=== PATIENT | female | born 1970 | race Caucasian/White ===

== ENCOUNTER 2016-05-03 15:13 | Emergency (ER) | payer MEDICAID, MEDICARE ==
[~2016-05-03] VITALS: Ht 180.3 cm; Wt 108.9 kg
[~2016-05-03 15:13] MED LIST: ACHD5005 PO; ACHYD1T PO; ALBU17AE23 IH; AZIT500T2 PO; CLIN150V3 IJ; CYCL10TA9; DOXY100C2 PO; FIBERCHOICE; FISH OIL 1,2001 EAC1; FRS325T; GABA300T; HYDR1TAB PO; NAPR-243 PO; NITR100C3 PO; OXYC-12 PO; PEDI100T PO; PNT40TEC; SCR1T; TYLENOL #3 PO; VENL150C PO; VNL75T
--- OUTSIDE RECORDS SUMMARY | 2016-05-03 15:21 | XMS REPORT ---
Author ARIANNE Sarabia [facility] [employer] Address Unknown Phone Unavailable Care Team Providers [facility] Worker Name Role Phone ARIANNE CARTAGENA CP Unavailable Allergies, Adverse Reactions, Alerts Substance Reaction Event Type Latex Gloves Info Not Available Drug Allergy Tylenol Info Not Available Drug Allergy Sulfazine hives Drug Allergy Risperidone wt gain Drug Allergy Bactrim hives Drug Allergy Problems Problem Type Condition Code Onset Dates Condition Status Assessment Dental examination Z01.20 Active Problem Dizziness R42 Active Problem Routine adult health maintenance Z00.00 Active Problem Weight loss R63.4 Active Problem Irritable bowel syndrome with diarrhea K58.0 Active Problem Depression with anxiety F41.8 Active Problem Excessive and frequent menstruation with regular cycle N92.0 Active Problem Arthritis M19.90 Active Medications Medication Code System Code Instructions Start Date End Date Status Dosage [place] [facility] [place] [address]-13 5-325 MG Orally every 6 hrs Jan 17, 2016 Jan 21, 2016 1 tablet as needed Mobic [facility] [address]-66 7.5 MG Orally 2 times a day May 13, [address] [facility] [place] [address]-43 500 MG Orally Four times a day Jan 17, 2016 Jan 24, [address] [facility] 43318937148 8-90 MG Orally Twice a day [address] [facility] [id number] 20 MG TAKE ONE TABLET BY MOUTH TWICE DAILY NEEDED (MUST KEEP 10/26/2014 APPOINTMENT FOR REFILL) Procedures Procedure Coding System Code Date INTRAORL-PERIAPICAL 1 FILM 06750 CPT-4 D0220 Jan 17, 2016 INTRAORL-PERIAPICAL EA ADD FILM CPT-4 D0230 Jan 17, 2016 LTD ORAL EVALUATION - PROBLEM FOCUS CPT-4 D0140 Jan 17, 2016 BITEWING - SINGLE FILM CPT-4 D0270 Jan 17, 2016 Vital Signs Date/Time: Jan 17, 2016 Blood Pressure Diastolic 78 mmHg Blood Pressure Systolic 125 mmHg Height 72 in Results No Known Results Summary Purpose eClinicalWorks Submission
[2016-05-03] MEDS ORDERED: NALT1TAB PO (16:06)
[2016-05-03] MEDS ORDERED: FERR159T2 PO (16:06)
[2016-05-03] MEDS ORDERED: CLINDAMYCIN 600 MG/4ML (CLEOCIN) VIAL IM ONE (17:00)
[2016-05-03] MEDS ORDERED: methylPREDNISolone 125 MG (Solu-MEDROL) VIAL IM ONE (17:00)
--- NOTE | 2016-05-03 17:01 | ED Integumentary General ---
General Chief Complaint: Head/Cervical Problems Stated Complaint: KNOT ON HEAD Nursing Triage Note: Pt reports swelling to L yarsani x3 days and states swelling continues to get worse. Pt advises area is tender to touch and she is now experiencing pain in L ear and L jaw. Pt also c/o ISIDRO x3 days. Source: patient History of Present Illness Time seen by provider: 16:40 Initial Comments PT C/O PAIN, REDNESS AND SWELLING TO LEFT LUTHERAN AREA FOR THE LAST 2 DAYS STARTED OUT A SMALL PIMPLE AND NOW HAS GRADUALLY BECOME BIGGER, AND MORE PAINFUL NO DRAINAGE NO FEVER NO VISION CHANGES STATES NOW IT IS MAKING HER LEFT JAW AND EAR HURT AND IT'S GIVING HER A HEADACHE PCP: RUBA-ELIANA Allergies and Home Medications Allergies Coded Allergies: Sulfa (Sulfonamide Antibiotics) (Unverified Allergy, Mild, 12/19/08) Home Medications Clindamycin HCl 300 Mg Capsule #40 300 MG PO QID Prescribed by: ANNA MARIE TEMPLE on 05/03/16 1703 Ferrous Sulfate, Dried 159 Mg Tablet.er Unknown Dose PO DAILY (Reported) Hydrocodone Bit/Acetaminophen 1 Each Tablet #14 1-2 EACH PO Q6H PRN PRN Prescribed by: HIRA ALCALA on 08/02/11 1854 Methylprednisolone 4 Mg Tab.ds.pk #1 4 MG PO UD Prescribed by: ANNA MARIE TEMPLE on 05/03/16 1703 Naltrexone HCl/Bupropion HCl 1 Each Tablet.er 2 EACH PO BID (Reported) Constitutional: no symptoms reported EENTM: see HPI Respiratory: no symptoms reported Cardiovascular: no symptoms reported Gastrointestinal: no symptoms reported Genitourinary: no symptoms reported Musculoskeletal: see HPI Skin: see HPI Psychiatric/Neurological: See HPI HeadacheDenies Numbness, Denies Paresthesia , Denies Weakness Endocrine: No Symptoms Reported Hematologic/Lymphatic: No Symptoms Reported Past Szbuivk-Tkmble-Wcjthz Hx Patient Social History Alcohol Use: Denies Use Recreational Drug Use: No Smoking Status: Never a Smoker Recent Foreign Travel: No Contact w/Someone Who Travel: No Recent Infectious Disease Expo: No Recent Hopitalizations: No Immunizations Up To Date PED Vaccines UTD: Yes Date of Influenza Vaccine: Dec 17, 2010 Seasonal Allergies Seasonal Allergies: No Surgeries HX Surgeries: Yes (C-SECTIONS, VEIN SURG IN LEGS, RIGHT SHOULDER, DXLS) Surgeries: Section, Orthopedic, Vascular Surgery Respiratory Hx Respiratory Disorders: No Cardiovascular Hx Cardiac Disorders: No Neurological Hx Neurological Disorders: No Reproductive System Hx Reproductive Disorders: No Sexually Transmitted Disease: No Genitourinary Hx Genitourinary Disorders: No Gastrointestinal Hx Gastrointestinal Disorders: Yes Gastrointestinal Disorders: Ulcer Musculoskeletal Hx Musculoskeletal Disorders: Yes Musculoskeletal Disorders: Arthritis Endocrine Hx Endocrine Disorders: Yes (hypoglycemic) HEENT HX ENT Disorders: No Cancer Hx Cancer: No Psychosocial Hx Psychiatric Problems: Yes Behavioral Health Disorders: Anxiety, Depression Blood Transfusions Hx Blood Disorders: Yes (ANEMIA) Physical Exam Vital Signs Vital Sign - Last 12Hours 05/03/16 16:00 Temp 97.2 Pulse 91 Resp 18 B/P 119/74 Pulse Ox 100 O2 Delivery Room Air Capillary Refill : Less Than 3 Seconds General Appearance: WD/WN no apparent distress HEENT: PERRL/EOMI normal ENT inspection TMs normal pharynx normal other (LEFT LUTHERAN AREA WITH 5 CM AREA OF ERYTHEMA, WARMTH, INDURATION, MILD SWELLING, WITH CENTRAL SCAB. NO AREAS OF FLUCTUANCE. NO DRAINAGE. NO STREAKS. NO TRISMUS. NO PERIORBITAL EDEMA. 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 no motor/sensory deficits alert normal mood/affect oriented x 3 Skin: normal color warm/dry other ( ABOVE) Progress/Results/Core Measures Results/Orders My Orders Orders-ANNA MARIE TEMPLE DO Clindamycin Injection (Cleocin Injection (05/03/16 17:00) Methylprednisolone Sod Succ (Solu-Medrol (05/03/16 17:00) Im/Sub-Q Injection Non-Ab Ed (05/03/16 ) Im Injection Antibiotic Ed (05/03/16 ) Vital Signs/I&O Vital Sign - Last 12Hours 05/03/16 05/03/16 16:00 17:54 Temp 97.2 98.1 Pulse 91 106 Resp 18 18 B/P 119/74 Pulse Ox 100 98 O2 Delivery Room Air Blood Pressure Mean: 89 Departure Impression Impression: Primary Impression: CELLULITIS LEFT FACE Disposition: 01 HOME, SELF-CARE Condition: Stable Departure-Patient Inst. Referrals: [facility] (PCP/Family) Primary Care Physician Patient Instructions: Cellulitis (Skin Infection), Adult (DC) Add. Discharge Instructions: TYLENOL AND MOTRIN NEEDED FOR PAIN OR FEVER ICE TO AREA AT 20 MINUTE INTERVALS FOLLOW UP WITH [facility] IN 2-3 DAYS IF NO BETTER All discharge instructions reviewed with patient and/or family. Voiced understanding. Scripts Methylprednisolone (Medrol)4 Mg Tab.ds.pk4 Mg PO UD #1 PKG Prov:ANNA MARIE TEMPLE DO 05/03/16 Clindamycin HCl 300 Mg [id number] Mg PO QID FOR INFECTION #40 CAP Prov:ANNA MARIE TEMPLE DO 05/03/16 ANNA MARIE TEMPLE DO May 03, 2016 17:01
[2016-05-03] MEDS ORDERED: CLIN300C11 PO (17:03)
[2016-05-03] MEDS ORDERED: METH4TAB PO (17:03)
[2016-05-03 17:54] VITALS: BP 122/82
== END 2016-05-03 17:54 | disposition home or self-care (01) ==
LOC: EDUNIT# 15:13 → ER 15:15
DX: L03.211 Cellulitis of face (principal)
CPT/HCPCS: 96372; 99282

== ENCOUNTER → 2017-05-24 | Outpatient (CLI) | payer MEDICAID, OTHER ==
[~2017-05-24] MED LIST changes: +CLIN300C11 PO; +FERR159T2 PO; +METH4TAB PO; +NALT1TAB PO
--- NOTE | 2017-05-24 11:18 | Diagnostic Imaging Report ---
INDICATION: Routine screening. COMPARISON: 12/19/2005. TECHNIQUE: Screening digital mammography was performed bilaterally with a Computer Aided Detection (CAD) system. FINDINGS: Moderate parenchymal density is noted bilaterally. The parenchymal pattern appears to be stable. No dominant mass or malignant-appearing microcalcifications are seen. The axillae are unremarkable. IMPRESSION: No mammographic features suspicious for malignancy are identified. ACR BI-RADS Category 1: Negative. Result letter will be mailed to the patient. Note: At least 10% of breast cancer is not imaged by mammography. Dictated by: Dictated on workstation # [id number]
== END ==
LOC: RAD 08:53
PROVIDERS: ATTEND Obstetrics & Gynecology
DX: Z12.31 Encounter for screening mammogram for malignant neoplasm of breast (principal)
CPT/HCPCS: 77067

== ENCOUNTER 2018-10-21 14:32 | Emergency (ER) | payer SELFPAY ==
[~2018-10-21] VITALS: Ht 180.3 cm; Wt 90.7 kg
--- OUTSIDE RECORDS SUMMARY | 2018-10-21 14:37 | XMS REPORT ---
Author Author DOLORES BAZAN Organization [facility] Address [address] [place] [address] Care Team Providers Care Optical Instrument Repairer Name Role Phone DOLORES BAZAN Unavailable PROBLEMS Type Condition ICD9-CM Code PQW59-QD Code Onset Dates Condition Status SNOMED Code Problem Excessive and frequent menstruation with regular cycle N92.0 Active 561081540 Problem Irritable bowel syndrome with diarrhea K58.0 Active 15235618 Problem Arthritis M19.90 Active 8749320 Problem Gastroesophageal reflux disease without esophagitis K21.9 Active 746020928 Problem Gastroesophageal reflux disease without esophagitis K21.9 Active 673257526 Problem Depression with anxiety F41.8 Active 063647603 Problem Weight loss R63.4 Active 159864916 Problem Right carpal tunnel syndrome G56.01 Active 404753552962495 Problem Iron deficiency anemia, unspecified iron deficiency anemia type D50.9 Active 23838054 ALLERGIES Substance Reaction Event Type Date Status Tylenol elevated liver enzymes Drug Allergy May, Active Sulfamethoxazole-Trimethoprim hives Drug Allergy May, Active Risperidone wt gain Drug Allergy May, Active Latex Gloves Unknown Drug Allergy May, Active ENCOUNTERS Encounter Location Date Diagnosis [facility] [id number] [place] [address] Oct, [facility] [id number] [place] [address] Sep, Bronchitis J40 and Gastroesophageal reflux disease without esophagitis K21.9 [facility] [id number] [place] [address] May, Viral URI J06.9 and Body aches R52 [facility] [id number] [place] [address] 04 Oct, 2018 Abrasion of right cornea, initial encounter S05.01XA and Encounter for immunization Z23 [place] [id number] [place] [address] Sep, Thoracic spine pain M54.6 [facility] [id number] [place] [address] July, Acute nasopharyngitis J00 [facility] [address] [address] Jun, Dysuria R30.0 [place] [address] [address] May, Iron deficiency anemia, unspecified iron deficiency anemia type D50.9 [place] [id number] [place] [address] May, Iron deficiency anemia, unspecified iron deficiency anemia type D50.9 [place] [address] [address] May, Transition of care performed with sharing of clinical summary Z91.89 ; Iron deficiency anemia, unspecified iron deficiency anemia type D50.9 ; Irritable bowel syndrome with diarrhea K58.0 ; Weight loss R63.4 ; Right carpal tunnel syndrome G56.01 and Arthritis M19.90 [place] [id number] [place] [address] Oct, Iron deficiency anemia, unspecified iron deficiency anemia type D50.9 [place] [id number] [place] [address] Sep, Irritable bowel syndrome with diarrhea K58.0 and Right carpal tunnel syndrome G56.01 [place] [id number] [place] [address] Sep, Routine adult health maintenance Z00.00 ; Iron deficiency anemia, unspecified iron deficiency anemia type D50.9 and Irritable bowel syndrome with diarrhea K58.0 [place] [id number] [place] [address] Sep, Routine adult health maintenance Z00.00 ; Irritable bowel syndrome with diarrhea K58.0 ; Right carpal tunnel syndrome G56.01 ; Iron deficiency anemia, unspecified iron deficiency anemia type D50.9 and Weight loss R63.4 [place] [id number] [place] [address] Sep, Lateral epicondylitis of elbow M77.10 and Right carpal tunnel syndrome G56.01 [place] [address] [address] Aug, [facility] [address] [address] July, Tick bite, initial encounter W57.XXXA [place] [address] [address] May, [place] [address] [address] Feb, Right carpal tunnel syndrome G56.01 and Lateral epicondylitis of elbow M77.10 [place] [address] [address] Jan, Dental caries K02.9 [place] [id number] [place] [address] Jan, Transient synovitis, right elbow M67.321 [place] [id number] [place] [address] Jan, Transient synovitis, right elbow M67.321 [place] [address] [address] 31 Dec, 2015 Dental examination Z01.20 [place] [id number] [place] [address] 11 Dec, 2015 Olecranon bursitis, right elbow M70.21 [place] [address] [address] 13 Nov, 2015 [facility] [address] [address] 14 Sep, 2015 Right elbow pain M25.521 ; Olecranon bursitis, right elbow M70.21 and Morbid obesity due to excess calories E66.[address] [address] Aug, Arthritis M19.90 ; Depression with anxiety F41.8 ; Weight loss R63.4 and Dizziness R42 [address] [address] July, Stress headaches F45.41 and Dizziness R42 [facility] [address] [id number] Jun, Dental caries K02.[address] [address] May, Sinusitis J32.9 and Foot pain, left M79.672 [facility] [id number] [place] [address] Apr, Acute sinusitis J01.90 and Sore throat J02.9 [facility] [address] [id number] Apr, Dental caries K02.9 [facility] [id number] [place] [id number] Feb, Encounter for dental examination Z01.[address] [address] Dec, Routine adult health maintenance Z00.00 and Excessive and frequent menstruation with regular cycle N92.0 [place] [address] [address] Dec, Routine adult health maintenance Z00.00 ; Excessive and frequent menstruation with regular cycle N92.0 ; Arthritis M19.90 ; Irritable bowel syndrome with diarrhea K58.0 and Depression with anxiety F41.8 [facility] [address] [address] Oct, [facility] [id number] [address] Oct, Upper respiratory infection, acute 465.9 [facility] [id number] [place] [address] July, Acute upper respiratory infection 465.9 [facility] [address] [address] Jun, [facility] [id number] [place] [address] Jun, [facility] [id number] [place] [address] May, [facility] [id number] [place] [address] May, [facility] [address] [address] Apr, [facility] [address] [address] Apr, [facility] [address] [address] Apr, [facility] [address] [address] Apr, [facility] [address] [address] Jan, [facility] [address] [address] Jan, [facility] [address] [address] Jan, [facility] [id number] [place] [address] [place] [address] Jan, [facility] [place] [facility] [address] [id number] [place] [address] Jan, [facility] [place] [facility] [address] [id number] [place] [address] Jan, [facility] [place] [facility] [address] [id number] [place] [address] Dec, [facility] [place] [facility] [address] [id number] [place] [address] Dec, [facility] [place] [facility] [address] [id number] [place] [address] Dec, [facility] [place] [facility] [address] [id number] [place] [address] Dec, [facility] [place] [facility] [address] [id number] [place] [address] Nov, [facility] [place] [facility] [address] [id number] [place] [address] Nov, [facility] [place] [facility] [address] [id number] [place] [address] Oct, [facility] [place] [facility] [address] [id number] [place] [address] Oct, [facility] [place] [facility] [address] [id number] [place] [address] Aug, [facility] [place] [facility] [address] [id number] [address] Aug, [facility] [place] [facility] [address] [id number] [place] [address] Aug, [facility] [place] [facility] [address] [id number] [place] [address] Aug, [facility] [place] [facility] [address] [id number] [place] [address] Feb, [facility] [place] [facility] [address] [id number] [place] [address] Feb, [facility] [place] [facility] [address] [id number] [place] [address] Feb, [facility] [place] [facility] [address] [id number] [place] [address] Feb, [facility] [place] [facility] [address] [id number] [place] [address] Dec, [facility] [place] [facility] [address] [id number] [place] [address] Nov, [facility] [place] [facility] [address] [id number] [place] [address] Oct, [facility] [place] [facility] [address] [id number] [place] [address] Oct, [facility] [place] [facility] [address] [id number] [place] [address] Oct, [facility] [place] [facility] [address] [id number] [place] [address] Sep, [facility] [place] [facility] [address] [id number] [place] [address] Sep, [facility] [place] [facility] [address] [id number] [place] [address] Sep, [facility] [place] [facility] [address] [id number] [place] [address] Sep, [facility] [place] [facility] [address] [id number] [place] [address] Sep, [facility] [place] [facility] [address] [id number] [place] [address] Sep, [facility] [place] [facility] [address] [id number] [place] [address] Aug, [facility] [place] [facility] [address] [id number] [place] [address] Aug, [facility] [address] [id number] [place] [address] July, [facility] [address] [id number] [place] [address] July, [facility] [address] [id number] [place] [address] July, [facility] [place] [facility] [address] [id number] [place] [address] Jun, [facility] [address] [id number] [place] [address] Jun, [facility] [address] [id number] [place] [address] Jun, [facility] [address] [id number] [place] [address] May, [facility] [place] [facility] [address] [id number] [place] [address] Apr, [facility] [address] [id number] [place] [address] Nov, [facility] [place] [facility] [address] [id number] [place] [address] Mar, [facility] [address] [id number] [address] Feb, [facility] [place] [facility] [address] [id number] [address] Jan, [facility] [place] [facility] [address] [id number] [place] [address] Jan, [facility] [place] [facility] [address] [id number] [place] [address] Sep, [facility] [place] [facility] [address] [id number] [place] [address] Aug, [facility] [place] [facility] [address] [id number] [place] [address] 11 Jul, 2010 [facility] [address] [id number] [place] [address] 12 Jun, 2010 [facility] [address] [id number] [place] [address] 15 May, 2010 [facility] [address] [id number] [place] [address] 10 Feb, 2010 [facility] [address] [id number] [place] [address] 08 Feb, 2010 [facility] [address] [id number] [place] [address] 26 Jan, 2010 [facility] [address] [id number] [place] [address] 16 Jan, 2010 [facility] [address] [id number] [place] [address] 2010 [facility] [address] [id number] [place] [address] 2010 [facility] [address] [id number] [place] [address] 10 Jan, 2010 [facility] [address] [id number] [place] [address] 04 Jan, 2010 [facility] [address] [id number] [place] [address] 16 Oct, 2009 [facility] [address] [id number] [place] [address] 11 Aug, 2009 [facility] [address] [id number] [place] [address] 13 Mar, 2009 [facility] [address] [id number] [place] [address] 20 Jan, 2009 [facility] [address] [id number] [place] [address] Jan, [facility] [address] [facility] [id number] [place] [address] Dec, [facility] [address] [facility] [id number] [address] Dec, [facility] [address] [facility] [id number] [place] [address] July, IMMUNIZATIONS No Known Immunizations SOCIAL HISTORY Never Assessed REASON FOR VISIT cough, congestion, body aches. been sick since sunday evening. [email or web address] PLAN OF CARE Activity Details Follow Up if not improving with PCP or reg follow up Reason: VITAL SIGNS Height 72 in 2018-05-28 Weight 237.0 lbs 2018-05-28 Temperature 98.0 degrees Fahrenheit 2018-05-28 Heart Rate 80 bpm 2018-05-28 Respiratory Rate 20 2018-05-28 BMI 32.14 kg/m2 2018-05-28 Blood pressure systolic 128 mmHg 2018-05-28 Blood pressure diastolic 74 mmHg 2018-05-28 MEDICATIONS Medication Instructions Dosage Frequency Start Date End Date Duration Status Bentyl 10 MG Orally Four times a day 2 capsules 6h Active Tessalon Perles 100 MG Orally Three times a day PRN 1 -2 capsules May, 7 days Active Mobic 15 MG Orally twice a day 1 tablet 12h Active Multivitamin Gummies Womens - Orally Once a day 1 tablet 24h 30 days Active Ferrous Sulfate 325 (65 Fe) MG Orally Once a day 1 tablet 24h 30 days Active Contrave 8-90 MG Orally Twice a day 2 tablets 12h Active Gentamicin Sulfate 0.3 % Ophthalmic every 4 hrs while awake 1 drop into affected eye Dec, 5 days Not-Taking RESULTS Name Result Date Reference Range INFLUENZA A & B (IN HOUSE) 2018-05-28 INFLUENZA A negative INFLUENZA B negative Control + Lot # [id number] Exp date 2020 PROCEDURES Procedure Date Ordered Result Body Site INFLUENZA ASSAY W/OPTIC May 28, 2018 INSTRUCTIONS MEDICATIONS ADMINISTERED No Known Medications MEDICAL (GENERAL) HISTORY Type Description Date Medical History osteoarthritis Medical History hx of iron deficiency anemia Medical History PTSD Medical History depression Medical History Anxiety disorder Medical History mood disorder Medical History hx of blood clot in leg Surgical History surgery - right shoulder Surgical History section x2 Surgical History cyst removal Surgical History vein removal 2010 Surgical History Tendon restructure in right forearm/elbow 10/2016 Hospitalization History childbirth Hospitalization History elevated liver enzymes x6 weeks 1994
--- OUTSIDE RECORDS SUMMARY | 2018-10-21 14:37 | XMS REPORT ---
Author Author MATEO Woods Organization [facility] Address [address] [place] [address] Care Team Providers Care Client Technologies Analyst Name Role Phone MATEO Woods Unavailable PROBLEMS Type Condition ICD9-CM Code [id number] Code Onset Dates Condition Status SNOMED Code Problem Excessive and frequent menstruation with regular cycle N92.0 Active 889080793 Problem Irritable bowel syndrome with diarrhea K58.0 Active 26799265 Problem Arthritis M19.90 Active 3009342 Problem Gastroesophageal reflux disease without esophagitis K21.9 Active 709319298 Problem Gastroesophageal reflux disease without esophagitis K21.9 Active 208813957 Problem Depression with anxiety F41.8 Active 897383710 Problem Weight loss R63.4 Active 912238070 Problem Right carpal tunnel syndrome G56.01 Active [id number] Problem Iron deficiency anemia, unspecified iron deficiency anemia type D50.9 Active 32611209 ALLERGIES No Information ENCOUNTERS Encounter Location Date Diagnosis [facility] [address] [address] Oct, [facility] [address] [address] Sep, Bronchitis J40 and Gastroesophageal reflux disease without esophagitis K21.9 [facility] [address] [address] May, Viral URI J06.9 and Body aches R52 [facility] [address] [address] Dec, Abrasion of right cornea, initial encounter S05.01XA and Encounter for immunization Z23 [facility] [address] [address] Sep, Thoracic spine pain M54.6 [facility] [address] [address] July, Acute nasopharyngitis J00 [facility] [address], [place] [address] Jun, Dysuria R30.0 [facility] [id number] [place] [address] May, Iron deficiency anemia, unspecified iron deficiency anemia type D50.9 [facility] [address], [place] [address] May, Iron deficiency anemia, unspecified iron deficiency anemia type D50.9 [facility] [address], [place] [address] May, Transition of care performed with sharing of clinical summary Z91.89 ; Iron deficiency anemia, unspecified iron deficiency anemia type D50.9 ; Irritable bowel syndrome with diarrhea K58.0 ; Weight loss R63.4 ; Right carpal tunnel syndrome G56.01 and Arthritis M19.90 [facility] [id number] [place] [address] Oct, Iron deficiency anemia, unspecified iron deficiency anemia type D50.9 [facility] [address], [place] [address] Sep, Irritable bowel syndrome with diarrhea K58.0 and Right carpal tunnel syndrome G56.01 [facility] [address], [place] [address] Sep, Routine adult health maintenance Z00.00 ; Iron deficiency anemia, unspecified iron deficiency anemia type D50.9 and Irritable bowel syndrome with diarrhea K58.0 [facility] [id number] [address] Sep, Routine adult health maintenance Z00.00 ; Irritable bowel syndrome with diarrhea K58.0 ; Right carpal tunnel syndrome G56.01 ; Iron deficiency anemia, unspecified iron deficiency anemia type D50.9 and Weight loss R63.4 [facility] [id number] [place] [address] Sep, Lateral epicondylitis of elbow M77.10 and Right carpal tunnel syndrome G56.01 [facility] [id number] [place] [address] Aug, [facility] [id number] [place] [address] July, Tick bite, initial encounter W57.XXXA [facility] [address] [address] May, [facility] [address] [address] Feb, Right carpal tunnel syndrome G56.01 and Lateral epicondylitis of elbow M77.10 [facility] [address] [address] Jan, Dental caries K02.9 [facility] [address] [address] 11 Jan, 2016 Transient synovitis, right elbow M67.321 [facility] [id number] [place] [address] 03 Jan, 2016 Transient synovitis, right elbow M67.321 [facility] [id number] [place] [address] 31 Dec, 2015 Dental examination Z01.20 [facility] [id number] [place] [address] 11 Dec, 2015 Olecranon bursitis, right elbow M70.21 [facility] [id number] [place] [address] 13 Nov, 2015 [facility] [address] [address] Sep, Right elbow pain M25.521 ; Olecranon bursitis, right elbow M70.21 and Morbid obesity due to excess calories E66.01 [facility] [address] [address] Aug, Arthritis M19.90 ; Depression with anxiety F41.8 ; Weight loss R63.4 and Dizziness R42 [address] [address] July, Stress headaches F45.41 and Dizziness R42 [facility] [address] [id number] Jun, Dental caries K02.[address] [address] May, Sinusitis J32.9 and Foot pain, left M79.672 [facility] [address] [address] Apr, Acute sinusitis J01.90 and Sore throat J02.9 [facility] [address] [id number] Apr, Dental caries K02.9 [facility] [address] [id number] Feb, Encounter for dental examination Z01.[address] [address] Dec, Routine adult health maintenance Z00.00 and Excessive and frequent menstruation with regular cycle N92.[address] [address] Dec, Routine adult health maintenance Z00.00 ; Excessive and frequent menstruation with regular cycle N92.0 ; Arthritis M19.90 ; Irritable bowel syndrome with diarrhea K58.0 and Depression with anxiety F41.[address] [address] Oct, [facility] [address] [facility] [id number] [place] [address] Oct, Upper respiratory infection, acute 465.9 [facility] [address] [id number] [place] [address] July, Acute upper respiratory infection 465.9 [facility] [address] [id number] [place] [address] Jun, [facility] [address] [id number] [place] [address] Jun, [facility] [address] [id number] [place] [address], [place] [address] May, [facility] [address] [facility] [id number] [place] [address] May, [facility] [address] [address] Apr, [facility] [address] [facility] [id number] [place] [address] Apr, [facility] [address] [address] Apr, [facility] [id number] [address] Apr, [facility] [address] [address] Jan, [facility] [place] [facility] [address] [facility] [id number] [place] [address] Jan, [facility] [place] [facility] [address] [facility] [id number] [place] [address] Jan, [facility] [place] [facility] [address] [facility] [id number] [place] [address] Jan, [facility] [id number] [address] Jan, [facility] [place] [facility] [address] [id number] [place] [address] Jan, [facility] [place] [facility] [address] [id number] [place] [address] Dec, [facility] [place] [facility] [address] [id number] [place] [address] Dec, [facility] [place] [facility] [address] [id number] [place] [address] Dec, [facility] [place] [facility] [address] [id number] [place] [address] Dec, [facility] [place] [facility] [address] [id number] [place] [address] Nov, [facility] [place] [facility] [address] [id number] [place] [address] Nov, [facility] [place] [facility] [address] [id number] [place] [address] Oct, [facility] [place] [facility] [address] [id number] [place] [address] Oct, [facility] [place] [facility] [address] [facility] [id number], [place] [address] Aug, [facility] [place] [facility] [address] [id number], [place] [address] Aug, [facility] [place] [facility] [address] [id number], [place] [address] Aug, [facility] [place] [facility] [address] [id number], [place] [address] Aug, [facility] [place] [facility] [address] [id number], [place] [address] Feb, [facility] [place] [facility] [address] [id number], [place] [address] Feb, [facility] [place] [facility] [address] [id number], [place] [address] Feb, [facility] [address] [id number] [place] [address] Feb, [facility] [place] [facility] [address] [id number] [place] [address] Dec, [facility] [address] [id number] [place] [address] Nov, [facility] [place] [facility] [address] [id number] [place] [address] Oct, [facility] [address] [id number] [place] [address] Oct, [facility] [place] [facility] [address] [id number] [place] [address] Oct, [facility] [address] [id number] [place] [address] Sep, [facility] [place] [facility] [address] [id number] [place] [address] Sep, [facility] [address] [id number] [place] [address] Sep, [facility] [place] [facility] [address] [facility] [id number] [place] [address] Sep, [facility] [place] [facility] [address] [id number] [place] [address] Sep, [facility] [place] [facility] [address] [id number], [place] [address] Sep, [facility] [place] [facility] [address] [id number] [place] [address] Aug, [facility] [place] [facility] [address] [id number] [place] [address] Aug, [facility] [place] [facility] [address] [id number] [place] [address] July, [facility] [place] [facility] [address] [id number] [place] [address] July, [facility] [place] [facility] [address] [id number] [place] [address] July, [facility] [place] [facility] [address] [id number] [place] [address] Jun, [facility] [place] [facility] [address] [id number] [place] [address] Jun, [facility] [place] [facility] [address] [id number] [place] [address] Jun, [facility] [place] [facility] [address] [id number] [place] [address] May, [facility] [place] [facility] [address] [id number] [place] [address] Apr, [facility] [place] [facility] [address] [id number] [place] [address] Nov, [facility] [address] [id number] [place] [address] Mar, [facility] [place] [facility] [address] [id number] [place] [address] Feb, [facility] [place] [facility] [address] [id number] [place] [address] Jan, [facility] [place] [facility] [address] [id number] [place] [address] Jan, [facility] [place] [facility] [address] [id number] [place] [address] Sep, [facility] [place] [facility] [address] [id number] [place] [address] 14 Aug, 2010 [facility] [place] [facility] [address] [id number] [place] [address] July, [facility] [place] [facility] [address] [id number] [place] [address] 12 Jun, 2010 [facility] [place] [facility] [address] [id number], [place] [address] 15 May, 2010 [facility] [place] [facility] [address] [id number], [place] [address] 10 Feb, 2010 [facility] [place] [facility] [address] [facility] [id number] [place] [address] 08 Feb, 2010 [facility] [place] [facility] [address] [id number], [place] [address] Jan, [facility] [place] [facility] [address] [id number] [place] [address] 16 Jan, 2010 [facility] [place] [facility] [address] [id number], [place] [address] 2010 [facility] [place] [facility] [address] [id number], [place] [address] Jan, [facility] [place] [facility] [address] [id number], [place] [address] Jan, [facility] [place] [facility] [address] [id number], [place] [address] Jan, [facility] [place] [facility] [address] [id number], [place] [address] 16 Oct, 2009 [facility] [place] [facility] [address] [id number], [place] [address] 11 Aug, 2009 [facility] [place] [facility] [address] [id number], [place] [address] Mar, [facility] [place] [facility] [address] [id number], [place] [address] Jan, [facility] [place] [facility] [address] [id number], [place] [address] Jan, [facility] [place] [facility] [address] [id number], [place] [address] Dec, [facility] [place] [facility] [address] [facility] [id number] [place] [address] Dec, [facility] [address] [facility] [id number] [place] [address] July, IMMUNIZATIONS No Known Immunizations SOCIAL HISTORY Never Assessed REASON FOR VISIT PLAN OF CARE VITAL SIGNS MEDICATIONS Unknown Medications RESULTS No Results PROCEDURES Procedure Date Ordered Result Body Site COMPLETE CBC W/AUTO DIFF WBC June 12, 2014 ASSAY THYROID STIM HORMONE June 12, 2014 LIPID PANEL June 12, 2014 COMPREHEN METABOLIC PANEL June 12, 2014 VENIPUNCT, ROUTINE* June 12, 2014 INSTRUCTIONS MEDICATIONS ADMINISTERED No Known Medications MEDICAL [...]
--- NOTE | 2018-10-21 14:38 | NUR ---
pt here by self alert gcs 15. pt relates fell 1130 today positive hit head and neg loc. pt denies h/a and relates no need to check head out. pt here for just left foot injury. pt c/o pain rating 8 to left lateral foot prox last 2 toes on pinky toe side. positive pulse and sensation left foot. lst 2 toes left side slightly red and slightly swollen. no other obvious injry to left foot noted. ice and elevation pt a here w/o relief. done jessa pt 1444.
--- OUTSIDE RECORDS SUMMARY | 2018-10-21 14:38 | XMS REPORT ---
Author Author WATSONENRRIQUE Paz [facility] Address [address] [place] [address] Care Team Providers Care Supervisor Shop Name Role Phone ENRRIQUE WATSON Unavailable PROBLEMS Type Condition ICD9-CM Code [id number] Code Onset Dates Condition Status SNOMED Code Problem Excessive and frequent menstruation with regular cycle N92.0 Active 599297855 Problem Iron deficiency anemia, unspecified iron deficiency anemia type D50.9 Active 49729519 Problem Right carpal tunnel syndrome G56.01 Active 706693757399802 Problem Arthritis M19.90 Active 3444305 Problem Irritable bowel syndrome with diarrhea K58.0 Active 00182777 Problem Weight loss R63.4 Active 086246611 Problem Depression with anxiety F41.8 Active 799601989 ALLERGIES Substance Reaction Event Type Date Status Latex Gloves Unknown Drug Allergy Sep, Active Tylenol elevated liver enzymes Drug Allergy Sep, Active Sulfamethoxazole-Trimethoprim hives Drug Allergy Sep, Active Risperidone wt gain Drug Allergy Sep, Active Bactrim hives Drug Allergy Sep, Active ENCOUNTERS Encounter Location Date Diagnosis [facility] [id number] [place] [address] Sep, Thoracic spine pain M54.6 [facility] [id number] [place] [address] July, Acute nasopharyngitis J00 [facility] [id number] [place] [address] Jun, Dysuria R30.0 [facility] [id number] [place] [address] May, Iron deficiency anemia, unspecified iron deficiency anemia type D50.9 [facility] [id number] [place] [address] May, Iron deficiency anemia, unspecified iron deficiency anemia type D50.9 [place] [id number] [place] [address] May, Transition of care performed with sharing of clinical summary Z91.89 ; Iron deficiency anemia, unspecified iron deficiency anemia type D50.9 ; Irritable bowel syndrome with diarrhea K58.0 ; Weight loss R63.4 ; Right carpal tunnel syndrome G56.01 and Arthritis M19.90 [place] [id number] [place] [address] Oct, Iron deficiency anemia, unspecified iron deficiency anemia type D50.9 [place] [id number] [place] [address] Sep, Irritable bowel syndrome with diarrhea K58.0 and Right carpal tunnel syndrome G56.[address] [address] Sep, Routine adult health maintenance Z00.00 ; Iron deficiency anemia, unspecified iron deficiency anemia type D50.9 and Irritable bowel syndrome with diarrhea K58.0 [place] [id number] [place] [address] Sep, Routine adult health maintenance Z00.00 ; Irritable bowel syndrome with diarrhea K58.0 ; Right carpal tunnel syndrome G56.01 ; Iron deficiency anemia, unspecified iron deficiency anemia type D50.9 and Weight loss R63.4 [address] [place] [address] Sep, Lateral epicondylitis of elbow M77.10 and Right carpal tunnel syndrome G56.01 [place] [id number] [place] [address] Aug, [facility] [address] [place] [id number] [place] [address] July, Tick bite, initial encounter W57.XXXA [address] [place] [id number] [place] [address] May, [place] [address] [address] Feb, Right carpal tunnel syndrome G56.01 and Lateral epicondylitis of elbow M77.10 [place] [address] [address] Jan, Dental caries K02.9 [place] [address] [address] 11 Jan, 2016 Transient synovitis, right elbow M67.321 [place] [address] [address] 03 Jan, 2016 Transient synovitis, right elbow M67.321 [place] [address] [address] 31 Dec, 2015 Dental examination Z01.20 [place] [address] [address] 11 Dec, 2015 Olecranon bursitis, right elbow M70.21 [place] [address] [address] 13 Nov, 2015 [place] [id number] [place] [address] 14 Sep, 2015 Right elbow pain M25.521 ; Olecranon bursitis, right elbow M70.21 and Morbid obesity due to excess calories E66.01 [place] [id number] [place] [address] 07 Aug, 2015 Arthritis M19.90 ; Depression with anxiety F41.8 ; Weight loss R63.4 and Dizziness R42 [place] [id number] [place] [address] 18 Jul, 2015 Stress headaches F45.41 and Dizziness R42 [facility] [address] [id number] Jun, Dental caries K02.9 [facility] [id number] [place] [address] May, Sinusitis J32.9 and Foot pain, left M79.672 [facility] [id number] [place] [address] Apr, Acute sinusitis J01.90 and Sore throat J02.9 [facility] [id number] [place] [id number] Apr, Dental caries K02.9 [facility] [address] [id number] Feb, Encounter for dental examination Z01.20 [place] [id number] [place] [address] Dec, Routine adult health maintenance Z00.00 and Excessive and frequent menstruation with regular cycle N92.0 [facility] [id number] [place] [address] Dec, Routine adult health maintenance Z00.00 ; Excessive and frequent menstruation with regular cycle N92.0 ; Arthritis M19.90 ; Irritable bowel syndrome with diarrhea K58.0 and Depression with anxiety F41.8 [place] [id number] [place] [address] Oct, [facility] [id number] [place] [address] Oct, Upper respiratory infection, acute 465.9 [facility] [id number] [place] [address] July, Acute upper respiratory infection 465.9 [facility] [id number] [place] [address] Jun, [facility] [id number] [place] [address] Jun, [facility] [address] [facility] [id number] [place] [address] May, [facility] [place] [facility] [address] [id number] [place] [address] May, [facility] [place] [facility] [address] [id number] [place] [address] Apr, 2014 [facility] [place] [facility] [address] [id number] [place] [address] Apr, 2014 [facility] [place] [facility] [address] [id number] [place] [address] Apr, [facility] [place] [facility] [address] [id number] [place] [address] Apr, [facility] [place] [facility] [address] [id number] [place] [address] Jan, [facility] [place] [facility] [address] [id number] [place] [address] Jan, [facility] [place] [facility] [address] [id number] [place] [address] Jan, [facility] [place] [facility] [address] [id number] [place] [address] Jan, [facility] [place] [facility] [address] [id number] [place] [address] Jan, [facility] [place] [facility] [address] [id number] [place] [address] Jan, [facility] [place] [facility] [address] [id number] [place] [address] Dec, [facility] [place] [facility] [address] [id number] [place] [address] Dec, [facility] [place] [facility] [address] [id number] [place] [address] Dec, [facility] [place] [facility] [address] [id number] [place] [address] Dec, [facility] [place] [facility] [address] [id number] [place] [address] Nov, [facility] [place] [facility] [address] [id number] [place] [address] Nov, [facility] [place] [facility] [address] [id number] [place] [address] Oct, [facility] [place] [facility] [address] [id number] [place] [address] Oct, [facility] [place] [facility] [address] [id number] [place] [address] Aug, [facility] [place] [facility] [address] [id number] [place] [address] Aug, [facility] [place] [facility] [address] [id number] [place] [address] Aug, [facility] [place] [facility] [address] [id number] [place] [address] Aug, [facility] [place] [facility] [address] [id number] [place] [address] Feb, [facility] [place] [facility] [address] [id number] [place] [address] Feb, [facility] [place] [facility] [address] [id number] [address] Feb, [facility] [place] [facility] [address] [id number] [address] Feb, [facility] [place] [facility] [address] [id number] [place] [address] Dec, [facility] [place] [facility] [address] [id number] [place] [address] 16 Nov, 2012 [facility] [place] [facility] [address] [id number] [place] [address] Oct, [facility] [place] [facility] [address] [id number] [place] [address] Oct, [facility] [address] [id number] [place] [address] Oct, [facility] [address] [id number] [place] [address] Sep, [facility] [address] [id number] [place] [address] Sep, [facility] [address] [id number] [place] [address] Sep, [facility] [address] [id number] [place] [address] Sep, [facility] [address] [id number] [place] [address] Sep, [facility] [address] [id number] [place] [address] Sep, [facility] [address] [id number] [place] [address] Aug, [facility] [address] [id number] [place] [address] Aug, [facility] [address] [id number] [place] [address] July, [facility] [address] [id number] [place] [address] July, [facility] [address] [id number] [place] [address] July, [facility] [address] [id number] [place] [address] Jun, [facility] [address] [id number] [place] [address] Jun, [facility] [address] [id number] [place] [address] Jun, [facility] [address] [id number] [place] [address] 08 May, 2012 [facility] [place] [facility] [address] [id number] [place] [address] 05 Apr, 2012 [facility] [place] [facility] [address] [id number] [place] [address] Nov, [facility] [place] [facility] [address] [id number] [place] [address] Mar, [facility] [address] [id number] [place] [address] Feb, [facility] [place] [facility] [address] [id number] [place] [address] Jan, [facility] [place] [facility] [address] [id number] [place] [address] Jan, [facility] [address] [id number] [place] [address] Sep, [facility] [place] [facility] [address] [id number] [place] [address] 14 Aug, 2010 [facility] [place] [facility] [address] [facility] [id number] [place] [address] July, [facility] [place] [facility] [address] [id number] [place] [address] Jun, [facility] [place] [facility] [address] [id number], [place] [address] 15 May, 2010 [facility] [place] [facility] [address] [id number] [place] [address] Feb, [facility] [place] [facility] [address] [id number] [place] [address] Feb, [facility] [place] [facility] [address] [facility] [id number][place] [address] Jan, [facility] [place] [facility] [address] [id number], [place] [address] 16 Jan, 2010 [facility] [id number] [address] 2010 [facility] [id number] [address] 2010 [facility] [id number] [address] 10 Jan, 2010 [facility] [id number] [place] [address] 04 Jan, 2010 [facility] [id number] [place] [address] Oct, [facility] [id number] [address] Aug, [facility] [id number] [address] Mar, [facility] [id number] [address] Jan, [facility] [id number] [address] Jan, [facility] [id number] [address] Dec, [facility] [id number] [address] Dec, [facility] [id number] [address] July, IMMUNIZATIONS No Known Immunizations SOCIAL HISTORY Never Assessed REASON FOR VISIT acute back pain., patient states she strained her back while getting out of bed two days ago and has tried everything and nothing will help the pain go away-awo ods PLAN OF CARE Activity Details Follow Up prn, 3 Months Reason:CHM/W/PCP VITAL SIGNS Height 72 in 2017-10-01 Weight 226.2 lbs 2017-10-01 Temperature 98.7 degrees Fahrenheit 2017-10-01 Heart Rate 82 bpm 2017-10-01 Respiratory Rate 20 2017-10-01 BMI 30.67 kg/m2 2017-10-01 Blood pressure systolic 138 mmHg 2017-10-01 Blood pressure diastolic 84 mmHg 2017-10-01 MEDICATIONS Medication Instructions Dosage Frequency Start Date End Date Duration Status Mobic 15 MG Orally twice a day 1 tablet 12h Active Bentyl 10 MG Orally Four times a day 2 capsules 6h Active Ferrous Sulfate 325 (65 Fe) MG Orally Once a day 1 tablet 24h 30 days Active Multivitamin Gummies Womens - Orally Once a day 1 tablet 24h 30 days Active PredniSONE 10 mg Orally Once a day 4 tabs x 4 days, 3 tabs x 4 days, 2 tabs x 4 days, then 1 tab x 4 days 24h Sep, Oct, 16 days Active Contrave 8-90 MG Orally Twice a day 2 tablets 12h Active RESULTS Name Result Date Reference Range Xray : Spine, Thoracic 2 views (IN HOUSE) 2017-10-01 PROCEDURES Procedure Date Ordered Result Body Site X-RAY EXAM OF THORACIC SPINE October 01, 2017 INSTRUCTIONS MEDICATIONS ADMINISTERED No Known Medications MEDICAL [...]
--- OUTSIDE RECORDS SUMMARY | 2018-10-21 14:38 | XMS REPORT ---
Author Author Migration, Doctor Organization [facility] Address Unknown Phone Unavailable Care Team Providers Care Meter Maintenance Person Name Role Phone Migration, Doctor Unavailable Unavailable PROBLEMS Type Condition ICD9-CM Code HYI97-XT Code Onset Dates Condition Status SNOMED Code Problem Excessive and frequent menstruation with regular cycle N92.0 Active 333362675 Problem Right carpal tunnel syndrome G56.01 Active [id number] Problem Iron deficiency anemia, unspecified iron deficiency anemia type D50.9 Active 33650148 Problem Irritable bowel syndrome with diarrhea K58.0 Active 06290639 Problem Arthritis M19.90 Active 2327993 Problem Depression with anxiety F41.8 Active 012743714 Problem Weight loss R63.4 Active [id number] ALLERGIES No Information ENCOUNTERS Encounter Location Date Diagnosis [facility] [address] [address] May, Viral URI J06.9 and Body aches R52 [facility] [address] [address] Dec, Abrasion of right cornea, initial encounter S05.01XA and Encounter for immunization Z23 [place] [id number] [place] [address] Sep, Thoracic spine pain M54.6 [facility] [address] [address] July, Acute nasopharyngitis J00 [facility] [address] [address] Jun, Dysuria R30.0 [place] [address] [address] [id number] [place] [address] May, Iron deficiency anemia, unspecified iron deficiency anemia type D50.9 [place] [address] [id number] [place] [address] May, Iron deficiency anemia, unspecified iron deficiency anemia type D50.9 [place] [id number] [place] [address] May, Transition of care performed with sharing of clinical summary Z91.89 ; Iron deficiency anemia, unspecified iron deficiency anemia type D50.9 ; Irritable bowel syndrome with diarrhea K58.0 ; Weight loss R63.4 ; Right carpal tunnel syndrome G56.01 and Arthritis M19.90 [place] [id number] [place] [address] Oct, Iron deficiency anemia, unspecified iron deficiency anemia type D50.9 [place] [id number] [place] [address] Sep, Irritable bowel syndrome with diarrhea K58.0 and Right carpal tunnel syndrome G56.01 [place] [id number] [place] [address] Sep, Routine adult health maintenance Z00.00 ; Iron deficiency anemia, unspecified iron deficiency anemia type D50.9 and Irritable bowel syndrome with diarrhea K58.0 [place] [id number] [place] [address] Sep, Routine adult health maintenance Z00.00 ; Irritable bowel syndrome with diarrhea K58.0 ; Right carpal tunnel syndrome G56.01 ; Iron deficiency anemia, unspecified iron deficiency anemia type D50.9 and Weight loss R63.4 [place] [id number] [place] [address] Sep, Lateral epicondylitis of elbow M77.10 and Right carpal tunnel syndrome G56.01 [place] [id number] [place] [address] Aug, [facility] [id number] [place] [address] July, Tick bite, initial encounter W57.XXXA [place] [address] [id number] [place] [address] May, [place] [address] [address] 29 Feb, 2016 Right carpal tunnel syndrome G56.01 and Lateral epicondylitis of elbow M77.10 [place] [address] [address] Jan, Dental caries K02.9 [place] [address] [address] 11 Jan, 2016 Transient synovitis, right elbow M67.321 [place] [address] [address] 03 Jan, 2016 Transient synovitis, right elbow M67.321 [place] [address] [address] 31 Dec, 2015 Dental examination Z01.20 [place] [address] [address] 11 Dec, 2015 Olecranon bursitis, right elbow M70.21 [place] [address] [address] 13 Nov, 2015 [place] [address] [address] 14 Sep, 2015 Right elbow pain M25.521 ; Olecranon bursitis, right elbow M70.21 and Morbid obesity due to excess calories E66.01 [place] [address] [id number] [place] [address] 07 Aug, 2015 Arthritis M19.90 ; Depression with anxiety F41.8 ; Weight loss R63.4 and Dizziness R42 [place] [address] [address] 18 Jul, 2015 Stress headaches F45.41 and Dizziness R42 [facility] [id number] [place] [id number] Jun, Dental caries K02.9 [facility] [address] [address] May, Sinusitis J32.9 and Foot pain, left M79.672 [facility] [id number] [place] [address] Apr, Acute sinusitis J01.90 and Sore throat J02.9 [facility] [id number] [place] [id number] Apr, Dental caries K02.9 [facility] [address] [id number] Feb, Encounter for dental examination Z01.20 [place] [address] [address] Dec, Routine adult health maintenance Z00.00 and Excessive and frequent menstruation with regular cycle N92.0 [place] [address] [id number] [place] [address] Dec, Routine adult health maintenance Z00.00 ; Excessive and frequent menstruation with regular cycle N92.0 ; Arthritis M19.90 ; Irritable bowel syndrome with diarrhea K58.0 and Depression with anxiety F41.8 [place] [address] [id number] [place] [address] Oct, [facility] [id number] [place] [address] Oct, Upper respiratory infection, acute 465.9 [place] [address] [address] July, Acute upper respiratory infection 465.9 [place] [address] [id number] [place] [address] Jun, [place] [address] [address] Jun, [facility] [place] [facility] [address] [id number] [place] [address] May, [facility] [place] [facility] [address] [id number] [place] [address] May, [facility] [place] [facility] [address] [id number] [place] [address] Apr, [facility] [place] [facility] [address] [id number] [place] [address] Apr, [facility] [place] [facility] [address] [id number] [place] [address] Apr, [facility] [place] [facility] [address] [id number] [place] [address] Apr, [facility] [place] [facility] [address] [id number] [place] [address] Jan, [facility] [place] [facility] [address] [id number], [place] [address] Jan, [facility] [place] [facility] [address] [id number] [place] [address] Jan, [facility] [place] [facility] [address] [facility] [id number], [place] [address] Jan, [facility] [place] [facility] [address] [id number], [place] [address] Jan, [facility] [place] [facility] [address] [id number], [place] [address] Jan, [facility] [place] [facility] [address] [id number] [place] [address] Dec, [facility] [place] [facility] [address] [id number], [place] [address] Dec, [facility] [place] [facility] [address] [id number] [place] [address] Dec, [facility] [place] [facility] [address] [id number] [place] [address] 24 Dec, 2013 [facility] [place] [facility] [address] [id number] [place] [address] Nov, [facility] [place] [facility] [address] [id number] [place] [address] Nov, [facility] [place] [facility] [address] [id number] [place] [address] Oct, [facility] [place] [facility] [address] [id number] [place] [address] Oct, [facility] [place] [facility] [address] [id number] [place] [address] Aug, [facility] [place] [facility] [address] [id number] [place] [address] Aug, [facility] [place] [facility] [address] [id number] [place] [address] Aug, [facility] [place] [facility] [address] [id number] [place] [address] Aug, [facility] [place] [facility] [address] [id number] [place] [address] Feb, [facility] [place] [facility] [address] [id number] [place] [address] 30 Feb, 2013 [facility] [place] [facility] [address] [id number] [place] [address] Feb, [facility] [place] [facility] [address] [id number] [place] [address] Feb, [facility] [place] [facility] [address] [id number] [place] [address] Dec, [facility] [place] [facility] [address] [id number] [place] [address] 16 Nov, 2012 [facility] [place] [facility] [address] [id number] [place] [address] Oct, [facility] [place] [facility] [address] [id number] [place] [address] Oct, [facility] [address] [id number] [place] [address] Oct, [facility] [place] [facility] [address] [id number] [place] [address] Sep, [facility] [address] [id number] [place] [address] Sep, [facility] [address] [id number] [place] [address] Sep, [facility] [place] [facility] [address] [id number] [place] [address] Sep, [facility] [address] [id number] [place] [address] Sep, [facility] [address] [id number] [place] [address] Sep, [facility] [address] [id number] [place] [address] Aug, [facility] [place] [facility] [address] [id number] [place] [address] Aug, [facility] [place] [facility] [address] [id number] [place] [address] July, [facility] [place] [facility] [address] [id number] [place] [address] July, [facility] [place] [facility] [address] [id number] [place] [address] July, [facility] [place] [facility] [address] [id number] [place] [address] Jun, [facility] [place] [facility] [address] [id number] [place] [address] Jun, [facility] [place] [facility] [address] [id number] [place] [address] Jun, [facility] [address] [id number] [place] [address] 08 May, 2012 [facility] [place] [facility] [address] [id number] [place] [address] 05 Apr, 2012 [facility] [address] [id number] [place] [address] Nov, [facility] [place] [facility] [address] [id number] [place] [address] Mar, [facility] [address] [id number] [place] [address] Feb, [facility] [place] [facility] [address] [id number] [place] [address] Jan, [facility] [address] [id number] [place] [address] Jan, [facility] [place] [facility] [address] [id number] [place] [address] Sep, [facility] [address] [id number] [place] [address] 14 Aug, 2010 [facility] [place] [facility] [address] [id number] [place] [address] July, [facility] [address] [id number] [place] [address] Jun, [facility] [place] [facility] [address] [id number] [place] [address] 15 May, 2010 [facility] [place] [facility] [address] [id number] [place] [address] Feb, [facility] [place] [facility] [address] [id number] [place] [address] Feb, [facility] [place] [facility] [address] [id number] [place] [address] Jan, [facility] [place] [facility] [address] [address] 16 Jan, 2010 [facility] [address], [place] [address] 2010 [facility] [address], [place] [address] 2010 [facility] [address], [place] [address] 10 Jan, 2010 [facility] [address], [place] [address] 04 Jan, 2010 [facility] [id number] [place] [address] 16 Oct, 2009 [facility] [address], [place] [address] Aug, [facility] [id number] [place] [address] Mar, [facility] [address], [place] [address] Jan, [facility] [id number] [place] [address] Jan, [facility] [address], [place] [address] Dec, [facility] [id number], [place] [address] Dec, [facility] [address], [place] [address] July, IMMUNIZATIONS No Known Immunizations SOCIAL HISTORY Never Assessed REASON FOR VISIT [place] [place] VITAL SIGNS MEDICATIONS No Known Medications RESULTS No Results PROCEDURES No Known procedures INSTRUCTIONS MEDICATIONS ADMINISTERED No Known Medications MEDICAL [...]
--- OUTSIDE RECORDS SUMMARY | 2018-10-21 14:38 | XMS REPORT ---
Author Author Migration, Doctor Organization [facility] Address Unknown Phone Unavailable Care Team Providers Care Revenue Manager Name Role Phone Migration, Doctor Unavailable Unavailable PROBLEMS Type Condition ICD9-CM Code JSB55-MT Code Onset Dates Condition Status SNOMED Code Problem Excessive and frequent menstruation with regular cycle N92.0 Active 218011438 Problem Right carpal tunnel syndrome G56.01 Active 166044725397807 Problem Iron deficiency anemia, unspecified iron deficiency anemia type D50.9 Active 64092694 Problem Irritable bowel syndrome with diarrhea K58.0 Active 62362679 Problem Arthritis M19.90 Active 2073957 Problem Depression with anxiety F41.8 Active 763576166 Problem Weight loss R63.4 Active 776352627 ALLERGIES Substance Reaction Event Type Date Status Bactrim Unknown Drug Allergy Jun, Active Risperidone 0.5 Mg Tablet Unknown Non Drug Allergy Jun, Active ENCOUNTERS Encounter Location Date Diagnosis [facility] [address] [address] May, Viral URI J06.9 and Body aches R52 [facility] [id number] [place] [address] Dec, Abrasion of right cornea, initial encounter S05.01XA and Encounter for immunization Z23 [facility] [place] [id number] [place] [address] Sep, Thoracic spine pain M54.6 [facility] [address] [place] [address] July, Acute nasopharyngitis J00 [facility] [address] [address] Jun, Dysuria R30.0 [facility] [place] [address] [address] May, Iron deficiency anemia, unspecified iron deficiency anemia type D50.9 [facility] [place] [address] [place] [address] May, Iron deficiency anemia, unspecified iron deficiency anemia type D50.9 [facility] [place] [address] [place] [address] May, Transition of care performed with sharing of clinical summary Z91.89 ; Iron deficiency anemia, unspecified iron deficiency anemia type D50.9 ; Irritable bowel syndrome with diarrhea K58.0 ; Weight loss R63.4 ; Right carpal tunnel syndrome G56.01 and Arthritis M19.90 [place] [address] [place] [address] Oct, Iron deficiency anemia, unspecified iron deficiency anemia type D50.9 [place] [address] [place] [address] Sep, Irritable bowel syndrome with diarrhea K58.0 and Right carpal tunnel syndrome G56.01 [place] [address] [place] [address] Sep, Routine adult health maintenance Z00.00 ; Iron deficiency anemia, unspecified iron deficiency anemia type D50.9 and Irritable bowel syndrome with diarrhea K58.0 [place] [address] [place] [address] Sep, Routine adult health maintenance Z00.00 ; Irritable bowel syndrome with diarrhea K58.0 ; Right carpal tunnel syndrome G56.01 ; Iron deficiency anemia, unspecified iron deficiency anemia type D50.9 and Weight loss R63.4 [place] [address] [place] [address] Sep, Lateral epicondylitis of elbow M77.10 and Right carpal tunnel syndrome G56.01 [facility] [place] [address] [place] [address] Aug, [facility] [id number] [place] [address] July, Tick bite, initial encounter W57.XXXA [place] [address] [address] May, [place] [address] [address] Feb, Right carpal tunnel syndrome G56.01 and Lateral epicondylitis of elbow M77.10 [place] [address] [address] Jan, Dental caries K02.9 [place] [address] [address] 11 Jan, 2016 Transient synovitis, right elbow M67.[address] [address] 03 Jan, 2016 Transient synovitis, right elbow M67.321 [place] [address] [address] 31 Dec, 2015 Dental examination Z01.20 [place] [address] [address] 11 Dec, 2015 Olecranon bursitis, right elbow M70.21 [place] [address] [address] 13 Nov, 2015 [place] [address] [address] 14 Sep, 2015 Right elbow pain M25.521 ; Olecranon bursitis, right elbow M70.21 and Morbid obesity due to excess calories E66.01 [place] [address] [address] 07 Aug, 2015 Arthritis M19.90 ; Depression with anxiety F41.8 ; Weight loss R63.4 and Dizziness R42 [place] [address] [address] July, Stress headaches F45.41 and Dizziness R42 [facility] [id number] [place] [id number] Jun, Dental caries K02.9 [facility] [place] [address] [address] May, Sinusitis J32.9 and Foot pain, left M79.672 [facility] [address] [address] Apr, Acute sinusitis J01.90 and Sore throat J02.9 [facility] [address] [id number] Apr, Dental caries K02.9 [facility] [address] [id number] Feb, Encounter for dental examination Z01.20 [place] [address] [address] Dec, Routine adult health maintenance Z00.00 and Excessive and frequent menstruation with regular cycle N92.[address] [address] Dec, Routine adult health maintenance Z00.00 ; Excessive and frequent menstruation with regular cycle N92.0 ; Arthritis M19.90 ; Irritable bowel syndrome with diarrhea K58.0 and Depression with anxiety F41.8 [place] [id number] [place] [address] Oct, [place] [address] [address] Oct, Upper respiratory infection, acute 465.9 [place] [address] [address] July, Acute upper respiratory infection 465.9 [place] [address] [address] 14 Jun, 2014 [facility] [place] [facility] [address] [id number] [place] [address] Jun, [facility] [place] [facility] [address] [id number] [place] [address] May, [facility] [place] [facility] [address] [id number] [place] [address] May, [facility] [place] [facility] [address] [id number] [place] [address] Apr, [facility] [place] [facility] [address] [id number] [place] [address] Apr, [facility] [place] [facility] [address] [id number] [place] [address] Apr, [facility] [place] [facility] [address] [id number] [place] [address] Apr, [facility] [place] [facility] [address] [id number] [place] [address] Jan, [facility] [place] [facility] [address] [id number] [place] [address] Jan, [facility] [place] [facility] [address] [id number] [place] [address] Jan, [facility] [place] [facility] [address] [id number] [place] [address] Jan, [facility] [place] [facility] [address] [id number] [place] [address] Jan, [facility] [place] [facility] [address] [id number] [place] [address] Jan, [facility] [place] [facility] [address] [id number] [place] [address] Dec, [facility] [place] [facility] [address] [id number] [place] [address] Dec, [facility] [place] [facility] [address] [id number] [place] [address] Dec, [facility] [place] [facility] [address] [id number] [place] [address] Dec, [facility] [place] [facility] [address] [id number] [place] [address] Nov, [facility] [place] [facility] [address] [id number] [place] [address] Nov, [facility] [place] [facility] [address] [id number] [place] [address] Oct, [facility] [place] [facility] [address] [id number] [place] [address] Oct, [facility] [place] [facility] [address] [id number] [place] [address] Aug, [facility] [place] [facility] [address] [id number] [place] [address] Aug, [facility] [place] [facility] [address] [id number] [place] [address] Aug, [facility] [place] [facility] [address] [id number] [place] [address] Aug, [facility] [place] [facility] [address] [id number] [place] [address] Feb, [facility] [place] [facility] [address] [id number] [place] [address] 30 Feb, 2013 [facility] [place] [facility] [address] [id number] [place] [address] Feb, [facility] [place] [facility] [address] [id number] [place] [address] Feb, [facility] [place] [facility] [address] [id number] [place] [address] Dec, [facility] [place] [facility] [address] [id number] [place] [address] 16 Nov, 2012 [facility] [place] [facility] [address] [id number] [place] [address] Oct, [facility] [address] [id number] [place] [address] Oct, [facility] [place] [facility] [address] [id number] [place] [address] Oct, [facility] [place] [facility] [address] [id number] [place] [address] Sep, [facility] [place] [facility] [address] [id number] [place] [address] Sep, [facility] [place] [facility] [address] [id number] [place] [address] Sep, [facility] [address] [id number] [place] [address] Sep, [facility] [place] [facility] [address] [id number] [place] [address] Sep, [facility] [address] [id number] [place] [address] Sep, [facility] [place] [facility] [address] [id number] [place] [address] Aug, [facility] [place] [facility] [address] [id number] [place] [address] Aug, [facility] [place] [facility] [address] [id number] [place] [address] July, [facility] [place] [facility] [address] [id number] [place] [address] July, [facility] [place] [facility] [address] [id number] [place] [address] July, [facility] [place] [facility] [address] [id number] [place] [address] Jun, [facility] [place] [facility] [address] [id number] [place] [address] Jun, [facility] [address] [id number] [place] [address] Jun, [facility] [place] [facility] [address] [id number] [place] [address] May, [facility] [place] [facility] [address] [id number] [place] [address] Apr, [facility] [place] [facility] [address] [id number] [place] [address] Nov, [facility] [place] [facility] [address] [id number] [place] [address] Mar, [facility] [place] [facility] [address] [id number] [place] [address] Feb, [facility] [place] [facility] [address] [id number] [place] [address] Jan, [facility] [place] [facility] [address] [id number] [place] [address] Jan, [facility] [place] [facility] [address] [id number] [place] [address] Sep, [facility] [place] [facility] [address] [id number] [place] [address] Aug, [facility] [place] [facility] [address] [id number] [place] [address] July, [facility] [place] [facility] [address] [id number] [place] [address] Jun, [facility] [place] [facility] [address] [id number] [place] [address] 15 May, 2010 [facility] [place] [facility] [address] [id number] [place] [address] Feb, [facility] [place] [facility] [address] [id number] [place] [address] Feb, [facility] [place] [facility] [address] [place] [address] 26 Jan, 2010 [facility] [place] [address] [place] [address] 16 Jan, 2010 [facility] [place] [address] [place] [address] Jan, [facility] [place] [address] [place] [address] 2010 [facility] [place] [address] [place] [address] Jan, [facility] [place] [id number] [place] [address] 04 Jan, 2010 [facility] [place] [address] [place] [address] Oct, [facility] [place] [id number] [place] [address] Aug, [facility] [place] [address] [place] [address] Mar, [facility] [id number] [place] [address] Jan, [facility] [place] [address] [place] [address] Jan, [facility] [address] [place] [address] Dec, [facility] [address] [place] [address] Dec, [facility] [address] [place] [address] July, IMMUNIZATIONS No Known Immunizations SOCIAL HISTORY Never Assessed REASON FOR VISIT [facility]MR[facility] PLAN OF CARE VITAL SIGNS MEDICATIONS Medication Instructions Dosage Frequency Start Date End Date Duration Status Mobic 15 mg 1 Tablet by Po route 1 time per day Apr, Active Ketoconazole 2 % 1 roe by Topical route 1 time per day Apr, Active Flexeril 10 mg 1 tablet by Oral route 1 time per day PRN muscle spasm. May cause drowsiness Feb, Active Keflex 250 mg take 1 capsule (250 mg) by oral route every 6 hours for 6 days July, Active PredniSONE 10 mg 1 Tablet by Oral route 2 times per day for 5 days Take at 8 am and noon. Feb, Active Bentyl 20 mg 1 tablet by Oral route 2 times per day PRN Apr, Active RESULTS No Results PROCEDURES No Known procedures [...]
--- OUTSIDE RECORDS SUMMARY | 2018-10-21 14:39 | XMS REPORT ---
Author Author LETICIA CROCKETT [facility] Address [address] [place] [address] Care Team Providers Care First Officer Name Role Phone LETICIA CROCKETT Unavailable PROBLEMS Type Condition ICD9-CM Code NKZ04-FA Code Onset Dates Condition Status SNOMED Code Problem Excessive and frequent menstruation with regular cycle N92.0 Active 080360335 Problem Iron deficiency anemia, unspecified iron deficiency anemia type D50.9 Active 08872843 Problem Right carpal tunnel syndrome G56.01 Active 529913938238506 Problem Arthritis M19.90 Active 5429855 Problem Irritable bowel syndrome with diarrhea K58.0 Active 48782363 Problem Weight loss R63.4 Active 906467587 Problem Depression with anxiety F41.8 Active 338905599 ALLERGIES Substance Reaction Event Type Date Status Latex Gloves Unknown Drug Allergy Jun, Active Tylenol elevated liver enzymes Drug Allergy Jun, Active Sulfamethoxazole-Trimethoprim hives Drug Allergy Jun, Active Risperidone wt gain Drug Allergy Jun, Active Bactrim hives Drug Allergy Jun, Active ENCOUNTERS Encounter Location Date Diagnosis [facility] [id number] [place] [address] Sep, Thoracic spine pain M54.6 [facility] [id number] [place] [address] July, Acute nasopharyngitis J00 [facility] [id number] [place] [address] Jun, Dysuria R30.0 [facility] [id number] [place] [address] May, Iron deficiency anemia, unspecified iron deficiency anemia type D50.9 [facility] [id number] [place] [address] May, Iron deficiency anemia, unspecified iron deficiency anemia type D50.9 [place] [place] [id number] [place] [address] May, Transition of care performed with sharing of clinical summary Z91.89 ; Iron deficiency anemia, unspecified iron deficiency anemia type D50.9 ; Irritable bowel syndrome with diarrhea K58.0 ; Weight loss R63.4 ; Right carpal tunnel syndrome G56.01 and Arthritis M19.90 [facility] [id number] [place] [address] Oct, Iron deficiency anemia, unspecified iron deficiency anemia type D50.9 [facility] [id number] [place] [address] Sep, Irritable bowel syndrome with diarrhea K58.0 and Right carpal tunnel syndrome G56.01 [address] [id number] [place] [address] Sep, Routine adult health maintenance Z00.00 ; Iron deficiency anemia, unspecified iron deficiency anemia type D50.9 and Irritable bowel syndrome with diarrhea K58.0 [facility] [place] [id number] [place] [address] Sep, Routine adult health maintenance Z00.00 ; Irritable bowel syndrome with diarrhea K58.0 ; Right carpal tunnel syndrome G56.01 ; Iron deficiency anemia, unspecified iron deficiency anemia type D50.9 and Weight loss R63.4 [place] [place] [id number] [place] [address] Sep, Lateral epicondylitis of elbow M77.10 and Right carpal tunnel syndrome G56.01 [facility] [place] [id number] [place] [address] Aug, [facility] [id number] [place] [address] July, Tick bite, initial encounter W57.XXXA [place] [id number] [place] [address] May, [place] [address] [address] Feb, Right carpal tunnel syndrome G56.01 and Lateral epicondylitis of elbow M77.10 [facility] [place] [id number] [place] [address] Jan, Dental caries K02.9 [place] [address] [address] 11 Jan, 2016 Transient synovitis, right elbow M67.321 [place] [address] [address] 03 Jan, 2016 Transient synovitis, right elbow M67.321 [place] [address] [address] 31 Dec, 2015 Dental examination Z01.20 [place] [address] [address] 11 Dec, 2015 Olecranon bursitis, right elbow M70.21 [place] [address] [address] 13 Nov, 2015 [place] [address] [address] 14 Sep, 2015 Right elbow pain M25.521 ; Olecranon bursitis, right elbow M70.21 and Morbid obesity due to excess calories E66.01 [place] [id number] [place] [address] 07 Aug, 2015 Arthritis M19.90 ; Depression with anxiety F41.8 ; Weight loss R63.4 and Dizziness R42 [place] [id number] [place] [address] 18 Jul, 2015 Stress headaches F45.41 and Dizziness R42 [facility] [address] [id number] Jun, Dental caries K02.9 [facility] [id number] [place] [address] May, Sinusitis J32.9 and Foot pain, left M79.672 [facility] [id number] [place] [address] Apr, Acute sinusitis J01.90 and Sore throat J02.9 [facility] [id number] [place] [id number] Apr, Dental caries K02.9 [facility] [address] [id number] Feb, Encounter for dental examination Z01.20 [place] [id number] [place] [address] Dec, Routine adult health maintenance Z00.00 and Excessive and frequent menstruation with regular cycle N92.0 [facility] [id number] [place] [address] Dec, Routine adult health maintenance Z00.00 ; Excessive and frequent menstruation with regular cycle N92.0 ; Arthritis M19.90 ; Irritable bowel syndrome with diarrhea K58.0 and Depression with anxiety F41.8 [place] [id number] [place] [address] Oct, [facility] [id number] [place] [address] Oct, Upper respiratory infection, acute 465.9 [facility] [id number] [place] [address] July, Acute upper respiratory infection 465.9 [place] [id number] [place] [address] 14 Jun, 2014 [place] [id number] [place] [address] Jun, [facility] [place] [facility] [address] [id number] [place] [address] May, [facility] [place] [facility] [address] [id number] [place] [address] May, [facility] [place] [facility] [address] [id number] [place] [address] Apr, 2014 [facility] [place] [facility] [address] [id number] [place] [address] Apr, 2014 [facility] [place] [facility] [address] [id number] [place] [address] Apr, [facility] [place] [facility] [address] [id number] [place] [address] Apr, [facility] [place] [facility] [address] [facility] [id number] [place] [address] Jan, [facility] [place] [facility] [address] [id number] [place] [address] Jan, [facility] [place] [facility] [address] [id number] [place] [address] Jan, [facility] [place] [facility] [address] [facility] [id number] [place] [address] Jan, [facility] [place] [facility] [address] [facility] [id number] [place] [address] Jan, [facility] [place] [facility] [address] [id number] [place] [address] Jan, [facility] [place] [facility] [address] [id number] [place] [address] Dec, [facility] [place] [facility] [address] [id number] [place] [address] Dec, [facility] [place] [facility] [address] [id number] [place] [address] Dec, [facility] [place] [facility] [address] [id number] [place] [address] Dec, [facility] [place] [facility] [address] [id number] [place] [address] Nov, [facility] [place] [facility] [address] [id number] [place] [address] Nov, [facility] [place] [facility] [address] [id number] [place] [address] Oct, [facility] [place] [facility] [address] [id number] [place] [address] Oct, [facility] [place] [facility] [address] [id number] [place] [address] Aug, [facility] [place] [facility] [address] [id number] [place] [address] Aug, [facility] [place] [facility] [address] [id number] [place] [address] Aug, [facility] [place] [facility] [address] [id number] [place] [address] Aug, [facility] [place] [facility] [address] [id number] [place] [address] Feb, [facility] [place] [facility] [address] [id number] [place] [address] Feb, [facility] [place] [facility] [address] [id number] [place] [address] Feb, [facility] [place] [facility] [address] [id number] [place] [address] Feb, [facility] [place] [facility] [address] [id number] [place] [address] Dec, [facility] [place] [facility] [address] [id number] [place] [address] 16 Nov, 2012 [facility] [place] [facility] [address] [id number] [place] [address] Oct, [facility] [place] [facility] [address] [id number] [place] [address] Oct, [facility] [address] [id number] [place] [address] Oct, [facility] [address] [id number] [place] [address] Sep, [facility] [address] [id number] [place] [address] Sep, [facility] [address] [id number] [place] [address] Sep, [facility] [address] [id number] [place] [address] Sep, [facility] [address] [id number] [place] [address] Sep, [facility] [address] [id number] [place] [address] Sep, [facility] [address] [id number] [place] [address] Aug, [facility] [address] [id number] [place] [address] Aug, [facility] [address] [id number] [place] [address] July, [facility] [address] [id number] [place] [address] July, [facility] [address] [id number] [place] [address] July, [facility] [address] [id number] [place] [address] Jun, [facility] [address] [id number] [place] [address] Jun, [facility] [address] [id number] [place] [address] Jun, [facility] [address] [id number] [place] [address] 08 May, 2012 [facility] [place] [facility] [address] [id number] [place] [address] 05 Apr, 2012 [facility] [address] [id number] [place] [address] 26 Nov, 2011 [facility] [place] [facility] [address] [id number] [place] [address] Mar, [facility] [address] [id number] [place] [address] Feb, [facility] [place] [facility] [address] [id number] [place] [address] Jan, [facility] [place] [facility] [address] [id number] [place] [address] Jan, [facility] [address] [id number] [place] [address] Sep, [facility] [place] [facility] [address] [id number] [place] [address] 14 Aug, 2010 [facility] [place] [facility] [address] [id number] [place] [address] July, [facility] [place] [facility] [address] [id number] [place] [address] Jun, [facility] [place] [facility] [address] [id number] [place] [address] 15 May, 2010 [facility] [place] [facility] [address] [id number] [place] [address] Feb, [facility] [place] [facility] [address] [id number] [place] [address] Feb, [facility] [place] [facility] [address] [id number] [place] [address] Jan, [facility] [place] [facility] [id number] [address] 16 Jan, 2010 [facility] [address] [address] 2010 [facility] [address] [address] 2010 [facility] [address] [address] 10 Jan, 2010 [facility] [id number] [place] [address] 04 Jan, 2010 [facility] [id number] [place] [address] Oct, [facility] [address] [address] Aug, [facility] [id number] [place] [address] Mar, [facility] [address] [address] Jan, [facility] [id number] [place] [address] Jan, [facility] [address] [address] Dec, [facility] [address] [address] Dec, [facility] [address] [address] July, IMMUNIZATIONS No Known Immunizations SOCIAL HISTORY Never Assessed REASON FOR VISIT UTI Pt c/o pain with urination which started today [employer] PLAN OF CARE Activity Details Follow Up prn Reason: VITAL SIGNS Height 72 in 2017-06-27 Weight 227.3 lbs 2017-06-27 Temperature 98.0 degrees Fahrenheit 2017-06-27 Heart Rate 76 bpm 2017-06-27 Respiratory Rate 20 2017-06-27 BMI 30.82 kg/m2 2017-06-27 Blood pressure systolic 140 mmHg 2017-06-27 Blood pressure diastolic 78 mmHg 2017-06-27 MEDICATIONS Medication Instructions Dosage Frequency Start Date End Date Duration Status Contrave 8-90 MG Orally Twice a day 2 tablets 12h Sep, 30 days Active Ferrous Sulfate 325 (65 Fe) MG Orally Once a day 1 tablet 24h 30 days Active Multivitamin Gummies Womens - Orally Once a day 1 tablet 24h 30 days Active Bentyl 20 mg Orally Four times a day 1 tablet 6h Sep, 30 days Active Mobic 7.5 MG Orally 2 times a day 1 tablet 12h 25 Apr, 2014 Sep, 30 days Active RESULTS Name Result Date Reference Range UA LONG DIP (IN HOUSE) 2017-06-27 Lot # [id number] Exp date 2018-01-16 Clarity sl cloudy Color yellow Odor yes GLU negative LILIANE negative KET negative SG >=1.030 BLO 2+ pH 6.0 Protein negative URO 2.0 NIT negative JOHN negative Lot # [id number] Exp date 06/2017 PROCEDURES Procedure Date Ordered Result Body Site URINALYSIS, AUTO, W/O SCOPE June 27, 2017 INSTRUCTIONS MEDICATIONS ADMINISTERED No Known Medications [...]
--- OUTSIDE RECORDS SUMMARY | 2018-10-21 14:39 | XMS REPORT ---
Author Author SRI BARRAGAN Organization [facility] Address [address] [place] [address] Care Team Providers Care Ob/Gyn Doctor Name Role Phone SRI BARRAGAN Unavailable PROBLEMS Type Condition ICD9-CM Code XGI35-QP Code Onset Dates Condition Status SNOMED Code Problem Excessive and frequent menstruation with regular cycle N92.0 Active 537207178 Problem Iron deficiency anemia, unspecified iron deficiency anemia type D50.9 Active 27246974 Problem Right carpal tunnel syndrome G56.01 Active [id number] Problem Arthritis M19.90 Active 8538201 Problem Irritable bowel syndrome with diarrhea K58.0 Active 91410492 Problem Weight loss R63.4 Active 770253054 Problem Depression with anxiety F41.8 Active [id number] ALLERGIES No Information ENCOUNTERS Encounter Location Date Diagnosis [facility] [id number] [place] [address] July, Acute nasopharyngitis J00 [facility] [id number] [place] [address] Jun, Dysuria R30.0 [place] [id number] [place] [address] May, Iron deficiency anemia, unspecified iron deficiency anemia type D50.9 [facility] [id number] [place] [address] May, Iron deficiency anemia, unspecified iron deficiency anemia type D50.9 [place] [id number] [place] [address] May, Transition of care performed with sharing of clinical summary Z91.89 ; Iron deficiency anemia, unspecified iron deficiency anemia type D50.9 ; Irritable bowel syndrome with diarrhea K58.0 ; Weight loss R63.4 ; Right carpal tunnel syndrome G56.01 and Arthritis M19.90 [place] [id number] [place] [address] Oct, Iron deficiency anemia, unspecified iron deficiency anemia type D50.9 [place] [id number] [place] [address] Sep, Irritable bowel syndrome with diarrhea K58.0 and Right carpal tunnel syndrome G56.01 [place] [id number] [place] [address] Sep, Routine adult health maintenance Z00.00 ; Iron deficiency anemia, unspecified iron deficiency anemia type D50.9 and Irritable bowel syndrome with diarrhea K58.0 [place] [id number] [place] [address] Sep, Routine adult health maintenance Z00.00 ; Irritable bowel syndrome with diarrhea K58.0 ; Right carpal tunnel syndrome G56.01 ; Iron deficiency anemia, unspecified iron deficiency anemia type D50.9 and Weight loss R63.4 [place] [id number] [place] [address] Sep, Lateral epicondylitis of elbow M77.10 and Right carpal tunnel syndrome G56.01 [place] [id number] [place] [address] Aug, [facility] [id number] [place] [address] July, Tick bite, initial encounter W57.XXXA [place] [id number] [place] [address] May, [place] [address] [address] Feb, Right carpal tunnel syndrome G56.01 and Lateral epicondylitis of elbow M77.10 [place] [address] [address] Jan, Dental caries K02.9 [place] [address] [address] Jan, Transient synovitis, right elbow M67.321 [place] [address] [address] Jan, Transient synovitis, right elbow M67.321 [place] [address] [address] 31 Dec, 2015 Dental examination Z01.20 [place] [address] [address] 11 Dec, 2015 Olecranon bursitis, right elbow M70.21 [place] [address] [address] 13 Nov, 2015 [place] [address] [address] 14 Sep, 2015 Right elbow pain M25.521 ; Olecranon bursitis, right elbow M70.21 and Morbid obesity due to excess calories E66.01 [place] [address] [address] 07 Aug, 2015 Arthritis M19.90 ; Depression with anxiety F41.8 ; Weight loss R63.4 and Dizziness R42 [place] [address] [address] July, Stress headaches F45.41 and Dizziness R42 [facility] [address] [id number] Jun, Dental caries K02.9 [place] [address] [address] May, Sinusitis J32.9 and Foot pain, left M79.672 [facility] [address] [address] 19 Feb, 2016 Acute sinusitis J01.90 and Sore throat J02.9 [facility] [address] [id number] Apr, Dental caries K02.9 [facility] [id number] [place] [id number] Feb, Encounter for dental examination Z01.20 [facility] [id number] [place] [address] Dec, Routine adult health maintenance Z00.00 and Excessive and frequent menstruation with regular cycle N92.0 [facility] [id number] [place] [address] Dec, Routine adult health maintenance Z00.00 ; Excessive and frequent menstruation with regular cycle N92.0 ; Arthritis M19.90 ; Irritable bowel syndrome with diarrhea K58.0 and Depression with anxiety F41.8 [facility] [address] [place] [address] Oct, [facility] [id number] [place] [address] Oct, Upper respiratory infection, acute 465.9 [facility] [id number] [place] [address] July, Acute upper respiratory infection 465.9 [facility] [address] [place] [address] 14 Jun, 2014 [facility] [id number] [place] [address] Jun, [facility] [id number] [place] [address] May, [facility] [id number] [place] [address] May, [facility] [id number] [place] [address] Apr, [facility] [id number] [address] Apr, [facility] [place] [facility] [address] [id number] [place] [address] Apr, [facility] [place] [facility] [address] [id number] [place] [address] Apr, [facility] [place] [facility] [address] [id number] [place] [address] Jan, [facility] [place] [facility] [address] [id number] [place] [address] Jan, [facility] [place] [facility] [address] [id number] [place] [address] Jan, [facility] [place] [facility] [address] [id number] [place] [address] Jan, [facility] [place] [facility] [address] [id number] [place] [address] Jan, [facility] [place] [facility] [address] [id number] [place] [address] Jan, [facility] [place] [facility] [address] [id number] [place] [address] Dec, [facility] [place] [facility] [address] [id number] [place] [address] Dec, [facility] [place] [facility] [address] [id number] [place] [address] Dec, [facility] [place] [facility] [address] [id number] [place] [address] Dec, [facility] [place] [facility] [address] [id number] [place] [address] Nov, [facility] [place] [facility] [address] [id number] [place] [address] Nov, [facility] [place] [facility] [address] [id number] [place] [address] Oct, [facility] [place] [facility] [address] [id number] [place] [address] Oct, [facility] [place] [facility] [address] [id number] [place] [address] Aug, [facility] [place] [facility] [address] [id number] [place] [address] Aug, [facility] [place] [facility] [address] [id number] [place] [address] Aug, [facility] [place] [facility] [address] [id number] [place] [address] Aug, [facility] [place] [facility] [address] [id number] [place] [address] Feb, [facility] [place] [facility] [address] [id number] [place] [address] Feb, [facility] [place] [facility] [address] [id number] [place] [address] Feb, [facility] [place] [facility] [address] [id number] [place] [address] Feb, [facility] [place] [facility] [address] [id number] [place] [address] Dec, [facility] [place] [facility] [address] [id number] [place] [address] Nov, [facility] [place] [facility] [address] [id number] [address] Oct, [facility] [place] [facility] [address] [id number] [place] [address] Oct, [facility] [place] [facility] [address] [id number] [place] [address] Oct, [facility] [place] [facility] [address] [id number] [place] [address] Sep, [facility] [place] [facility] [address] [id number] [place] [address] Sep, [facility] [address] [id number] [place] [address] Sep, [facility] [address] [id number] [place] [address] Sep, [facility] [address] [id number] [place] [address] Sep, [facility] [address] [id number] [place] [address] Sep, [facility] [address] [id number] [place] [address] Aug, [facility] [address] [id number] [place] [address] Aug, [facility] [address] [id number] [place] [address] July, [facility] [address] [id number] [place] [address] July, [facility] [address] [id number] [place] [address] July, [facility] [address] [id number] [place] [address] Jun, [facility] [address] [id number] [place] [address] Jun, [facility] [address] [id number] [place] [address] Jun, [facility] [address] [id number] [place] [address] May, [facility] [place] [facility] [address] [id number] [place] [address] Apr, [facility] [address] [id number] [place] [address] Nov, [facility] [address] [id number] [place] [address] 10 Mar, 2011 [facility] [address] [id number] [place] [address] 08 Feb, 2011 [facility] [place] [facility] [address] [id number] [place] [address] 29 Jan, 2011 [facility] [place] [facility] [address] [id number] [place] [address] 02 Jan, 2011 [facility] [place] [facility] [address] [id number] [place] [address] 13 Sep, 2010 [facility] [place] [facility] [address] [id number] [place] [address] 14 Aug, 2010 [facility] [place] [facility] [address] [id number] [place] [address] July, [facility] [address] [id number] [place] [address] Jun, [facility] [place] [facility] [address] [id number] [place] [address] 15 May, 2010 [facility] [place] [facility] [address] [id number] [place] [address] 10 Feb, 2010 [facility] [place] [facility] [address] [id number] [place] [address] 08 Feb, 2010 [facility] [place] [facility] [address] [id number] [place] [address] 26 Jan, 2010 [facility] [place] [facility] [address] [id number] [place] [address] 16 Jan, 2010 [facility] [place] [facility] [address] [id number] [place] [address] 2010 [facility] [place] [facility] [address] [id number] [place] [address] 2010 [facility] [place] [facility] [address] [id number] [address] 10 Jan, 2010 [facility] [id number] [address] 04 Jan, 2010 [facility] [address] [address] Oct, [facility] [address] [address] Aug, [facility] [address] [address] Mar, [facility] [address] [address] Jan, [facility] [id number] [place] [address] Jan, [facility] [address] [address] Dec, [facility] [address] [address] Dec, [facility] [id number] [address] July, IMMUNIZATIONS No Known Immunizations SOCIAL HISTORY Never Assessed [facility] VITAL SIGNS MEDICATIONS No Known Medications RESULTS No Results PROCEDURES Procedure Date Ordered Result Body Site IRON BINDING TEST May 24, 2017 ASSAY OF IRON May 24, 2017 ASSAY THYROID STIM HORMONE May 24, 2017 LIPID PANEL May 24, 2017 ASSAY OF FERRITIN May 24, 2017 COMPLETE CBC W/AUTO DIFF WBC May 24, 2017 COMPREHEN METABOLIC PANEL May 24, 2017 INSTRUCTIONS MEDICATIONS ADMINISTERED No Known Medications [...]
--- OUTSIDE RECORDS SUMMARY | 2018-10-21 14:39 | XMS REPORT ---
Author Author ROGELIO CACERES [facility] Address [address] [place] [address] Care Team Providers Care Hand Spring Former Name Role Phone ROGELIO CACERES Unavailable PROBLEMS Type Condition ICD9-CM Code ISU44-DC Code Onset Dates Condition Status SNOMED Code Problem Excessive and frequent menstruation with regular cycle N92.0 Active 474283447 Problem Iron deficiency anemia, unspecified iron deficiency anemia type D50.9 Active 63775948 Problem Right carpal tunnel syndrome G56.01 Active 042362769413477 Problem Arthritis M19.90 Active 9449364 Problem Irritable bowel syndrome with diarrhea K58.0 Active 00062236 Problem Weight loss R63.4 Active 560750313 Problem Depression with anxiety F41.8 Active 343371355 ALLERGIES Substance Reaction Event Type Date Status Latex Gloves Unknown Drug Allergy July, Active Tylenol elevated liver enzymes Drug Allergy July, Active Sulfamethoxazole-Trimethoprim hives Drug Allergy July, Active Risperidone wt gain Drug Allergy July, Active Bactrim hives Drug Allergy July, Active ENCOUNTERS Encounter Location Date Diagnosis [facility] [id number] [place] [address] Sep, Thoracic spine pain M54.6 [facility] [id number] [place] [address] July, Acute nasopharyngitis J00 [facility] IN [facility] [id number] [place] [address] Jun, Dysuria R[address].0 [facility] [id number] [place] [address] May, Iron deficiency anemia, unspecified iron deficiency anemia type D50.9 [facility] [id number] [address] May, Iron deficiency anemia, unspecified iron deficiency anemia type D50.9 [place] [id number] [place] [address] May, Transition of care performed with sharing of clinical summary Z91.89 ; Iron deficiency anemia, unspecified iron deficiency anemia type D50.9 ; Irritable bowel syndrome with diarrhea K58.0 ; Weight loss R63.4 ; Right carpal tunnel syndrome G56.01 and Arthritis M19.90 [place] [id number] [place] [address] Oct, Iron deficiency anemia, unspecified iron deficiency anemia type D50.9 [place] [id number] [place] [address] Sep, Irritable bowel syndrome with diarrhea K58.0 and Right carpal tunnel syndrome G56.01 [id number] [place] [address] Sep, Routine adult health maintenance Z00.00 ; Iron deficiency anemia, unspecified iron deficiency anemia type D50.9 and Irritable bowel syndrome with diarrhea K58.0 [place] [id number] [place] [address] Sep, Routine adult health maintenance Z00.00 ; Irritable bowel syndrome with diarrhea K58.0 ; Right carpal tunnel syndrome G56.01 ; Iron deficiency anemia, unspecified iron deficiency anemia type D50.9 and Weight loss R63.4 [place] [address] [place] [address] Sep, Lateral epicondylitis of elbow M77.10 and Right carpal tunnel syndrome G56.01 [place] [id number] [place] [address] Aug, [facility] [id number] [place] [address] July, Tick bite, initial encounter W57.XXXA [place] [id number] [place] [address] May, [place] [address] [address] Feb, Right carpal tunnel syndrome G56.01 and Lateral epicondylitis of elbow M77.10 [place] [address] [address] Jan, Dental caries K02.9 [place] [address] [address] 11 Jan, 2016 Transient synovitis, right elbow M67.321 [place] [address] [address] 03 Jan, 2016 Transient synovitis, right elbow M67.321 [place] [address] [address] 31 Dec, 2015 Dental examination Z01.20 [place] [address] [address] 11 Dec, 2015 Olecranon bursitis, right elbow M70.21 [place] [id number] [place] [address] 13 Nov, 2015 [place] [id number] [place] [address] 14 Sep, 2015 Right elbow pain M25.521 ; Olecranon bursitis, right elbow M70.21 and Morbid obesity due to excess calories E66.01 [place] [id number] [place] [address] 07 Aug, 2015 Arthritis M19.90 ; Depression with anxiety F41.8 ; Weight loss R63.4 and Dizziness R42 [place] [id number] [place] [address] 18 Jul, 2015 Stress headaches F45.41 and Dizziness R42 [facility] [address] [place] [id number] Jun, Dental caries K02.9 [facility] [address] [address] May, Sinusitis J32.9 and Foot pain, left M79.672 [facility] [id number] [place] [address] Apr, Acute sinusitis J01.90 and Sore throat J02.9 [facility] [address] [id number] Apr, Dental caries K02.9 [facility] [address] [id number] Feb, Encounter for dental examination Z01.20 [place] [address] [address] Dec, Routine adult health maintenance Z00.00 and Excessive and frequent menstruation with regular cycle N92.0 [place] [id number] [place] [address] Dec, Routine adult health maintenance Z00.00 ; Excessive and frequent menstruation with regular cycle N92.0 ; Arthritis M19.90 ; Irritable bowel syndrome with diarrhea K58.0 and Depression with anxiety F41.8 [place] [id number] [place] [address] Oct, [facility] [id number] [place] [address] Oct, Upper respiratory infection, acute 465.9 [place] [address] [address] July, Acute upper respiratory infection 465.9 [facility] [id number] [place] [address] Jun, [place] [id number] [place] [address] Jun, [facility] [place] [facility] [address] [id number] [place] [address] May, [facility] [place] [facility] [address] [id number] [place] [address] May, [facility] [place] [facility] [address] [id number] [place] [address] Apr, [facility] [place] [facility] [address] [id number] [place] [address] Apr, [facility] [place] [facility] [address] [id number] [place] [address] Apr, [facility] [place] [facility] [address] [id number] [place] [address] Apr, [facility] [place] [facility] [address] [id number] [place] [address] Jan, [facility] [place] [facility] [address] [id number] [address] Jan, [facility] [place] [facility] [address] [id number] [place] [address] Jan, [facility] [place] [facility] [address] [id number] [address] Jan, [facility] [place] [facility] [address] [id number], [place] [address] Jan, [facility] [place] [facility] [address] [id number] [address] Jan, [facility] [place] [facility] [address] [id number] [place] [address] Dec, [facility] [place] [facility] [address] [id number] [address] Dec, [facility] [place] [facility] [address] [id number] [place] [address] Dec, [facility] [place] [facility] [address] [id number] [place] [address] 24 Dec, 2013 [facility] [place] [facility] [address] [id number] [place] [address] Nov, [facility] [place] [facility] [address] [id number] [place] [address] Nov, [facility] [place] [facility] [address] [id number] [place] [address] Oct, [facility] [place] [facility] [address] [id number] [place] [address] Oct, [facility] [place] [facility] [address] [id number] [place] [address] Aug, [facility] [place] [facility] [address] [id number] [place] [address] Aug, [facility] [place] [facility] [address] [id number] [place] [address] Aug, [facility] [place] [facility] [address] [id number] [place] [address] Aug, [facility] [place] [facility] [address] [id number] [place] [address] Feb, [facility] [place] [facility] [address] [facility] [id number] [place] [address] 30 Feb, 2013 [facility] [place] [facility] [address] [id number] [place] [address] Feb, [facility] [place] [facility] [address] [id number] [place] [address] Feb, [facility] [place] [facility] [address] [id number] [place] [address] Dec, [facility] [place] [facility] [address] [id number] [place] [address] 16 Nov, 2012 [facility] [place] [facility] [address] [facility] [id number] [place] [address] Oct, [facility] [place] [facility] [address] [id number] [place] [address] Oct, [facility] [address] [id number] [place] [address] Oct, [facility] [address] [id number] [place] [address] Sep, [facility] [address] [id number] [place] [address] Sep, [facility] [address] [id number] [place] [address] Sep, [facility] [address] [id number] [place] [address] Sep, [facility] [address] [id number] [place] [address] Sep, [facility] [address] [id number] [place] [address] Sep, [facility] [address] [id number] [place] [address] Aug, [facility] [address] [id number] [place] [address] Aug, [facility] [address] [id number] [place] [address] July, [facility] [address] [id number] [place] [address] July, [facility] [place] [facility] [address] [id number] [place] [address] July, [facility] [place] [facility] [address] [id number] [place] [address] Jun, [facility] [place] [facility] [address] [id number] [place] [address] Jun, [facility] [place] [facility] [address] [id number] [place] [address] Jun, [facility] [place] [facility] [address] [id number] [place] [address] 08 May, 2012 [facility] [place] [facility] [address] [id number] [place] [address] 05 Apr, 2012 [facility] [place] [facility] [address] [id number] [place] [address] Nov, [facility] [place] [facility] [address] [id number] [place] [address] Mar, [facility] [place] [facility] [address] [id number] [place] [address] Feb, [facility] [place] [facility] [address] [id number] [place] [address] Jan, [facility] [place] [facility] [address] [id number] [place] [address] Jan, [facility] [place] [facility] [address] [id number] [place] [address] Sep, [facility] [place] [facility] [address] [id number] [place] [address] 14 Aug, 2010 [facility] [place] [facility] [address] [id number] [place] [address] July, [facility] [place] [facility] [address] [id number] [place] [address] Jun, [facility] [place] [facility] [address] [id number] [place] [address] 15 May, 2010 [facility] [place] [facility] [address] [id number] [place] [address] Feb, [facility] [place] [facility] [address] [id number] [place] [address] Feb, [facility] [place] [facility] [address] [id number] [place] [address] Jan, [facility] [place] [facility] [address] [address] [address] [facility] [id number] [address] [address] [facility] [address] [address] [address] [facility] [address] [address] [address], [address] [facility] [address] [address] 04 Jan, [address] [facility] [address] [place] [address] Oct, [facility] [address] [address] Aug, [facility] [id number] [place] [address] Mar, [facility] [address] [address] Jan, [facility] [address] [place] [address] Jan, [facility] [address] [address] Dec, [facility] [address] [address] Dec, [facility] [id number] [address] July, IMMUNIZATIONS No Known Immunizations SOCIAL HISTORY Never Assessed REASON FOR VISIT sore throat/cough Pt c/o sore throat and cough which started yesterday [employer] PLAN OF CARE Activity Details Follow Up if not improving or with pcp for regular fu, prn Reason: VITAL SIGNS Height 72 in 2017-08-15 Weight 227.0 lbs 2017-08-15 Temperature 98.9 degrees Fahrenheit 2017-08-15 Heart Rate 88 bpm 2017-08-15 Respiratory Rate 20 2017-08-15 BMI 30.78 kg/m2 2017-08-15 Blood pressure systolic 122 mmHg 2017-08-15 Blood pressure diastolic 62 mmHg 2017-08-15 MEDICATIONS Medication Instructions Dosage Frequency Start Date End Date Duration Status Multivitamin Gummies Womens - Orally Once a day 1 tablet 24h 30 days Active Bentyl 20 mg Orally Four times a day 1 tablet 6h Sep, 30 days Active Mobic 7.5 MG Orally 2 times a day 1 tablet 12h Apr, Sep, 30 days Active Contrave 8-90 MG Orally Twice a day 2 tablets 12h Sep, 30 days Active Ferrous Sulfate 325 (65 Fe) MG Orally Once a day 1 tablet 24h 30 days Active RESULTS No Results PROCEDURES No Known [...]
--- OUTSIDE RECORDS SUMMARY | 2018-10-21 14:39 | XMS REPORT ---
Author Author SRI BARRAGAN Organization [facility] Address [address] [place] [address] Care Team Providers Care Retail General Manager Name Role Phone SRI BARRAGAN Unavailable PROBLEMS Type Condition ICD9-CM Code NFT19-PK Code Onset Dates Condition Status SNOMED Code Problem Excessive and frequent menstruation with regular cycle N92.0 Active 747181948 Problem Iron deficiency anemia, unspecified iron deficiency anemia type D50.9 Active 35498674 Problem Right carpal tunnel syndrome G56.01 Active 558924814844647 Problem Arthritis M19.90 Active 6723795 Problem Irritable bowel syndrome with diarrhea K58.0 Active 28989674 Problem Weight loss R63.4 Active 450794295 Problem Depression with anxiety F41.8 Active 257215887 ALLERGIES No Information ENCOUNTERS Encounter Location Date Diagnosis [facility] [id number] [place] [address] Sep, Thoracic spine pain M54.6 [facility] [id number] [place] [address] July, Acute nasopharyngitis J00 [facility] [id number] [place] [address] Jun, Dysuria R30.0 [facility] [id number] [place] [address] May, Iron deficiency anemia, unspecified iron deficiency anemia type D50.9 [facility] [id number] [place] [address] May, Iron deficiency anemia, unspecified iron deficiency anemia type D50.9 [facility] [id number] [place] [address] May, Transition of care performed with sharing of clinical summary Z91.89 ; Iron deficiency anemia, unspecified iron deficiency anemia type D50.9 ; Irritable bowel syndrome with diarrhea K58.0 ; Weight loss R63.4 ; Right carpal tunnel syndrome G56.01 and Arthritis M19.90 [facility] [id number] [place] [address] Oct, Iron deficiency anemia, unspecified iron deficiency anemia type D50.9 [facility] [id number] [place] [address] Sep, Irritable bowel syndrome with diarrhea K58.0 and Right carpal tunnel syndrome G56.01 [facility] [id number] [place] [address] Sep, Routine adult health maintenance Z00.00 ; Iron deficiency anemia, unspecified iron deficiency anemia type D50.9 and Irritable bowel syndrome with diarrhea K58.0 [facility] [id number] [place] [address] Sep, Routine adult health maintenance Z00.00 ; Irritable bowel syndrome with diarrhea K58.0 ; Right carpal tunnel syndrome G56.01 ; Iron deficiency anemia, unspecified iron deficiency anemia type D50.9 and Weight loss R63.4 [facility] [address] [place] [address] Sep, Lateral epicondylitis of elbow M77.10 and Right carpal tunnel syndrome G56.01 [facility] [id number] [place] [address] Aug, [facility] [id number] [place] [address] July, Tick bite, initial encounter W57.XXXA [facility] [facility] [id number] [place] [address] May, [facility] [id number] [place] [address] Feb, Right carpal tunnel syndrome G56.01 and Lateral epicondylitis of elbow M77.10 [facility] [id number] [place] [address] Jan, Dental caries K02.9 [facility] [id number] [place] [address] 11 Jan, 2016 Transient synovitis, right elbow M67.321 [facility] [facility] [address] [address] 03 Jan, 2016 Transient synovitis, right elbow M67.321 [facility] [id number] [place] [address] 31 Dec, 2015 Dental examination Z01.20 [facility] [id number] [place] [address] 11 Dec, 2015 Olecranon bursitis, right elbow M70.21 [facility] [facility] [address] [address] 13 Nov, 2015 [facility] [facility] [address] [address] 14 Sep, 2015 Right elbow pain M25.521 ; Olecranon bursitis, right elbow M70.21 and Morbid obesity due to excess calories E66.01 [facility] [id number] [place] [address] 07 Aug, 2015 Arthritis M19.90 ; Depression with anxiety F41.8 ; Weight loss R63.4 and Dizziness R42 [facility] [id number] [place] [address] July, Stress headaches F45.41 and Dizziness R42 [facility] [place] [facility] [id number] [place] [phone] Jun, Dental caries K02.9 [place] [facility] [id number] [place] [address] May, Sinusitis J32.9 and Foot pain, left M79.672 [facility] [address] [address] Apr, Acute sinusitis J01.90 and Sore throat J02.9 [facility] [address] [id number] 08 Apr, 2015 Dental caries K02.9 [facility] [place] [id number] [place] [phone] Feb, Encounter for dental examination Z01.20 [facility] [id number] [place] [address] Dec, Routine adult health maintenance Z00.00 and Excessive and frequent menstruation with regular cycle N92.0 [facility] [id number] [place] [address] Dec, Routine adult health maintenance Z00.00 ; Excessive and frequent menstruation with regular cycle N92.0 ; Arthritis M19.90 ; Irritable bowel syndrome with diarrhea K58.0 and Depression with anxiety F41.8 [facility] [id number] [place] [address] Oct, [facility] [id number] [place] [address] Oct, Upper respiratory infection, acute 465.9 [facility] [id number] [place] [address] July, Acute upper respiratory infection 465.9 [facility] [address] [place] [address] Jun, [facility] [id number] [place] [address] Jun, [facility] [id number] [place] [address] May, [facility] [id number] [place] [address] May, [facility] [place] [facility] [address] [id number] [place] [address] Apr, 2014 [facility] [place] [facility] [address] [id number] [place] [address] Apr, 2014 [facility] [place] [facility] [address] [id number] [place] [address] Apr, [facility] [place] [facility] [address] [id number] [place] [address] Apr, [facility] [place] [facility] [address] [id number] [place] [address] Jan, [facility] [place] [facility] [address] [id number] [place] [address] Jan, [facility] [place] [facility] [address] [id number] [place] [address] Jan, [facility] [place] [facility] [address] [id number] [place] [address] Jan, [facility] [place] [facility] [address] [id number] [place] [address] Jan, [facility] [place] [facility] [address] [id number] [place] [address] Jan, [facility] [place] [facility] [address] [id number] [place] [address] Dec, [facility] [place] [facility] [address] [id number] [address] Dec, [facility] [place] [facility] [address] [id number] [place] [address] Dec, [facility] [place] [facility] [address] [id number] [place] [address] Dec, [facility] [place] [facility] [address] [id number] [place] [address] Nov, [facility] [place] [facility] [address] [id number] [place] [address] Nov, [facility] [place] [facility] [address] [id number] [place] [address] Oct, [facility] [place] [facility] [address] [id number] [place] [address] Oct, [facility] [place] [facility] [address] [id number] [place] [address] Aug, [facility] [place] [facility] [address] [id number] [place] [address] Aug, [facility] [place] [facility] [address] [id number] [place] [address] Aug, [facility] [place] [facility] [address] [id number] [place] [address] Aug, [facility] [place] [facility] [address] [id number] [place] [address] Feb, [facility] [place] [facility] [address] [id number] [place] [address] Feb, [facility] [place] [facility] [address] [id number] [place] [address] Feb, [facility] [place] [facility] [address] [id number] [place] [address] Feb, [facility] [place] [facility] [address] [id number] [place] [address] Dec, [facility] [place] [facility] [address] [id number] [place] [address] Nov, [facility] [place] [facility] [address] [id number] [place] [address] Oct, [facility] [place] [facility] [address] [id number] [place] [address] Oct, [facility] [place] [facility] [address] [id number] [place] [address] Oct, [facility] [place] [facility] [address] [id number] [place] [address] Sep, [facility] [address] [id number] [place] [address] Sep, [facility] [address] [id number] [place] [address] Sep, [facility] [address] [id number] [place] [address] Sep, [facility] [address] [id number] [place] [address] Sep, [facility] [address] [id number] [place] [address] Sep, [facility] [address] [id number] [place] [address] Aug, [facility] [address] [id number] [place] [address] Aug, [facility] [place] [facility] [address] [id number] [place] [address] July, [facility] [address] [id number] [place] [address] July, [facility] [place] [facility] [address] [id number] [place] [address] July, [facility] [address] [id number] [place] [address] Jun, [facility] [address] [id number] [place] [address] Jun, [facility] [address] [id number] [place] [address] Jun, [facility] [address] [id number] [place] [address] May, [facility] [address] [id number] [place] [address] Apr, [facility] [address] [id number] [place] [address] 26 Nov, 2011 [facility] [place] [facility] [address] [id number] [place] [address] Mar, [facility] [place] [facility] [address] [id number] [place] [address] 08 Feb, 2011 [facility] [place] [facility] [address] [id number] [place] [address] 29 Jan, 2011 [facility] [place] [facility] [address] [id number] [place] [address] Jan, [facility] [place] [facility] [address] [id number] [place] [address] Sep, [facility] [place] [facility] [address] [id number] [place] [address] 14 Aug, 2010 [facility] [place] [facility] [address] [id number] [place] [address] July, [facility] [place] [facility] [address] [id number] [place] [address] Jun, [facility] [place] [facility] [address] [id number] [place] [address] 15 May, 2010 [facility] [place] [facility] [address] [id number] [place] [address] Feb, [facility] [place] [facility] [address] [id number], [place] [address] 08 Feb, 2010 [facility] [place] [facility] [address] [id number] [place] [address] Jan, [facility] [place] [facility] [address] [id number] [place] [address] 16 Jan, 2010 [facility] [place] [facility] [address] [id number] [place] [address] 2010 [facility] [place] [facility] [address] [place] [address] 2010 [facility] [address] [address] 10 Jan, 2010 [facility] [address] [address] 04 Jan, 2010 [facility] [address] [place] [address] 16 Oct, 2009 [facility] [address] [address] 11 Aug, 2009 [facility] [id number] [place] [address] Mar, [facility] [address] [address] Jan, [facility] [address] [place] [address] Jan, [facility] [address], [place] [address] Dec, [facility] [address] [place] [address] Dec, [facility] [id number] [place] [address] July, IMMUNIZATIONS No Known Immunizations SOCIAL HISTORY Never Assessed REASON FOR VISIT deferred labs PLAN OF CARE VITAL SIGNS MEDICATIONS No [...]
--- OUTSIDE RECORDS SUMMARY | 2018-10-21 14:40 | XMS REPORT ---
Author Author LETICIA CROCKETT Organization [facility] Address [address] [place] [address] Care Team Providers Care Sign Carpenter Name Role Phone LETICIA CROCKETT Unavailable PROBLEMS Type Condition ICD9-CM Code RQZ60-VP Code Onset Dates Condition Status SNOMED Code Problem Excessive and frequent menstruation with regular cycle N92.0 Active 470786988 Problem Arthritis M19.90 Active 9039364 Problem Irritable bowel syndrome with diarrhea K58.0 Active 32037107 Problem Iron deficiency anemia, unspecified iron deficiency anemia type D50.9 Active 57440873 Problem Right carpal tunnel syndrome G56.01 Active 603682171234534 Problem Routine adult health maintenance Z00.00 Active 337919401 Problem Depression with anxiety F41.8 Active 821608258 Problem Weight loss R63.4 Active 350985879 Problem Dizziness R42 Active 702557130 ALLERGIES Substance Reaction Event Type Date Status Latex Gloves Unknown Drug Allergy July, Active Tylenol Unknown Drug Allergy July, Active Sulfazine hives Drug Allergy July, Active Risperidone wt gain Drug Allergy July, Active Bactrim hives Drug Allergy July, Active SOCIAL HISTORY Never Assessed PLAN OF CARE Activity Details Follow Up prn Reason: VITAL SIGNS Height 72 in 2016-07-17 Weight 226.2 lbs 2016-07-17 Temperature 98.1 degrees Fahrenheit 2016-07-17 Heart Rate 78 bpm 2016-07-17 Respiratory Rate 20 2016-07-17 BMI 30.67 kg/m2 2016-07-17 Blood pressure systolic 128 mmHg 2016-07-17 Blood pressure diastolic 80 mmHg 2016-07-17 MEDICATIONS Medication Instructions Dosage Frequency Start Date End Date Duration Status Doxycycline Hyclate 100 MG Orally every 12 hrs 1 capsule 12h July, July, 14 days Active iron 1 tab July, Active Multivitamin Gummies Womens - Active Contrave 8-90 MG Orally Twice a day 2 tablets 12h 30 Active RESULTS No Results PROCEDURES No Known procedures IMMUNIZATIONS No Known Immunizations MEDICAL (GENERAL) HISTORY Type Description Date Medical History osteoarthritis Medical History hx of iron deficiency anemia Medical History PTSD Medical History depression Medical History Anxiety disorder Medical History mood disorder Medical History hx of blood clot in leg Surgical History surgery - right shoulder Surgical History section x2 Surgical History cyst removal Surgical History vein removal 2010 Hospitalization History childbirth Hospitalization History elevated liver enzymes x6 weeks 1995
--- OUTSIDE RECORDS SUMMARY | 2018-10-21 14:40 | XMS REPORT ---
Author Author BRADY MICHEL [facility] Address [address] [place] [address] Care Team Providers Care Turntable Engineer Name Role Phone BRADY MICHEL Unavailable PROBLEMS Type Condition ICD9-CM Code HWT50-ZP Code Onset Dates Condition Status SNOMED Code Problem Excessive and frequent menstruation with regular cycle N92.0 Active 142340469 Problem Iron deficiency anemia, unspecified iron deficiency anemia type D50.9 Active 69698703 Problem Right carpal tunnel syndrome G56.01 Active 541636764831938 Problem Arthritis M19.90 Active 5981487 Problem Irritable bowel syndrome with diarrhea K58.0 Active 75577376 Problem Weight loss R63.4 Active 914731641 Problem Depression with anxiety F41.8 Active 896521794 ALLERGIES No Information ENCOUNTERS Encounter Location Date Diagnosis [place] [id number] [place] [address] May, Iron deficiency anemia, unspecified iron deficiency anemia type D50.9 [place] [address] [place] [address] May, Iron deficiency anemia, unspecified iron deficiency anemia type D50.9 [place] [id number] [place] [address] May, Transition of care performed with sharing of clinical summary Z91.89 ; Iron deficiency anemia, unspecified iron deficiency anemia type D50.9 ; Irritable bowel syndrome with diarrhea K58.0 ; Weight loss R63.4 ; Right carpal tunnel syndrome G56.01 and Arthritis M19.90 [place] [id number] [place] [address] Oct, Iron deficiency anemia, unspecified iron deficiency anemia type D50.9 [place] [id number] [place] [address] Sep, Irritable bowel syndrome with diarrhea K58.0 and Right carpal tunnel syndrome G56.01 [place] [address] [address] Sep, Routine adult health maintenance Z00.00 ; Iron deficiency anemia, unspecified iron deficiency anemia type D50.9 and Irritable bowel syndrome with diarrhea K58.0 [place] [address] [address] Sep, Routine adult health maintenance Z00.00 ; Irritable bowel syndrome with diarrhea K58.0 ; Right carpal tunnel syndrome G56.01 ; Iron deficiency anemia, unspecified iron deficiency anemia type D50.9 and Weight loss R63.4 [place] [address] [address] Sep, Lateral epicondylitis of elbow M77.10 and Right carpal tunnel syndrome G56.01 [place] [id number] [place] [address] Aug, [facility] [address] [address] July, Tick bite, initial encounter W57.XXXA [place] [address] [address] May, [place] [address] [address] Feb, Right carpal tunnel syndrome G56.01 and Lateral epicondylitis of elbow M77.10 [place] [address] [address] Jan, Dental caries K02.9 [facility] [address] [address] Jan, Transient synovitis, right elbow M67.321 [place] [address] [address] Jan, Transient synovitis, right elbow M67.321 [place] [address] [address] 31 Dec, 2015 Dental examination Z01.20 [place] [address] [address] 11 Dec, 2015 Olecranon bursitis, right elbow M70.21 [place] [address] [address] 13 Nov, 2015 [place] [address] [address] 14 Sep, 2015 Right elbow pain M25.521 ; Olecranon bursitis, right elbow M70.21 and Morbid obesity due to excess calories E66.[address] [address] 07 Aug, 2015 Arthritis M19.90 ; Depression with anxiety F41.8 ; Weight loss R63.4 and Dizziness R42 [address] [address] July, Stress headaches F45.41 and Dizziness R42 [facility] [address] [id number] Jun, Dental caries K02.9 [facility] [address] [address] May, Sinusitis J32.9 and Foot pain, left M79.672 [facility] [id number] [place] [address] Apr, Acute sinusitis J01.90 and Sore throat J02.9 [facility] [address] [id number] 08 Apr, 2015 Dental caries K02.9 [facility] [address] [id number] Feb, Encounter for dental examination Z01.20 [facility] [address] [address] Dec, Routine adult health maintenance Z00.00 and Excessive and frequent menstruation with regular cycle N92.0 [facility] [address] [address] 02 Dec, 2014 Routine adult health maintenance Z00.00 ; Excessive and frequent menstruation with regular cycle N92.0 ; Arthritis M19.90 ; Irritable bowel syndrome with diarrhea K58.0 and Depression with anxiety F41.8 [facility] [address] [place] [address] Oct, [facility] [id number] [place] [address] Oct, Upper respiratory infection, acute 465.9 [facility] [id number] [place] [address] July, Acute upper respiratory infection 465.9 [facility] [address] [place] [address] Jun, [facility] [id number] [place] [address] Jun, [facility] [id number] [place] [address] May, [facility] [id number] [place] [address] May, [facility] [address] [place] [address] Apr, [facility] [id number] [place] [address] Apr, [facility] [address] [address] Apr, [facility] [id number] [place] [address] Apr, [facility] [place] [facility] [address] [id number] [place] [address] Jan, [facility] [place] [facility] [address] [id number] [place] [address] Jan, [facility] [place] [facility] [address] [facility] [id number] [place] [address] Jan, [facility] [place] [facility] [address] [id number] [place] [address] Jan, [facility] [place] [facility] [address] [id number] [place] [address] Jan, [facility] [place] [facility] [address] [id number] [place] [address] Jan, [facility] [place] [facility] [address] [id number] [place] [address] Dec, [facility] [place] [facility] [address] [id number] [place] [address] Dec, [facility] [place] [facility] [address] [id number] [place] [address] Dec, [facility] [place] [facility] [address] [id number] [place] [address] Dec, [facility] [place] [facility] [address] [id number] [address] Nov, [facility] [place] [facility] [address] [id number], [place] [address] Nov, [facility] [place] [facility] [address] [id number] [place] [address] Oct, [facility] [place] [facility] [address] [id number], [place] [address] Oct, [facility] [place] [facility] [address] [facility] [id number] [place] [address] Aug, [facility] [place] [facility] [address] [id number] [place] [address] Aug, [facility] [place] [facility] [address] [id number] [place] [address] Aug, [facility] [place] [facility] [address] [id number] [place] [address] Aug, [facility] [place] [facility] [address] [id number] [place] [address] Feb, [facility] [place] [facility] [address] [id number] [place] [address] Feb, [facility] [place] [facility] [address] [id number] [place] [address] Feb, [facility] [place] [facility] [address] [id number] [place] [address] Feb, [facility] [place] [facility] [address] [id number] [place] [address] Dec, [facility] [place] [facility] [address] [id number] [place] [address] Nov, [facility] [place] [facility] [address] [id number] [place] [address] Oct, [facility] [place] [facility] [address] [id number] [place] [address] Oct, [facility] [place] [facility] [address] [id number] [place] [address] Oct, [facility] [place] [facility] [address] [id number] [place] [address] Sep, [facility] [place] [facility] [address] [id number] [place] [address] Sep, [facility] [place] [facility] [address] [id number] [place] [address] Sep, [facility] [place] [facility] [address] [id number] [place] [address] Sep, [facility] [place] [facility] [address] [id number] [place] [address] Sep, [facility] [address] [id number] [place] [address] Sep, [facility] [address] [id number] [place] [address] Aug, [facility] [address] [id number] [place] [address] Aug, [facility] [address] [id number] [place] [address] July, [facility] [address] [id number] [place] [address] July, [facility] [address] [id number] [place] [address] July, [facility] [address] [id number] [place] [address] Jun, [facility] [address] [id number] [place] [address] Jun, [facility] [address] [id number] [place] [address] Jun, [facility] [address] [id number] [place] [address] May, [facility] [address] [id number] [place] [address] Apr, [facility] [address] [id number] [place] [address] Nov, [facility] [address] [id number] [place] [address] Mar, [facility] [address] [id number] [place] [address] Feb, [facility] [address] [id number], [place] [address] 29 Jan, 2011 [facility] [place] [facility] [address] [id number] [place] [address] 02 Jan, 2011 [facility] [place] [facility] [address] [id number] [place] [address] 13 Sep, 2010 [facility] [place] [facility] [address] [id number] [place] [address] 14 Aug, 2010 [facility] [place] [facility] [address] [id number] [place] [address] July, [facility] [place] [facility] [address] [id number] [place] [address] 12 Jun, 2010 [facility] [place] [facility] [address] [id number] [place] [address] 15 May, 2010 [facility] [place] [facility] [address] [id number] [place] [address] Feb, [facility] [place] [facility] [address] [id number] [place] [address] 08 Feb, 2010 [facility] [place] [facility] [address] [id number] [place] [address] 26 Jan, 2010 [facility] [place] [facility] [address] [id number] [place] [address] 16 Jan, 2010 [facility] [place] [facility] [address] [id number] [place] [address] 2010 [facility] [place] [facility] [address] [id number] [place] [address] 2010 [facility] [place] [facility] [address] [id number] [place] [address] 10 Jan, 2010 [facility] [place] [facility] [address] [id number] [place] [address] 04 Jan, 2010 [facility] [place] [facility] [address] [id number] [place] [address] 16 Oct, 2009 [facility] [place] [facility] [id number] [address] 11 Aug, 2009 [facility] [id number] [address] Mar, [facility] [address] [place] [address] Jan, [facility] [id number] [address] Jan, [facility] [address], [place] [address] Dec, [facility] [address], [place] [address] Dec, [facility] [address] [place] [address] July, IMMUNIZATIONS No Known Immunizations SOCIAL HISTORY Never Assessed REASON FOR VISIT elbow pain (last seen Feb 2016)Consult Brady Michel;Demi RT(R) PLAN OF CARE Activity Details Follow Up prn Reason: VITAL SIGNS Height 72 in 2016-09-28 Blood pressure systolic 118 mmHg 2016-09-28 Blood pressure diastolic 78 mmHg 2016-09-28 MEDICATIONS Unknown Medications RESULTS No Results PROCEDURES No Known [...]
--- OUTSIDE RECORDS SUMMARY | 2018-10-21 14:40 | XMS REPORT ---
Author ARIANNE Sarabia [facility] eClinicalWorks Address Unknown Phone Unavailable Care Team Providers Care Chief Estimator Name Role Phone ARIANNE CARTAGENA CP Unavailable [...] Instructions Start Date End Date Status Dosage [place] [facility] [address]-99 5-325 MG Orally every 6 hrs Jan 17, 2016 Jan 21, 2016 1 tablet as needed Mobic [facility] [address]-46 7.5 MG Orally 2 times a day May 13, 2014 1 tablet Amoxicillin [facility] [address]-37 500 MG Orally Four times a day Jan 17, 2016 Jan 24, 2016 1 capsule Contrave [facility] 67229235987 8-90 MG Orally Twice a day 2 tablets Bentyl [facility] 05701199613 20 MG TAKE ONE TABLET BY MOUTH TWICE DAILY NEEDED (MUST KEEP 10/26/2014 APPOINTMENT FOR REFILL) Procedures Procedure Coding System Code Date INTRAORL-PERIAPICAL 1 FILM 30733 CPT-4 D0220 Jan 17, 2016 INTRAORL-PERIAPICAL EA [...]
--- OUTSIDE RECORDS SUMMARY | 2018-10-21 14:40 | XMS REPORT ---
Author Author JOSE ELIAS MICHEL [facility] Address [address] [place] [address] Care Team Providers Care Network Operations Analyst Name Role Phone JOSE ELIAS MICHEL Unavailable PROBLEMS Type Condition ICD9-CM Code CLE22-GX Code Onset Dates Condition Status SNOMED Code Problem Excessive and frequent menstruation with regular cycle N92.0 Active 555120699 Problem Arthritis M19.90 Active 0258054 Problem Irritable bowel syndrome with diarrhea K58.0 Active 19017017 Problem Iron deficiency anemia, unspecified iron deficiency anemia type D50.9 Active 33963188 Problem Right carpal tunnel syndrome G56.01 Active 511507327190769 Problem Routine adult health maintenance Z00.00 Active 052532989 Problem Depression with anxiety F41.8 Active 451057676 Problem Weight loss R63.4 Active 174128114 Problem Dizziness R42 Active 260689236 ALLERGIES Unknown Allergies SOCIAL HISTORY No smoking Hx information available PLAN OF CARE Activity Details Follow Up prn Reason: VITAL SIGNS Height 72 in 2016-03-16 Blood pressure systolic 126 mmHg 2016-03-16 Blood pressure diastolic 80 mmHg 2016-03-16 MEDICATIONS Unknown Medications RESULTS No Results PROCEDURES Procedure Date Ordered Related Diagnosis Body Site DRAIN/INJECT, JOINT/BURSA Mar 16, 2016 Office Visit, Est Pt., Level 3 Mar 16, 2016 DEPO MEDROL 40 MG/ML Mar 16, 2016 IMMUNIZATIONS No Known Immunizations
--- OUTSIDE RECORDS SUMMARY | 2018-10-21 14:40 | XMS REPORT ---
Author Author SARAH TRAVIS [facility] eClinicalWorks Address Unknown Phone Unavailable Care Team Providers Care Forging Press Setter Up Name Role Phone SARAH TRAVIS CP Unavailable Allergies No Known Allergies Problems Problem Type Condition Code Onset Dates Condition Status Assessment Transient synovitis, right elbow M67.321 Active Problem Dizziness R42 Active Problem Routine adult health maintenance Z00.00 Active Problem Weight loss R63.4 Active Problem Irritable bowel syndrome with diarrhea K58.0 Active Problem Depression with anxiety F41.8 Active Problem Excessive and frequent menstruation with regular cycle N92.0 Active Problem Arthritis M19.90 Active Medications No Known Medications Procedures Procedure Coding System Code Date X-RAY EXAM OF ELBOW CPT-4 08537 Jan 28, 2016 Results No Known Results Summary Purpose eClinicalWorks Submission
--- OUTSIDE RECORDS SUMMARY | 2018-10-21 14:40 | XMS REPORT ---
Author Author MARLY ZIEGLER [facility] eClinicalWorks Address Unknown Phone Unavailable Care Team Providers Care Well Blower Name Role Phone MARLY ZIEGLER CP Unavailable Allergies No Known Allergies Problems Problem Type Condition Code Onset Dates Condition Status Problem Excessive and frequent menstruation with regular cycle N92.0 Active Problem Arthritis M19.90 Active Problem Routine adult health maintenance Z00.00 Active Assessment Routine adult health maintenance Z00.00 Active Assessment Excessive and frequent menstruation with regular cycle N92.0 Active Problem Irritable bowel syndrome with diarrhea K58.0 Active Problem Depression with anxiety F41.8 Active Medications No Known Medications Procedures Procedure Coding System Code Date LAB NOT BILLED [facility] CPT-4 NOBLL Dec 24, 2014 VENIPUNCT, ROUTINE* CPT-4 79485 Dec 24, 2014 Results Name Result Date Reference Range Unit Abnormality Flag ROUTINE VENIPUNCTURE Summary Purpose eClinicalWorks Submission
--- OUTSIDE RECORDS SUMMARY | 2018-10-21 14:40 | XMS REPORT ---
Author Author ARIANNE Sal Organization [facility] Address Unknown Care Team Providers Care Professor Of Musicology Name Role Phone ARIANNE Sal Unavailable PROBLEMS Type Condition ICD9-CM Code TEB65-UA Code Onset Dates Condition Status SNOMED Code Problem Depression with anxiety F41.8 Active 128385938 Problem Arthritis M19.90 Active 0296089 Problem Irritable bowel syndrome with diarrhea K58.0 Active 15756808 Problem Iron deficiency anemia, unspecified iron deficiency anemia type D50.9 Active 19804466 Problem Right carpal tunnel syndrome G56.01 Active 033444399468552 Problem Routine adult health maintenance Z00.00 Active 256181830 Problem Excessive and frequent menstruation with regular cycle N92.0 Active 848827395 Problem Weight loss R63.4 Active 431485865 Problem Dizziness R42 Active 744591640 ALLERGIES Substance Reaction Event Type Date Status Latex Gloves Unknown Drug Allergy Jan, Active Tylenol Unknown Drug Allergy Jan, Active Sulfazine hives Drug Allergy Jan, Active Risperidone wt gain Drug Allergy Jan, Active Bactrim hives Drug Allergy Jan, Active SOCIAL HISTORY No smoking Hx information available PLAN OF CARE Activity Details Follow Up prn Reason:anatoliy/hygiene VITAL SIGNS Height 72 in 2016-02-07 Blood pressure systolic 125 mmHg 2016-02-07 Blood pressure diastolic 80 mmHg 2016-02-07 MEDICATIONS Medication Instructions Dosage Frequency Start Date End Date Duration Status Multivitamin Gummies Womens - Active iron 1 tab July, Active Qqupsmpmeo-YKFC-Ydkgpkqc 50-325-40 MG Orally every 4 hrs 1 capsule as needed 4h July, Active RESULTS No Results PROCEDURES Procedure Date Ordered Related Diagnosis Body Site EXTRAC ERUPTED TOOTH/EXPOSED ROOT Feb 07, 2016 IMMUNIZATIONS No Known Immunizations
--- OUTSIDE RECORDS SUMMARY | 2018-10-21 14:40 | XMS REPORT ---
Author Author VENITA HERZOG eClinicalWorks Address Unknown Phone Unavailable Care Team Providers Care Club Former Name Role Phone VENITA HERZOG CP Unavailable Allergies, Adverse Reactions, Alerts Substance [...] Routine adult health maintenance Z00.00 Active Assessment Encounter for dental examination Z01.20 Active Problem Irritable bowel syndrome with diarrhea K58.0 Active Problem Depression with anxiety F41.8 Active Medications Medication Code System Code Instructions Start Date End Date Status Dosage Benadryl Allergy [facility] [address]-86 25 MG Orally every 6 hrs 1 tablet as needed Bentyl [facility] [address]-69 20 MG May 13, 2014 1 tablet by Oral route 2 times per day PRN Mobic [facility] [address]-96 7.5 MG Orally 2 times a day May 13, 2014 1 tablet iron [place] 0 Oral July 21, 2014 1 tab Paxil [facility] [address]-64 20 MG Orally Once a day Dec 18, 2014 1 tablet in the morning Procedures Procedure Coding System Code Date INTRAORL-PERIAPICAL 1 FILM 18072 CPT-4 D0220 Mar 16, 2015 INTRAORL-PERIAPICAL EA ADD FILM CPT-4 D0230 Mar 16, 2015 COMP ORAL EVALUATION - NEW/EST PT CPT-4 D0150 Mar 16, 2015 PROPHYLAXIS - ADULT CPT-4 D1110 Mar 16, 2015 PANORAMIC FILM SEE ALSO CODE 22028 CPT-4 D0330 Mar 16, 2015 TOPICAL FLUORIDE VARNISH CPT-4 D1206 Mar 16, 2015 INTRAORL-PERIAPICAL EA ADD FILM CPT-4 D0230 Mar 16, 2015 INTRAORL-PERIAPICAL EA ADD FILM CPT-4 D0230 Mar 16, 2015 BITEWINGS - FOUR FILMS CPT-4 D0274 Mar 16, 2015 INTRAORL-PERIAPICAL EA ADD FILM CPT-4 D0230 Mar 16, 2015 Vital Signs Date/Time: Mar 16, 2015 Blood Pressure Diastolic 71 mmHg Blood Pressure Systolic 116 mmHg Results No Known Results Summary Purpose eClinicalWorks Submission
--- OUTSIDE RECORDS SUMMARY | 2018-10-21 14:40 | XMS REPORT ---
Author SARAH Diaz [facility] eClinicalWorks Address Unknown Phone Unavailable Care Team Providers Care Material Control Specialist Name Role Phone SARAH TRAVIS CP Unavailable Allergies, Adverse Reactions, Alerts Substance Reaction Event Type Latex Gloves Info Not Available Drug Allergy Tylenol Info Not Available Drug Allergy Sulfazine hives Drug Allergy Risperidone wt gain Drug Allergy Bactrim hives Drug Allergy Problems Problem Type Condition Code Onset Dates Condition Status Assessment Olecranon bursitis, right elbow M70.21 Active Problem Dizziness R42 Active Problem Routine adult health maintenance Z00.00 Active Problem Weight loss R63.4 Active Problem Irritable bowel syndrome with diarrhea K58.0 Active Problem Depression with anxiety F41.8 Active Problem Excessive and frequent menstruation with regular cycle N92.0 Active Problem Arthritis M19.90 Active Medications Medication Code System Code Instructions Start Date End Date Status Dosage PredniSONE [facility] [address]-47 20 MG Orally Once a day Dec 28, 2015 Jan 07, 2016 one tid x 3, one bid x 3, daily x 3 Multivitamin Gummies Womens [facility] [address] - Orally not defined Bentyl [facility] 46248605520 20 MG TAKE ONE TABLET BY MOUTH TWICE DAILY NEEDED (MUST KEEP 10/26/2014 APPOINTMENT FOR REFILL) Mobic [facility] [address]-31 7.5 MG Orally 2 times a day May 13, 2014 1 tablet Contrave [facility] 69506655982 8-90 MG Orally Twice a day 2 tablets Wqoktxhfir-KBEU-Ofwgypgj [facility] [address]-49 50-325-40 MG Orally every 4 hrs August 04, 2015 1 capsule as needed iron ND 0 Oral July 21, 2014 1 tab Procedures Procedure Coding System Code Date Office Visit, Est Pt., Level 3 CPT-4 78220 Dec 28, 2015 [facility] VISIT ESTABLISHED PATIENT CPT-4 G0467 Dec 28, 2015 Vital Signs Date/Time: Dec 28, 2015 Cardiac Monitoring Heart Rate 80 bpm Weight 239.5 lbs Height 72 in BMI 32.48 Index Blood Pressure Diastolic 78 mmHg Blood Pressure Systolic 116 mmHg Results No Known Results Summary Purpose eClinicalWorks Submission
--- OUTSIDE RECORDS SUMMARY | 2018-10-21 14:41 | XMS REPORT ---
Author Author SARAH Cifuentes Organization [facility] Address [address] [place] [address] Care Team Providers Care Ict Educator Name Role Phone Esau SARAH Unavailable PROBLEMS Type Condition ICD9-CM Code LHH45-RY Code Onset Dates Condition Status SNOMED Code Problem Excessive and frequent menstruation with regular cycle N92.0 Active 344502098 Problem Iron deficiency anemia, unspecified iron deficiency anemia type D50.9 Active 50176696 Problem Right carpal tunnel syndrome G56.01 Active 591253447607207 Problem Arthritis M19.90 Active 1663398 Problem Irritable bowel syndrome with diarrhea K58.0 Active 32270301 Problem Weight loss R63.4 Active 938254941 Problem Depression with anxiety F41.8 Active [id number] ALLERGIES No Information ENCOUNTERS Encounter Location Date Diagnosis [place] [id number] [place] [address] May, Iron deficiency anemia, unspecified iron deficiency anemia type D50.9 [place] [id number] [place] [address] May, Iron deficiency anemia, unspecified iron deficiency anemia type D50.9 [place] [id number] [place] [address] May, Transition of care performed with sharing of clinical summary Z91.89 ; Iron deficiency anemia, unspecified iron deficiency anemia type D50.9 ; Irritable bowel syndrome with diarrhea K58.0 ; Weight loss R63.4 ; Right carpal tunnel syndrome G56.01 and Arthritis M19.90 [place] [id number] [place] [address] Oct, Iron deficiency anemia, unspecified iron deficiency anemia type D50.9 [place] [id number] [place] [address] Sep, Irritable bowel syndrome with diarrhea K58.0 and Right carpal tunnel syndrome G56.01 [place] [id number] [place] [address] Sep, Routine adult health maintenance Z00.00 ; Iron deficiency anemia, unspecified iron deficiency anemia type D50.9 and Irritable bowel syndrome with diarrhea K58.0 [place] [id number] [place] [address] Sep, Routine adult health maintenance Z00.00 ; Irritable bowel syndrome with diarrhea K58.0 ; Right carpal tunnel syndrome G56.01 ; Iron deficiency anemia, unspecified iron deficiency anemia type D50.9 and Weight loss R63.4 [place] [id number] [place] [address] Sep, Lateral epicondylitis of elbow M77.10 and Right carpal tunnel syndrome G56.01 [place] [id number] [place] [address] Aug, [facility] [id number] [place] [address] July, Tick bite, initial encounter W57.XXXA [place] [id number] [place] [address] May, [place] [address] [address] Feb, Right carpal tunnel syndrome G56.01 and Lateral epicondylitis of elbow M77.10 [place] [address] [address] Jan, Dental caries K02.9 [place] [id number] [place] [address] 11 Jan, 2016 Transient synovitis, right elbow M67.321 [place] [address] [address] Jan, Transient synovitis, right elbow M67.321 [place] [address] [address] 31 Dec, 2015 Dental examination Z01.20 [place] [address] [address] 11 Dec, 2015 Olecranon bursitis, right elbow M70.21 [facility] [address] [address] 13 Nov, 2015 [place] [address] [address] 14 Sep, 2015 Right elbow pain M25.521 ; Olecranon bursitis, right elbow M70.21 and Morbid obesity due to excess calories E66.[address] [address] Aug, Arthritis M19.90 ; Depression with anxiety F41.8 ; Weight loss R63.4 and Dizziness R42 [address] [address] July, Stress headaches F45.41 and Dizziness R42 [facility] [address] [id number] Jun, Dental caries K02.9 [place] [address] [address] May, Sinusitis J32.9 and Foot pain, left M79.672 [facility] [address] [address] Apr, Acute sinusitis J01.90 and Sore throat J02.9 [facility] [address] [id number] Apr, Dental caries K02.9 [facility] [address] [id number] Feb, Encounter for dental examination Z01.20 [facility] [address] [address] Dec, Routine adult health maintenance Z00.00 and Excessive and frequent menstruation with regular cycle N92.0 [facility] [id number] [place] [address] Dec, Routine adult health maintenance Z00.00 ; Excessive and frequent menstruation with regular cycle N92.0 ; Arthritis M19.90 ; Irritable bowel syndrome with diarrhea K58.0 and Depression with anxiety F41.8 [facility] [address] [place] [address] Oct, [facility] [id number] [place] [address] Oct, Upper respiratory infection, acute 465.9 [facility] [id number] [place] [address] July, Acute upper respiratory infection 465.9 [facility] [address] [place] [address] Jun, [facility] [id number] [place] [address] Jun, [facility] [address] [address] May, [facility] [id number] [place] [address] May, [facility] [address] [address] Apr, [facility] [id number] [place] [address] Apr, [facility] [address] [address] Apr, [facility] [id number] [place] [address] [place] [address] Apr, [facility] [place] [facility] [address] [id number] [place] [address] Jan, [facility] [place] [facility] [address] [id number] [place] [address] Jan, [facility] [place] [facility] [address] [id number] [place] [address] Jan, [facility] [place] [facility] [address] [id number] [place] [address] Jan, [facility] [place] [facility] [address] [id number] [place] [address] Jan, [facility] [place] [facility] [address] [id number] [place] [address] Jan, [facility] [place] [facility] [address] [id number] [place] [address] Dec, [facility] [place] [facility] [address] [id number] [place] [address] Dec, [facility] [place] [facility] [address] [id number] [place] [address] Dec, [facility] [place] [facility] [address] [id number] [place] [address] Dec, [facility] [place] [facility] [address] [id number] [place] [address] Nov, [facility] [place] [facility] [address] [id number] [address] Nov, [facility] [place] [facility] [address] [id number] [place] [address] Oct, [facility] [place] [facility] [address] [id number] [place] [address] Oct, [facility] [place] [facility] [address] [id number] [place] [address] Aug, [facility] [place] [facility] [address] [id number] [place] [address] Aug, [facility] [place] [facility] [address] [id number] [place] [address] Aug, [facility] [place] [facility] [address] [id number] [place] [address] Aug, [facility] [place] [facility] [address] [id number] [place] [address] Feb, [facility] [place] [facility] [address] [id number] [place] [address] Feb, [facility] [place] [facility] [address] [id number] [place] [address] Feb, [facility] [place] [facility] [address] [id number] [place] [address] Feb, [facility] [place] [facility] [address] [id number] [place] [address] Dec, [facility] [place] [facility] [address] [id number] [place] [address] Nov, [facility] [place] [facility] [address] [id number] [place] [address] Oct, [facility] [place] [facility] [address] [id number] [place] [address] Oct, [facility] [place] [facility] [address] [id number] [place] [address] Oct, [facility] [place] [facility] [address] [id number] [place] [address] Sep, [facility] [place] [facility] [address] [id number] [place] [address] Sep, [facility] [place] [facility] [address] [id number] [place] [address] Sep, [facility] [place] [facility] [address] [id number] [place] [address] Sep, [facility] [address] [id number] [place] [address] Sep, [facility] [address] [id number] [place] [address] Sep, [facility] [address] [id number] [place] [address] Aug, [facility] [place] [facility] [address] [id number] [place] [address] Aug, [facility] [address] [id number] [place] [address] July, [facility] [address] [id number] [place] [address] July, [facility] [address] [id number] [place] [address] July, [facility] [address] [id number] [place] [address] Jun, [facility] [address] [id number] [place] [address] Jun, [facility] [place] [facility] [address] [id number] [place] [address] Jun, [facility] [address] [id number] [place] [address] May, [facility] [place] [facility] [address] [id number] [place] [address] Apr, [facility] [place] [facility] [address] [id number] [place] [address] Nov, [facility] [place] [facility] [address] [id number] [place] [address] Mar, [facility] [place] [facility] [address] [id number] [place] [address] Feb, [facility] [place] [facility] [address] [id number] [place] [address] 29 Jan, 2011 [facility] [address] [id number] [place] [address] 02 Jan, 2011 [facility] [address] [id number] [place] [address] 13 Sep, 2010 [facility] [address] [id number] [place] [address] 14 Aug, 2010 [facility] [address] [id number] [place] [address] July, [facility] [address] [id number] [place] [address] 12 Jun, 2010 [facility] [address] [id number] [place] [address] 15 May, 2010 [facility] [address] [id number] [place] [address] 10 Feb, 2010 [facility] [address] [id number] [place] [address] 08 Feb, 2010 [facility] [address] [id number] [place] [address] 26 Jan, 2010 [facility] [address] [id number] [place] [address] 16 Jan, 2010 [facility] [place] [facility] [address] [id number] [place] [address] 2010 [facility] [address] [id number] [place] [address] 2010 [facility] [place] [facility] [address] [id number] [place] [address] 10 Jan, 2010 [facility] [place] [facility] [address] [id number] [place] [address] 04 Jan, 2010 [facility] [address] [id number] [place] [address] Oct, [facility] [id number] [address] 11 Aug, 2009 [facility] [address], [place] [address] Mar, [facility] [id number] [address] Jan, [facility] [address], [place] [address] Jan, [facility] [address], [place] [address] Dec, [facility] [address], [place] [address] Dec, [facility] [id number] [address] July, IMMUNIZATIONS No Known Immunizations SOCIAL HISTORY Never Assessed REASON FOR VISIT per lab results PLAN OF CARE VITAL SIGNS MEDICATIONS Unknown [...]
--- OUTSIDE RECORDS SUMMARY | 2018-10-21 14:41 | XMS REPORT ---
Author Author SARAH Cifuentes Organization [facility] Address [address] [place] [address] Care Team Providers Care Gift Shop Assistant Name Role Phone Esau SARAH Unavailable PROBLEMS Type Condition ICD9-CM Code [id number] Code Onset Dates Condition Status SNOMED Code Problem Excessive and frequent menstruation with regular cycle N92.0 Active 951222914 Problem Iron deficiency anemia, unspecified iron deficiency anemia type D50.9 Active 49291217 Problem Right carpal tunnel syndrome G56.01 Active 593026080925841 Problem Arthritis M19.90 Active 9747286 Problem Irritable bowel syndrome with diarrhea K58.0 Active 39577563 Problem Weight loss R63.4 Active 909659276 Problem Depression with anxiety F41.8 Active [id number] ALLERGIES No Information ENCOUNTERS Encounter Location Date Diagnosis [place] [id number] [place] [address] May, Iron deficiency anemia, unspecified iron deficiency anemia type D50.9 [place] [id number] [place] [address] May, Iron deficiency anemia, unspecified iron deficiency anemia type D50.9 [place] [id number] [place] [address] May, Transition of care performed with sharing of clinical summary Z91.89 ; Iron deficiency anemia, unspecified iron deficiency anemia type D50.9 ; Irritable bowel syndrome with diarrhea K58.0 ; Weight loss R63.4 ; Right carpal tunnel syndrome G56.01 and Arthritis M19.90 [place] [id number] [place] [address] Oct, Iron deficiency anemia, unspecified iron deficiency anemia type D50.9 [place] [id number] [place] [address] Sep, Irritable bowel syndrome with diarrhea K58.0 and Right carpal tunnel syndrome G56.01 [place] [id number] [place] [address] Sep, Routine adult health maintenance Z00.00 ; Iron deficiency anemia, unspecified iron deficiency anemia type D50.9 and Irritable bowel syndrome with diarrhea K58.0 [place] [id number] [place] [address] Sep, Routine adult health maintenance Z00.00 ; Irritable bowel syndrome with diarrhea K58.0 ; Right carpal tunnel syndrome G56.01 ; Iron deficiency anemia, unspecified iron deficiency anemia type D50.9 and Weight loss R63.4 [place] [id number] [place] [address] Sep, Lateral epicondylitis of elbow M77.10 and Right carpal tunnel syndrome G56.01 [place] [id number] [place] [address] Aug, [facility] [id number] [place] [address] July, Tick bite, initial encounter W57.XXXA [place] [id number] [place] [address] May, [place] [address] [address] Feb, Right carpal tunnel syndrome G56.01 and Lateral epicondylitis of elbow M77.10 [place] [address] [address] Jan, Dental caries K02.9 [place] [id number] [place] [address] 11 Jan, 2016 Transient synovitis, right elbow M67.321 [place] [address] [address] Jan, Transient synovitis, right elbow M67.321 [place] [address] [address] 31 Dec, 2015 Dental examination Z01.20 [place] [address] [address] 11 Dec, 2015 Olecranon bursitis, right elbow M70.21 [facility] [address] [address] 13 Nov, 2015 [place] [address] [address] 14 Sep, 2015 Right elbow pain M25.521 ; Olecranon bursitis, right elbow M70.21 and Morbid obesity due to excess calories E66.[address] [address] Aug, Arthritis M19.90 ; Depression with anxiety F41.8 ; Weight loss R63.4 and Dizziness R42 [address] [address] July, Stress headaches F45.41 and Dizziness R42 [facility] [address] [id number] Jun, Dental caries K02.9 [place] [address] [address] May, Sinusitis J32.9 and Foot pain, left M79.672 [facility] [address] [address] Apr, Acute sinusitis J01.90 and Sore throat J02.9 [facility] [address] [id number] Apr, Dental caries K02.9 [facility] [address] [id number] Feb, Encounter for dental examination Z01.20 [facility] [address] [address] Dec, Routine adult health maintenance Z00.00 and Excessive and frequent menstruation with regular cycle N92.0 [facility] [id number] [place] [address] Dec, Routine adult health maintenance Z00.00 ; Excessive and frequent menstruation with regular cycle N92.0 ; Arthritis M19.90 ; Irritable bowel syndrome with diarrhea K58.0 and Depression with anxiety F41.8 [facility] [id number] [place] [address] Oct, [facility] [id number] [place] [address] Oct, Upper respiratory infection, acute 465.9 [facility] [id number] [place] [address] July, Acute upper respiratory infection 465.9 [facility] [id number] [place] [address] Jun, [facility] [id number] [place] [address] Jun, [facility] [address] [address] May, [facility] [id number] [place] [address] May, [facility] [address] [address] Apr, [facility] [id number] [place] [address] Apr, [facility] [address] [address] Apr, [facility] [id number] [place] [address] [place] [address] Apr, [facility] [place] [facility] [address] [id number] [place] [address] Jan, [facility] [place] [facility] [address] [id number] [place] [address] Jan, [facility] [place] [facility] [address] [id number] [place] [address] Jan, [facility] [place] [facility] [address] [id number] [place] [address] Jan, [facility] [place] [facility] [address] [id number] [place] [address] Jan, [facility] [place] [facility] [address] [id number] [place] [address] Jan, [facility] [place] [facility] [address] [id number] [place] [address] Dec, [facility] [place] [facility] [address] [id number] [place] [address] Dec, [facility] [place] [facility] [address] [id number] [place] [address] Dec, [facility] [place] [facility] [address] [id number] [place] [address] Dec, [facility] [place] [facility] [address] [id number] [place] [address] Nov, [facility] [place] [facility] [address] [id number] [address] Nov, [facility] [place] [facility] [address] [id number] [place] [address] Oct, [facility] [place] [facility] [address] [id number] [place] [address] Oct, [facility] [place] [facility] [address] [id number] [place] [address] Aug, [facility] [place] [facility] [address] [id number] [place] [address] Aug, [facility] [place] [facility] [address] [id number] [place] [address] Aug, [facility] [place] [facility] [address] [id number] [place] [address] Aug, [facility] [place] [facility] [address] [id number] [place] [address] Feb, [facility] [place] [facility] [address] [id number] [place] [address] Feb, [facility] [place] [facility] [address] [id number] [place] [address] Feb, [facility] [place] [facility] [address] [id number] [place] [address] Feb, [facility] [place] [facility] [address] [id number] [place] [address] Dec, [facility] [place] [facility] [address] [id number] [place] [address] Nov, [facility] [place] [facility] [address] [id number] [place] [address] Oct, [facility] [place] [facility] [address] [id number] [place] [address] Oct, [facility] [place] [facility] [address] [id number] [place] [address] Oct, [facility] [place] [facility] [address] [id number] [place] [address] Sep, [facility] [place] [facility] [address] [id number] [place] [address] Sep, [facility] [place] [facility] [address] [id number] [place] [address] Sep, [facility] [place] [facility] [address] [id number] [place] [address] Sep, [facility] [address] [id number] [place] [address] Sep, [facility] [address] [id number] [place] [address] Sep, [facility] [address] [id number] [place] [address] Aug, [facility] [place] [facility] [address] [id number] [place] [address] Aug, [facility] [address] [id number] [place] [address] July, [facility] [address] [id number] [place] [address] July, [facility] [address] [id number] [place] [address] July, [facility] [address] [id number] [place] [address] Jun, [facility] [address] [id number] [place] [address] Jun, [facility] [place] [facility] [address] [id number] [place] [address] Jun, [facility] [address] [id number] [place] [address] May, [facility] [place] [facility] [address] [id number] [place] [address] Apr, [facility] [place] [facility] [address] [id number] [place] [address] Nov, [facility] [place] [facility] [address] [id number] [place] [address] Mar, [facility] [place] [facility] [address] [id number] [place] [address] Feb, [facility] [place] [facility] [address] [id number] [place] [address] 29 Jan, 2011 [facility] [address] [id number] [place] [address] 02 Jan, 2011 [facility] [address] [id number] [place] [address] 13 Sep, 2010 [facility] [address] [id number] [place] [address] 14 Aug, 2010 [facility] [address] [id number] [place] [address] July, [facility] [address] [id number] [place] [address] 12 Jun, 2010 [facility] [address] [id number] [place] [address] 15 May, 2010 [facility] [address] [id number] [place] [address] 10 Feb, 2010 [facility] [address] [id number] [place] [address] 08 Feb, 2010 [facility] [address] [id number] [place] [address] 26 Jan, 2010 [facility] [address] [id number] [place] [address] 16 Jan, 2010 [facility] [place] [facility] [address] [id number] [place] [address] 2010 [facility] [address] [id number] [place] [address] 2010 [facility] [place] [facility] [address] [id number] [place] [address] 10 Jan, 2010 [facility] [place] [facility] [address] [id number] [place] [address] 04 Jan, 2010 [facility] [address] [id number] [place] [address] 16 Oct, 2009 [facility] [id number] [address] Aug, [facility] [id number] [address] Mar, [facility] [id number] [address] Jan, [facility] [id number] [address] Jan, [facility] [id number] [address] Dec, [facility] [id number] [address] Dec, [facility] [id number] [address] July, IMMUNIZATIONS No Known Immunizations SOCIAL HISTORY Never Assessed REASON FOR VISIT Refill request PLAN OF CARE VITAL SIGNS MEDICATIONS Medication [...]
--- OUTSIDE RECORDS SUMMARY | 2018-10-21 14:41 | XMS REPORT ---
Author Author SARAH Cifuentes Organization [facility] Address [address] [place] [address] Care Team Providers Care Yard Demurrage Clerk Name Role Phone Esau SARAH Unavailable PROBLEMS Type Condition ICD9-CM Code QFF29-YY Code Onset Dates Condition Status SNOMED Code Problem Excessive and frequent menstruation with regular cycle N92.0 Active 252018788 Problem Iron deficiency anemia, unspecified iron deficiency anemia type D50.9 Active 01557300 Problem Right carpal tunnel syndrome G56.01 Active 924182173586836 Problem Arthritis M19.90 Active 5019474 Problem Irritable bowel syndrome with diarrhea K58.0 Active 70527175 Problem Weight loss R63.4 Active 945854838 Problem Depression with anxiety F41.8 Active 082674022 ALLERGIES No Information ENCOUNTERS Encounter Location Date Diagnosis [place] [id number] [place] [address] May, Iron deficiency anemia, unspecified iron deficiency anemia type D50.9 [place] [address] [place] [address] May, Iron deficiency anemia, unspecified iron deficiency anemia type D50.9 [place] [id number] [place] [address] May, Transition of care performed with sharing of clinical summary Z91.89 ; Iron deficiency anemia, unspecified iron deficiency anemia type D50.9 ; Irritable bowel syndrome with diarrhea K58.0 ; Weight loss R63.4 ; Right carpal tunnel syndrome G56.01 and Arthritis M19.90 [place] [id number] [place] [address] Oct, Iron deficiency anemia, unspecified iron deficiency anemia type D50.9 [place] [id number] [place] [address] Sep, Irritable bowel syndrome with diarrhea K58.0 and Right carpal tunnel syndrome G56.01 [place] [id number] [place] [address] Sep, Routine adult health maintenance Z00.00 ; Iron deficiency anemia, unspecified iron deficiency anemia type D50.9 and Irritable bowel syndrome with diarrhea K58.0 [place] [id number] [place] [address] Sep, Routine adult health maintenance Z00.00 ; Irritable bowel syndrome with diarrhea K58.0 ; Right carpal tunnel syndrome G56.01 ; Iron deficiency anemia, unspecified iron deficiency anemia type D50.9 and Weight loss R63.4 [place] [id number] [place] [address] Sep, Lateral epicondylitis of elbow M77.10 and Right carpal tunnel syndrome G56.01 [place] [id number] [place] [address] Aug, [facility] [id number] [place] [address] July, Tick bite, initial encounter W57.XXXA [place] [id number] [place] [address] May, [place] [address] [address] Feb, Right carpal tunnel syndrome G56.01 and Lateral epicondylitis of elbow M77.10 [place] [address] [address] Jan, Dental caries K02.9 [place] [id number] [place] [address] 11 Jan, 2016 Transient synovitis, right elbow M67.321 [place] [address] [address] Jan, Transient synovitis, right elbow M67.321 [place] [address] [address] 31 Dec, 2015 Dental examination Z01.20 [place] [address] [address] 11 Dec, 2015 Olecranon bursitis, right elbow M70.21 [facility] [address] [address] 13 Nov, 2015 [place] [address] [address] 14 Sep, 2015 Right elbow pain M25.521 ; Olecranon bursitis, right elbow M70.21 and Morbid obesity due to excess calories E66.[address] [address] Aug, Arthritis M19.90 ; Depression with anxiety F41.8 ; Weight loss R63.4 and Dizziness R42 [address] [address] July, Stress headaches F45.41 and Dizziness R42 [facility] [address] [id number] Jun, Dental caries K02.9 [place] [address] [address] May, Sinusitis J32.9 and Foot pain, left M79.672 [facility] [address] [address] Apr, Acute sinusitis J01.90 and Sore throat J02.9 [facility] [address] [id number] Apr, Dental caries K02.9 [facility] [address] [id number] Feb, Encounter for dental examination Z01.20 [facility] [address] [address] Dec, Routine adult health maintenance Z00.00 and Excessive and frequent menstruation with regular cycle N92.0 [facility] [address] [place] [address] Dec, Routine adult health maintenance Z00.00 ; Excessive and frequent menstruation with regular cycle N92.0 ; Arthritis M19.90 ; Irritable bowel syndrome with diarrhea K58.0 and Depression with anxiety F41.8 [facility] [address] [place] [address] Oct, [facility] [id number] [place] [address] Oct, Upper respiratory infection, acute 465.9 [facility] [id number] [place] [address] July, Acute upper respiratory infection 465.9 [facility] [address] [place] [address] Jun, [facility] [id number] [place] [address] Jun, [facility] [address] [address] May, [facility] [id number] [place] [address] May, [facility] [address] [address] Apr, [facility] [id number] [place] [address] Apr, [facility] [address] [address] Apr, [facility] [id number] [place] [address] [place] [address] Apr, [facility] [place] [facility] [address] [id number] [place] [address] Jan, [facility] [place] [facility] [address] [id number] [place] [address] Jan, [facility] [place] [facility] [address] [id number] [place] [address] Jan, [facility] [place] [facility] [address] [id number] [place] [address] Jan, [facility] [place] [facility] [address] [id number] [place] [address] Jan, [facility] [place] [facility] [address] [id number] [place] [address] Jan, [facility] [place] [facility] [address] [id number] [place] [address] Dec, [facility] [place] [facility] [address] [id number] [place] [address] Dec, [facility] [place] [facility] [address] [id number] [place] [address] Dec, [facility] [place] [facility] [address] [id number] [place] [address] Dec, [facility] [place] [facility] [address] [id number] [place] [address] Nov, [facility] [place] [facility] [address] [id number] [address] Nov, [facility] [place] [facility] [address] [id number] [place] [address] Oct, [facility] [place] [facility] [address] [id number] [place] [address] Oct, [facility] [place] [facility] [address] [id number] [place] [address] Aug, [facility] [place] [facility] [address] [id number] [place] [address] Aug, [facility] [place] [facility] [address] [id number] [place] [address] Aug, [facility] [place] [facility] [address] [id number] [place] [address] Aug, [facility] [place] [facility] [address] [id number] [place] [address] Feb, [facility] [place] [facility] [address] [id number] [place] [address] Feb, [facility] [place] [facility] [address] [id number] [place] [address] Feb, [facility] [place] [facility] [address] [id number] [place] [address] Feb, [facility] [place] [facility] [address] [id number] [place] [address] Dec, [facility] [place] [facility] [address] [id number] [place] [address] Nov, [facility] [place] [facility] [address] [id number] [place] [address] Oct, [facility] [place] [facility] [address] [id number] [place] [address] Oct, [facility] [place] [facility] [address] [id number] [place] [address] Oct, [facility] [place] [facility] [address] [id number] [place] [address] Sep, [facility] [place] [facility] [address] [id number] [place] [address] Sep, [facility] [place] [facility] [address] [id number] [place] [address] Sep, [facility] [place] [facility] [address] [id number] [place] [address] Sep, [facility] [address] [id number] [place] [address] Sep, [facility] [address] [id number] [place] [address] Sep, [facility] [address] [id number] [place] [address] Aug, [facility] [place] [facility] [address] [id number] [place] [address] Aug, [facility] [address] [id number] [place] [address] July, [facility] [address] [id number] [place] [address] July, [facility] [address] [id number] [place] [address] July, [facility] [address] [id number] [place] [address] Jun, [facility] [address] [id number] [place] [address] Jun, [facility] [place] [facility] [address] [id number] [place] [address] Jun, [facility] [address] [id number] [place] [address] May, [facility] [place] [facility] [address] [id number] [place] [address] Apr, [facility] [place] [facility] [address] [id number] [place] [address] Nov, [facility] [place] [facility] [address] [id number] [place] [address] Mar, [facility] [place] [facility] [address] [id number] [place] [address] Feb, [facility] [place] [facility] [address] [id number] [place] [address] 29 Jan, 2011 [facility] [address] [id number] [place] [address] 02 Jan, 2011 [facility] [address] [id number] [place] [address] 13 Sep, 2010 [facility] [address] [id number] [place] [address] 14 Aug, 2010 [facility] [address] [id number] [place] [address] July, [facility] [address] [id number] [place] [address] 12 Jun, 2010 [facility] [address] [id number] [place] [address] 15 May, 2010 [facility] [address] [id number] [place] [address] 10 Feb, 2010 [facility] [address] [id number] [place] [address] 08 Feb, 2010 [facility] [address] [id number] [place] [address] 26 Jan, 2010 [facility] [address] [id number] [place] [address] 16 Jan, 2010 [facility] [place] [facility] [address] [id number] [place] [address] 2010 [facility] [address] [id number] [place] [address] 2010 [facility] [place] [facility] [address] [id number] [place] [address] 10 Jan, 2010 [facility] [place] [facility] [address] [id number] [place] [address] 04 Jan, 2010 [facility] [address] [id number] [place] [address] Oct, [facility] [address] [facility] [id number] [address] 11 Aug, 2009 [facility] [id number] [address] Mar, [facility] [id number] [address] Jan, [facility] [address] [place] [address] Jan, [facility] [id number] [address] Dec, [facility] [address], [place] [address] Dec, [facility] [id number] [address] July, IMMUNIZATIONS No Known Immunizations SOCIAL HISTORY Never Assessed REASON FOR VISIT Mobic and Bentyl PLAN OF CARE VITAL SIGNS MEDICATIONS Medication Instructions Dosage Frequency Start Date End Date Duration Status Bentyl 20 mg Orally Four times a day 1 tablet 6h Active Mobic 7.5 MG Orally 2 times a day 1 tablet 12h 25 Apr, 2014 Active RESULTS No Results PROCEDURES No Known [...]
--- OUTSIDE RECORDS SUMMARY | 2018-10-21 14:41 | XMS REPORT ---
Author Author SARAH TRAVIS [facility] Address [address] [place] [address] Care Team Providers Care Laundry Bag Punch Operator Name Role Phone SARAH TRAVIS Unavailable PROBLEMS Type Condition ICD9-CM Code BBO99-EX Code Onset Dates Condition Status SNOMED Code Problem Depression with anxiety F41.8 Active 551020962 Problem Weight loss R63.4 Active 411254674 Problem Dizziness R42 Active 886770371 Problem Arthritis M19.90 Active 1851268 Problem Irritable bowel syndrome with diarrhea K58.0 Active 08730921 Problem Routine adult health maintenance Z00.00 Active 396696364 Problem Excessive and frequent menstruation with regular cycle N92.0 Active 195328616 ALLERGIES Unknown Allergies SOCIAL HISTORY No smoking Hx information available PLAN OF CARE VITAL SIGNS MEDICATIONS Medication Instructions Dosage Frequency Start Date End Date Duration Status Contrave 8-90 MG Orally Twice a day 2 tablets 12h 30 Active RESULTS No Results PROCEDURES No Known procedures IMMUNIZATIONS No Known Immunizations
--- OUTSIDE RECORDS SUMMARY | 2018-10-21 14:41 | XMS REPORT ---
Author Author JOSE ELIAS MICHEL [facility] [employer] Address Unknown Phone Unavailable Care Team Providers Care Business Education Professor Name Role Phone JOSE ELIAS MICHEL CP Unavailable Allergies No Known Allergies Problems [...] Medications Procedures Procedure Coding System Code Date Office Visit, Est Pt., Level 3 CPT-4 69891 Jan 20, 2016 DEPO MEDROL 40 MG/ML CPT-4 J1030 Jan 20, 2016 DRAIN/INJECT, JOINT/BURSA CPT-4 60751 Jan 20, 2016 Vital Signs Date/Time: Jan 20, 2016 Blood Pressure Diastolic 72 mmHg Blood Pressure Systolic 118 mmHg Height 72 in Results Name Result Date Reference Range Unit Abnormality Flag JOINT INJECTION-SMALL JOINT Summary Purpose [employer] Submission
--- OUTSIDE RECORDS SUMMARY | 2018-10-21 14:43 | XMS REPORT | Continuity of Care Document ---
Author Organization Unknown Address Unknown Phone Unavailable Allergies Active Description Code Type Severity Reaction Onset Reported/Identified Relationship to Patient Clinical Status Yes Sulfazine Drug Allergy N/A N/A 05/23/2008 Yes Tylenol Drug Allergy N/A N/A 05/23/2008 Yes Sulfazine Drug Allergy 05/23/2008 Yes Tylenol Drug Allergy 05/23/2008 Yes Bactrim Drug Allergy N/A N/A 08/01/2012 Yes risperidone 0.5 mg tablet Drug Allergy N/A N/A 03/14/2013 Medications There is no data. Problems Date Dx Coded Attending Type Code Diagnosis Diagnosed By 10/09/2007 300.00 anxiety 10/09/2007 311 MO DEPRESSIVE DISORDER NOS 10/09/2007 300.00 anxiety 10/09/2007 311 MO DEPRESSIVE DISORDER NOS 10/09/2007 300.00 anxiety 10/09/2007 311 MO DEPRESSIVE DISORDER NOS 10/09/2007 300.00 anxiety 10/09/2007 311 MO DEPRESSIVE DISORDER NOS 10/09/2007 300.00 anxiety 10/09/2007 311 MO DEPRESSIVE DISORDER NOS 10/09/2007 300.00 anxiety 10/09/2007 311 MO DEPRESSIVE DISORDER NOS 10/09/2007 300.00 anxiety 10/09/2007 311 MO DEPRESSIVE DISORDER NOS 10/09/2007 300.00 anxiety 10/09/2007 311 MO DEPRESSIVE DISORDER NOS 10/09/2007 300.00 anxiety 10/09/2007 311 MO DEPRESSIVE DISORDER NOS 10/09/2007 300.00 anxiety 10/09/2007 311 MO DEPRESSIVE DISORDER NOS 10/09/2007 300.00 anxiety 10/09/2007 311 MO DEPRESSIVE DISORDER NOS 10/09/2007 PHYLLIS MARTINEZ DO 300.00 anxiety 10/09/2007 PHYLLIS MARTINEZ DO 311 MO DEPRESSIVE DISORDER NOS 10/09/2007 MATEO VILELGAS APRN 300.00 anxiety 10/09/2007 MATEO VILLEGAS APRN R 311 MO DEPRESSIVE DISORDER NOS 10/09/2007 MATEO VILLEGAS APRN 300.00 anxiety 10/09/2007 NELLY MILLING OPERATOR, MATEO R 311 MO DEPRESSIVE DISORDER NOS 10/09/2007 NELLY BERGN, MATEO R 300.00 anxiety 10/09/2007 NELLY URRUTIA MATEO R 311 MO DEPRESSIVE DISORDER NOS 10/09/2007 NELLY BERGN, MATEO R 300.00 anxiety 10/09/2007 NELLY BERGN, MATEO R 311 MO DEPRESSIVE DISORDER NOS 10/09/2007 NELLY BERGN, MATEO R 300.00 anxiety 10/09/2007 NELLY URRUTIA MATEO R 311 MO DEPRESSIVE DISORDER NOS 10/11/2007 729.5 PAIN IN LIMB 10/11/2007 729.5 PAIN IN LIMB 10/11/2007 729.5 PAIN IN LIMB 10/11/2007 729.5 PAIN IN LIMB 10/11/2007 729.5 PAIN IN LIMB 10/11/2007 729.5 PAIN IN LIMB 10/11/2007 729.5 PAIN IN LIMB 10/11/2007 729.5 PAIN IN LIMB 10/11/2007 729.5 PAIN IN LIMB 10/11/2007 729.5 PAIN IN LIMB 10/11/2007 729.5 PAIN IN LIMB 10/11/2007 PHYLLIS MARTINEZ DO 729.5 PAIN IN LIMB 10/11/2007 NELLY URRUTIA, MATEO R 729.5 PAIN IN LIMB 10/11/2007 NELLY URRUTIA MATEO R 729.5 PAIN IN LIMB 10/11/2007 NELLY URRUTIA, MATEO R 729.5 PAIN IN LIMB 10/11/2007 NELLY URRUTIA MATEO R 729.5 PAIN IN LIMB 10/11/2007 NELLY URRUTIA MATEO R 729.5 PAIN IN LIMB 10/30/2007 724.5 BACKACHE UNSPECIFIED 10/30/2007 724.5 BACKACHE UNSPECIFIED 10/30/2007 724.5 BACKACHE UNSPECIFIED 10/30/2007 724.5 BACKACHE UNSPECIFIED 10/30/2007 724.5 BACKACHE UNSPECIFIED 10/30/2007 724.5 BACKACHE UNSPECIFIED 10/30/2007 724.5 BACKACHE UNSPECIFIED 10/30/2007 724.5 BACKACHE UNSPECIFIED 10/30/2007 724.5 BACKACHE UNSPECIFIED 10/30/2007 724.5 BACKACHE UNSPECIFIED 10/30/2007 724.5 BACKACHE UNSPECIFIED 10/30/2007 PHYLLIS MARTINEZ DO F 724.5 BACKACHE UNSPECIFIED 10/30/2007 NELLY MILLING OPERATOR, MATEO R 724.5 BACKACHE UNSPECIFIED 10/30/2007 NELLY MILLING OPERATOR, MATEO R 724.5 BACKACHE UNSPECIFIED 10/30/2007 NELLY MILLING OPERATOR, MATEO R 724.5 BACKACHE UNSPECIFIED 10/30/2007 NELLY BERGN, MATEO R 724.5 BACKACHE UNSPECIFIED 10/30/2007 NELLY BERGN, MATEO R 724.5 BACKACHE UNSPECIFIED 10/31/2007 783.1 WEIGHT GAIN ABNORMAL 10/31/2007 783.1 WEIGHT GAIN ABNORMAL 10/31/2007 783.1 WEIGHT GAIN ABNORMAL 10/31/2007 783.1 WEIGHT GAIN ABNORMAL 10/31/2007 783.1 WEIGHT GAIN ABNORMAL 10/31/2007 783.1 WEIGHT GAIN ABNORMAL 10/31/2007 783.1 WEIGHT GAIN ABNORMAL 10/31/2007 783.1 WEIGHT GAIN ABNORMAL 10/31/2007 783.1 WEIGHT GAIN ABNORMAL 10/31/2007 783.1 WEIGHT GAIN ABNORMAL 10/31/2007 783.1 WEIGHT GAIN ABNORMAL 10/31/2007 PHYLLIS MARTINEZ DO F 783.1 WEIGHT GAIN ABNORMAL 10/31/2007 NELLY URRUTIA, MATEO R 783.1 WEIGHT GAIN ABNORMAL 10/31/2007 NELLY URRUTIA, MATEO R 783.1 WEIGHT GAIN ABNORMAL 10/31/2007 NELLY URRUTIA, MATEO R 783.1 WEIGHT GAIN ABNORMAL 10/31/2007 NELLY URRUTIA, MATEO R 783.1 WEIGHT GAIN ABNORMAL 10/31/2007 NELLY URRUTIA, MATEO R 783.1 WEIGHT GAIN ABNORMAL 11/13/2007 280.9 ANEMIA IRON DEFICIENCY 11/13/2007 280.9 ANEMIA IRON DEFICIENCY 11/13/2007 280.9 ANEMIA IRON DEFICIENCY 11/13/2007 280.9 ANEMIA IRON DEFICIENCY 11/13/2007 280.9 ANEMIA IRON DEFICIENCY 11/13/2007 280.9 ANEMIA IRON DEFICIENCY 11/13/2007 280.9 ANEMIA IRON DEFICIENCY 11/13/2007 280.9 ANEMIA IRON DEFICIENCY 11/13/2007 280.9 ANEMIA IRON DEFICIENCY 11/13/2007 280.9 ANEMIA IRON DEFICIENCY 11/13/2007 280.9 ANEMIA IRON DEFICIENCY 11/13/2007 PHYLLIS MARTINEZ DO F 280.9 ANEMIA IRON DEFICIENCY 11/13/2007 NELLY MILLING OPERATOR, MATEO R 280.9 ANEMIA IRON DEFICIENCY 11/13/2007 NELLY MILLING OPERATOR, MATEO R 280.9 ANEMIA IRON DEFICIENCY 11/13/2007 NELLY MILLING OPERATOR, MATEO R 280.9 ANEMIA IRON DEFICIENCY 11/13/2007 NELLY MILLING OPERATOR, MATEO R 280.9 ANEMIA IRON DEFICIENCY 11/13/2007 NELLY MILLING OPERATOR, MATEO R 280.9 ANEMIA IRON DEFICIENCY 11/25/2007 285.9 ANEMIA UNSPECIFIED 11/25/2007 285.9 ANEMIA UNSPECIFIED 11/25/2007 285.9 ANEMIA UNSPECIFIED 11/25/2007 285.9 ANEMIA UNSPECIFIED 11/25/2007 285.9 ANEMIA UNSPECIFIED 11/25/2007 285.9 ANEMIA UNSPECIFIED 11/25/2007 285.9 ANEMIA UNSPECIFIED 11/25/2007 285.9 ANEMIA UNSPECIFIED 11/25/2007 285.9 ANEMIA UNSPECIFIED 11/25/2007 285.9 ANEMIA UNSPECIFIED 11/25/2007 285.9 ANEMIA UNSPECIFIED 11/25/2007 PHYLLIS MARTINEZ DO F 285.9 ANEMIA UNSPECIFIED 11/25/2007 NELLY MILLING OPERATOR, MATEO R 285.9 ANEMIA UNSPECIFIED 11/25/2007 NELLY MILLING OPERATOR, MATEO R 285.9 ANEMIA UNSPECIFIED 11/25/2007 NELLY MILLING OPERATOR, MATEO R 285.9 ANEMIA UNSPECIFIED 11/25/2007 NELLY MILLING OPERATOR, MATEO R 285.9 ANEMIA UNSPECIFIED 11/25/2007 NELLY MILLING OPERATOR, MATEO R 285.9 ANEMIA UNSPECIFIED 12/06/2007 296.33 MAJOR DEPRESSIVE AFFECTIVE DISORDER RECURRENT EPISODE SEVERE DEGREE WITHOUT PSYCHOTIC BEHAVIOR 12/06/2007 296.33 MAJOR DEPRESSIVE AFFECTIVE DISORDER RECURRENT EPISODE SEVERE DEGREE WITHOUT PSYCHOTIC BEHAVIOR 12/06/2007 296.33 MAJOR DEPRESSIVE AFFECTIVE DISORDER RECURRENT EPISODE SEVERE DEGREE WITHOUT PSYCHOTIC BEHAVIOR 12/06/2007 296.33 MAJOR DEPRESSIVE AFFECTIVE DISORDER RECURRENT EPISODE SEVERE DEGREE WITHOUT PSYCHOTIC BEHAVIOR 12/06/2007 296.33 MAJOR DEPRESSIVE AFFECTIVE DISORDER RECURRENT EPISODE SEVERE DEGREE WITHOUT PSYCHOTIC BEHAVIOR 12/06/2007 296.33 MAJOR DEPRESSIVE AFFECTIVE DISORDER RECURRENT EPISODE SEVERE DEGREE WITHOUT PSYCHOTIC BEHAVIOR 12/06/2007 296.33 MAJOR DEPRESSIVE AFFECTIVE DISORDER RECURRENT EPISODE SEVERE DEGREE WITHOUT PSYCHOTIC BEHAVIOR 12/06/2007 296.33 MAJOR DEPRESSIVE AFFECTIVE DISORDER RECURRENT EPISODE SEVERE DEGREE WITHOUT PSYCHOTIC BEHAVIOR 12/06/2007 296.33 MAJOR DEPRESSIVE AFFECTIVE DISORDER RECURRENT EPISODE SEVERE DEGREE WITHOUT PSYCHOTIC BEHAVIOR 12/06/2007 296.33 MAJOR DEPRESSIVE AFFECTIVE DISORDER RECURRENT EPISODE SEVERE DEGREE WITHOUT PSYCHOTIC BEHAVIOR 12/06/2007 296.33 MAJOR DEPRESSIVE AFFECTIVE DISORDER RECURRENT EPISODE SEVERE DEGREE WITHOUT PSYCHOTIC BEHAVIOR 12/06/2007 PHYLLIS MARTINEZ DO 296.33 MAJOR DEPRESSIVE AFFECTIVE DISORDER RECURRENT EPISODE SEVERE DEGREE WITHOUT PSYCHOTIC BEHAVIOR 12/06/2007 NELLY MILLING OPERATOR, MATEO R 296.33 MAJOR DEPRESSIVE AFFECTIVE DISORDER RECURRENT EPISODE SEVERE DEGREE WITHOUT PSYCHOTIC BEHAVIOR 12/06/2007 NELLY MILLING OPERATOR, MATEO R 296.33 MAJOR DEPRESSIVE AFFECTIVE DISORDER RECURRENT EPISODE SEVERE DEGREE WITHOUT PSYCHOTIC BEHAVIOR 12/06/2007 NELLY MILLING OPERATOR, MATEO R 296.33 MAJOR DEPRESSIVE AFFECTIVE DISORDER RECURRENT EPISODE SEVERE DEGREE WITHOUT PSYCHOTIC BEHAVIOR 12/06/2007 NELLY MILLING OPERATOR, MATEO R 296.33 MAJOR DEPRESSIVE AFFECTIVE DISORDER RECURRENT EPISODE SEVERE DEGREE WITHOUT PSYCHOTIC BEHAVIOR 12/06/2007 NELLY MILLING OPERATOR, MATEO R 296.33 MAJOR DEPRESSIVE AFFECTIVE DISORDER RECURRENT EPISODE SEVERE DEGREE WITHOUT PSYCHOTIC BEHAVIOR 12/19/2007 301.22 PD SCHIZOTYPAL 12/19/2007 307.47 SI DYSSOMNIA NOS 12/19/2007 309.81 AN PTSD 12/19/2007 316 PF PSYCHIC FACTORS MED COND 12/19/2007 995.20 UNSPECIFIED ADVERSE EFFECT OF UNSPECIFIED DRUG MEDICINAL AND BIOLOGICAL SUBSTANCE 12/19/2007 301.22 PD SCHIZOTYPAL 12/19/2007 307.47 SI DYSSOMNIA NOS 12/19/2007 309.81 AN PTSD 12/19/2007 316 PF PSYCHIC FACTORS MED COND 12/19/2007 995.20 UNSPECIFIED ADVERSE EFFECT OF UNSPECIFIED DRUG MEDICINAL AND BIOLOGICAL SUBSTANCE 12/19/2007 301.22 PD SCHIZOTYPAL 12/19/2007 307.47 SI DYSSOMNIA NOS 12/19/2007 309.81 AN PTSD 12/19/2007 316 PF PSYCHIC FACTORS MED COND 12/19/2007 995.20 UNSPECIFIED ADVERSE EFFECT OF UNSPECIFIED DRUG MEDICINAL AND BIOLOGICAL SUBSTANCE 12/19/2007 301.22 PD SCHIZOTYPAL 12/19/2007 307.47 SI DYSSOMNIA NOS 12/19/2007 309.81 AN PTSD 12/19/2007 316 PF PSYCHIC FACTORS MED COND 12/19/2007 995.20 UNSPECIFIED ADVERSE EFFECT OF UNSPECIFIED DRUG MEDICINAL AND BIOLOGICAL SUBSTANCE 12/19/2007 301.22 PD SCHIZOTYPAL 12/19/2007 307.47 SI DYSSOMNIA NOS 12/19/2007 309.81 AN PTSD 12/19/2007 316 PF PSYCHIC FACTORS MED COND 12/19/2007 995.20 UNSPECIFIED ADVERSE EFFECT OF UNSPECIFIED DRUG MEDICINAL AND BIOLOGICAL SUBSTANCE 12/19/2007 301.22 PD SCHIZOTYPAL 12/19/2007 307.47 SI DYSSOMNIA NOS 12/19/2007 309.81 AN PTSD 12/19/2007 316 PF PSYCHIC FACTORS MED COND 12/19/2007 995.20 UNSPECIFIED ADVERSE EFFECT OF UNSPECIFIED DRUG MEDICINAL AND BIOLOGICAL SUBSTANCE 12/19/2007 301.22 PD SCHIZOTYPAL 12/19/2007 307.47 SI DYSSOMNIA NOS 12/19/2007 309.81 AN PTSD 12/19/2007 316 PF PSYCHIC FACTORS MED COND 12/19/2007 995.20 UNSPECIFIED ADVERSE EFFECT OF UNSPECIFIED DRUG MEDICINAL AND BIOLOGICAL SUBSTANCE 12/19/2007 301.22 PD SCHIZOTYPAL 12/19/2007 307.47 SI DYSSOMNIA NOS 12/19/2007 309.81 AN PTSD 12/19/2007 316 PF PSYCHIC FACTORS MED COND 12/19/2007 995.20 UNSPECIFIED ADVERSE EFFECT OF UNSPECIFIED DRUG MEDICINAL AND BIOLOGICAL SUBSTANCE 12/19/2007 301.22 PD SCHIZOTYPAL 12/19/2007 307.47 SI DYSSOMNIA NOS 12/19/2007 309.81 AN PTSD 12/19/2007 316 PF PSYCHIC FACTORS MED COND 12/19/2007 995.20 UNSPECIFIED ADVERSE EFFECT OF UNSPECIFIED DRUG MEDICINAL AND BIOLOGICAL SUBSTANCE 12/19/2007 301.22 PD SCHIZOTYPAL 12/19/2007 307.47 SI DYSSOMNIA NOS 12/19/2007 309.81 AN PTSD 12/19/2007 316 PF PSYCHIC FACTORS MED COND 12/19/2007 995.20 UNSPECIFIED ADVERSE EFFECT OF UNSPECIFIED DRUG MEDICINAL AND BIOLOGICAL SUBSTANCE 12/19/2007 301.22 PD SCHIZOTYPAL 12/19/2007 307.47 SI DYSSOMNIA NOS 12/19/2007 309.81 AN PTSD 12/19/2007 316 PF PSYCHIC FACTORS MED COND 12/19/2007 995.20 UNSPECIFIED ADVERSE EFFECT OF UNSPECIFIED DRUG MEDICINAL AND BIOLOGICAL SUBSTANCE 12/19/2007 PHYLLIS MARTINEZ DO 301.22 PD SCHIZOTYPAL 12/19/2007 PHYLLIS MARTINEZ DO 307.47 SI DYSSOMNIA NOS 12/19/2007 PHYLLIS MARTINEZ DO 309.81 AN PTSD 12/19/2007 PHYLLIS MARTINEZ DO F 316 PF PSYCHIC FACTORS MED COND 12/19/2007 PHYLLIS MARTINEZ DO F 995.20 UNSPECIFIED ADVERSE EFFECT OF UNSPECIFIED DRUG MEDICINAL AND BIOLOGICAL SUBSTANCE 12/19/2007 NELLY BERGN, MATEO R 301.22 PD SCHIZOTYPAL 12/19/2007 NELLY MILLING OPERATOR, MATEO R 307.47 SI DYSSOMNIA NOS 12/19/2007 NELLY BERGN, MATEO R 309.81 AN PTSD 12/19/2007 NELLY BERGN, MATEO R 316 PF PSYCHIC FACTORS MED COND 12/19/2007 NELLY BERGN, MATEO R 995.20 UNSPECIFIED ADVERSE EFFECT OF UNSPECIFIED DRUG MEDICINAL AND BIOLOGICAL SUBSTANCE 12/19/2007 NELLY URRUTIA MATEO R 301.22 PD SCHIZOTYPAL 12/19/2007 NELLY URRUTIA, MATEO R 307.47 SI DYSSOMNIA NOS 12/19/2007 NELLY URRUTIA, MATEO R 309.81 AN PTSD 12/19/2007 NELLY URRUTIA MATEO R 316 PF PSYCHIC FACTORS MED COND 12/19/2007 NELLY URRUTIA MATEO R 995.20 UNSPECIFIED ADVERSE EFFECT OF UNSPECIFIED DRUG MEDICINAL AND BIOLOGICAL SUBSTANCE 12/19/2007 NELLY BERGN, MATEO R 301.22 PD SCHIZOTYPAL 12/19/2007 NELLY URRUTIA, MATEO R 307.47 SI DYSSOMNIA NOS 12/19/2007 NELLY URRUTIA, MATEO R 309.81 AN PTSD 12/19/2007 NELLY URRUTIA MATEO R 316 PF PSYCHIC FACTORS MED COND 12/19/2007 NELLY URRUTIA MATEO R 995.20 UNSPECIFIED ADVERSE EFFECT OF UNSPECIFIED DRUG MEDICINAL AND BIOLOGICAL SUBSTANCE 12/19/2007 NELLY BERGN, MATEO R 301.22 PD SCHIZOTYPAL 12/19/2007 NELLY MILLING OPERATOR, MTAEO R 307.47 SI DYSSOMNIA NOS 12/19/2007 NELLY URRUTIA, MATEO R 309.81 AN PTSD 12/19/2007 NELLY URRUTIA MATEO R 316 PF PSYCHIC FACTORS MED COND 12/19/2007 NELLY BERGN, MATEO R 995.20 UNSPECIFIED ADVERSE EFFECT OF UNSPECIFIED DRUG MEDICINAL AND BIOLOGICAL SUBSTANCE 12/19/2007 NELLY URRUTIA MATEO R 301.22 PD SCHIZOTYPAL 12/19/2007 NELLY URRUTIA, MATEO R 307.47 SI DYSSOMNIA NOS 12/19/2007 MATEO VILLEGAS APRN R 309.81 AN PTSD 12/19/2007 MATEO VILLEGAS APRN 316 PF PSYCHIC FACTORS MED COND 12/19/2007 MATEO VILLEGAS APRN R 995.20 UNSPECIFIED ADVERSE EFFECT OF UNSPECIFIED DRUG MEDICINAL AND BIOLOGICAL SUBSTANCE 12/23/2007 V58.69 MEDICATION HIGH RISK 12/23/2007 V58.69 MEDICATION HIGH RISK 12/23/2007 V58.69 MEDICATION HIGH RISK 12/23/2007 V58.69 MEDICATION HIGH RISK 12/23/2007 V58.69 MEDICATION HIGH RISK 12/23/2007 V58.69 MEDICATION HIGH RISK 12/23/2007 V58.69 MEDICATION HIGH RISK 12/23/2007 V58.69 MEDICATION HIGH RISK 12/23/2007 V58.69 MEDICATION HIGH RISK 12/23/2007 V58.69 MEDICATION HIGH RISK 12/23/2007 V58.69 MEDICATION HIGH RISK 12/23/2007 PHYLLIS MARTINEZ DO V58.69 MEDICATION HIGH RISK 12/23/2007 MATEO VILLEGAS APRN R V58.69 MEDICATION HIGH RISK 12/23/2007 MATEO VILLEGAS APRN R V58.69 MEDICATION HIGH RISK 12/23/2007 SB VILLEGAS APRNINA R V58.69 MEDICATION HIGH RISK 12/23/2007 SB VILLEGAS APRNINA R V58.69 MEDICATION HIGH RISK 12/23/2007 NELLY URRUTIA MATEO R V58.69 MEDICATION HIGH RISK 12/25/2007 301.9 PD PERS DIS NOS 12/25/2007 301.9 PD PERS DIS NOS 12/25/2007 301.9 PD PERS DIS NOS 12/25/2007 301.9 PD PERS DIS NOS 12/25/2007 301.9 PD PERS DIS NOS 12/25/2007 301.9 PD PERS DIS NOS 12/25/2007 301.9 PD PERS DIS NOS 12/25/2007 301.9 PD PERS DIS NOS 12/25/2007 301.9 PD PERS DIS NOS 12/25/2007 301.9 PD PERS DIS NOS 12/25/2007 301.9 PD PERS DIS NOS 12/25/2007 PHYLLIS MARTINEZ DO 301.9 PD PERS DIS NOS 12/25/2007 MATEO VILLEGAS APRN R 301.9 PD PERS DIS NOS 12/25/2007 NELLY MILLING OPERATOR, MATEO R 301.9 PD PERS DIS NOS 12/25/2007 NELLY URRUTIA MATEO R 301.9 PD PERS DIS NOS 12/25/2007 NELLY URRUTIA MATEO R 301.9 PD PERS DIS NOS 12/25/2007 NELLY URRUTIA MATEO R 301.9 PD PERS DIS NOS 01/09/2008 300.4 MO DYSTHYMIC DIS 01/09/2008 300.4 MO DYSTHYMIC DIS 01/09/2008 300.4 MO DYSTHYMIC DIS 01/09/2008 300.4 MO DYSTHYMIC DIS 01/09/2008 300.4 MO DYSTHYMIC DIS 01/09/2008 300.4 MO DYSTHYMIC DIS 01/09/2008 300.4 MO DYSTHYMIC DIS 01/09/2008 300.4 MO DYSTHYMIC DIS 01/09/2008 300.4 MO DYSTHYMIC DIS 01/09/2008 300.4 MO DYSTHYMIC DIS 01/09/2008 300.4 MO DYSTHYMIC DIS 01/09/2008 PHYLLIS MARTINEZ DO 300.4 MO DYSTHYMIC DIS 01/09/2008 SB VILLEGAS APRNINA R 300.4 MO DYSTHYMIC DIS 01/09/2008 NELLY URRUTIA MATEO R 300.4 MO DYSTHYMIC DIS 01/09/2008 SB VILLEGAS APRNINA R 300.4 MO DYSTHYMIC DIS 01/09/2008 SB VILLEGAS APRNINA R 300.4 MO DYSTHYMIC DIS 01/09/2008 NELLY URRUTIA MATEO R 300.4 MO DYSTHYMIC DIS 02/12/2008 296.32 MAJOR DEPRESSION RECURRENT MODERATE 02/12/2008 296.32 MAJOR DEPRESSION RECURRENT MODERATE 02/12/2008 296.32 MAJOR DEPRESSION RECURRENT MODERATE 02/12/2008 296.32 MAJOR DEPRESSION RECURRENT MODERATE 02/12/2008 296.32 MAJOR DEPRESSION RECURRENT MODERATE 02/12/2008 296.32 MAJOR DEPRESSION RECURRENT MODERATE 02/12/2008 296.32 MAJOR DEPRESSION RECURRENT MODERATE 02/12/2008 296.32 MAJOR DEPRESSION RECURRENT MODERATE 02/12/2008 296.32 MAJOR DEPRESSION RECURRENT MODERATE 02/12/2008 296.32 MAJOR DEPRESSION RECURRENT MODERATE 02/12/2008 296.32 MAJOR DEPRESSION RECURRENT MODERATE 02/12/2008 PHYLLIS MARTINEZ DO F 296.32 MAJOR DEPRESSION RECURRENT MODERATE 02/12/2008 MATEO VILLEGAS APRN R 296.32 MAJOR DEPRESSION RECURRENT MODERATE 02/12/2008 NELLY MILLING OPERATOR, MATEO R 296.32 MAJOR DEPRESSION RECURRENT MODERATE 02/12/2008 NELLY URRUTIA MATEO R 296.32 MAJOR DEPRESSION RECURRENT MODERATE 02/12/2008 NELLY URRUTIA MATEO R 296.32 MAJOR DEPRESSION RECURRENT MODERATE 02/12/2008 NELLY URRUTIA MATEO R 296.32 MAJOR DEPRESSION RECURRENT MODERATE 03/02/2008 338.4 PAIN CHRONIC SYNDROME 03/02/2008 338.4 PAIN CHRONIC SYNDROME 03/02/2008 338.4 PAIN CHRONIC SYNDROME 03/02/2008 338.4 PAIN CHRONIC SYNDROME 03/02/2008 338.4 PAIN CHRONIC SYNDROME 03/02/2008 338.4 PAIN CHRONIC SYNDROME 03/02/2008 338.4 PAIN CHRONIC SYNDROME 03/02/2008 338.4 PAIN CHRONIC SYNDROME 03/02/2008 338.4 PAIN CHRONIC SYNDROME 03/02/2008 338.4 PAIN CHRONIC SYNDROME 03/02/2008 338.4 PAIN CHRONIC SYNDROME 03/02/2008 PHYLLIS MARTINEZ DO 338.4 PAIN CHRONIC SYNDROME 03/02/2008 SB VILLEGAS APRNINA R 338.4 PAIN CHRONIC SYNDROME 03/02/2008 SB VILLEGAS APRNINA R 338.4 PAIN CHRONIC SYNDROME 03/02/2008 SB VILLEGAS APRNINA R 338.4 PAIN CHRONIC SYNDROME 03/02/2008 SB VILLEGAS APRNINA R 338.4 PAIN CHRONIC SYNDROME 03/02/2008 SB VILLEGAS APRNINA R 338.4 PAIN CHRONIC SYNDROME 04/01/2008 300.02 GENERALIZED ANXIETY DISORDER 04/01/2008 300.02 GENERALIZED ANXIETY DISORDER 04/01/2008 300.02 GENERALIZED ANXIETY DISORDER 04/01/2008 300.02 GENERALIZED ANXIETY DISORDER 04/01/2008 300.02 GENERALIZED ANXIETY DISORDER 04/01/2008 300.02 GENERALIZED ANXIETY DISORDER 04/01/2008 300.02 GENERALIZED ANXIETY DISORDER 04/01/2008 300.02 GENERALIZED ANXIETY DISORDER 04/01/2008 300.02 GENERALIZED ANXIETY DISORDER 04/01/2008 300.02 GENERALIZED ANXIETY DISORDER 04/01/2008 300.02 GENERALIZED ANXIETY DISORDER 04/01/2008 PHYLLIS MARTINEZ DO 300.02 GENERALIZED ANXIETY DISORDER 04/01/2008 NELLY URRUTIA MATEO R 300.02 GENERALIZED ANXIETY DISORDER 04/01/2008 NELLY URRUTIA MATEO R 300.02 GENERALIZED ANXIETY DISORDER 04/01/2008 SB VILLEGAS APRNINA R 300.02 GENERALIZED ANXIETY DISORDER 04/01/2008 NELLY MILLING OPERATOR, MATEO R 300.02 GENERALIZED ANXIETY DISORDER 04/01/2008 NELLY MILLING OPERATOR, MATEO R 300.02 GENERALIZED ANXIETY DISORDER 05/23/2008 487.1 INFLUENZA 05/23/2008 780.60 FEVER, UNSPECIFIED 05/23/2008 780.79 MALAISE AND FATIGUE 05/23/2008 487.1 INFLUENZA 05/23/2008 780.60 FEVER, UNSPECIFIED 05/23/2008 780.79 MALAISE AND FATIGUE 05/23/2008 487.1 INFLUENZA 05/23/2008 780.60 FEVER, UNSPECIFIED 05/23/2008 780.79 MALAISE AND FATIGUE 05/23/2008 487.1 INFLUENZA 05/23/2008 780.60 FEVER, UNSPECIFIED 05/23/2008 780.79 MALAISE AND FATIGUE 05/23/2008 487.1 INFLUENZA 05/23/2008 780.60 FEVER, UNSPECIFIED 05/23/2008 780.79 MALAISE AND FATIGUE 05/23/2008 487.1 INFLUENZA 05/23/2008 780.60 FEVER, UNSPECIFIED 05/23/2008 780.79 MALAISE AND FATIGUE 05/23/2008 487.1 INFLUENZA 05/23/2008 780.60 FEVER, UNSPECIFIED 05/23/2008 780.79 MALAISE AND FATIGUE 05/23/2008 487.1 INFLUENZA 05/23/2008 780.60 FEVER, UNSPECIFIED 05/23/2008 780.79 MALAISE AND FATIGUE 05/23/2008 487.1 INFLUENZA 05/23/2008 780.60 FEVER, UNSPECIFIED 05/23/2008 780.79 MALAISE AND FATIGUE 05/23/2008 487.1 INFLUENZA 05/23/2008 780.60 FEVER, UNSPECIFIED 05/23/2008 780.79 MALAISE AND FATIGUE 05/23/2008 487.1 INFLUENZA 05/23/2008 780.60 FEVER, UNSPECIFIED 05/23/2008 780.79 MALAISE AND FATIGUE 05/23/2008 PHYLLIS MARTINEZ DO F 487.1 INFLUENZA 05/23/2008 PHYLLIS MARTINEZ DO F 780.60 FEVER, UNSPECIFIED 05/23/2008 PHYLLIS MARTINEZ DO F 780.79 MALAISE AND FATIGUE 05/23/2008 NELLY MILLING OPERATOR, MATEO R 487.1 INFLUENZA 05/23/2008 NELLY MILLING OPERATOR, MATEO R 780.60 FEVER, UNSPECIFIED 05/23/2008 NELLY MILLING OPERATOR, MATEO R 780.79 MALAISE AND FATIGUE 05/23/2008 NELLY MILLING OPERATOR, MATEO R 487.1 INFLUENZA 05/23/2008 NELLY MILLING OPERATOR, MATEO R 780.60 FEVER, UNSPECIFIED 05/23/2008 NELLY MILLING OPERATOR, MATEO R 780.79 MALAISE AND FATIGUE 05/23/2008 NELLY MILLING OPERATOR, MATEO R 487.1 INFLUENZA 05/23/2008 NELLY MILLING OPERATOR, MATEO R 780.60 FEVER, UNSPECIFIED 05/23/2008 NELLY MILLING OPERATOR, MATEO R 780.79 MALAISE AND FATIGUE 05/23/2008 NELLY MILLING OPERATOR, MATEO R 487.1 INFLUENZA 05/23/2008 NELLY MILLING OPERATOR, MATEO R 780.60 FEVER, UNSPECIFIED 05/23/2008 NELLY MILLING OPERATOR, MATEO R 780.79 MALAISE AND FATIGUE 05/23/2008 NELLY MILLING OPERATOR, MATEO R 487.1 INFLUENZA 05/23/2008 NELLY MILLING OPERATOR, MATEO R 780.60 FEVER, UNSPECIFIED 05/23/2008 NELLY MILLING OPERATOR, MATEO R 780.79 MALAISE AND FATIGUE 06/02/2008 716.90 ARTHRITIS/ ARTHROPATHY, UNSPECIFIED 06/02/2008 728.87 MUSCLE WEAKNESS (GENERALIZED) 06/02/2008 716.90 ARTHRITIS/ ARTHROPATHY, UNSPECIFIED 06/02/2008 728.87 MUSCLE WEAKNESS (GENERALIZED) 06/02/2008 716.90 ARTHRITIS/ ARTHROPATHY, UNSPECIFIED 06/02/2008 728.87 MUSCLE WEAKNESS (GENERALIZED) 06/02/2008 716.90 ARTHRITIS/ ARTHROPATHY, UNSPECIFIED 06/02/2008 728.87 MUSCLE WEAKNESS (GENERALIZED) 06/02/2008 716.90 ARTHRITIS/ ARTHROPATHY, UNSPECIFIED 06/02/2008 728.87 MUSCLE WEAKNESS (GENERALIZED) 06/02/2008 716.90 ARTHRITIS/ ARTHROPATHY, UNSPECIFIED 06/02/2008 728.87 MUSCLE WEAKNESS (GENERALIZED) 06/02/2008 716.90 ARTHRITIS/ ARTHROPATHY, UNSPECIFIED 06/02/2008 728.87 MUSCLE WEAKNESS (GENERALIZED) 06/02/2008 716.90 ARTHRITIS/ ARTHROPATHY, UNSPECIFIED 06/02/2008 728.87 MUSCLE WEAKNESS (GENERALIZED) 06/02/2008 716.90 ARTHRITIS/ ARTHROPATHY, UNSPECIFIED 06/02/2008 728.87 MUSCLE WEAKNESS (GENERALIZED) 06/02/2008 716.90 ARTHRITIS/ ARTHROPATHY, UNSPECIFIED 06/02/2008 728.87 MUSCLE WEAKNESS (GENERALIZED) 06/02/2008 716.90 ARTHRITIS/ ARTHROPATHY, UNSPECIFIED 06/02/2008 728.87 MUSCLE WEAKNESS (GENERALIZED) 06/02/2008 PHYLLIS MARTINEZ DO F 716.90 ARTHRITIS/ ARTHROPATHY, UNSPECIFIED 06/02/2008 PHYLLIS MARTINEZ DO F 728.87 MUSCLE WEAKNESS (GENERALIZED) 06/02/2008 NELLY MILLING OPERATOR, MATEO R 716.90 ARTHRITIS/ ARTHROPATHY, UNSPECIFIED 06/02/2008 NELLY MILLING OPERATOR, MATEO R 728.87 MUSCLE WEAKNESS (GENERALIZED) 06/02/2008 NELLY MILLING OPERATOR, MATEO R 716.90 ARTHRITIS/ ARTHROPATHY, UNSPECIFIED 06/02/2008 NELLY MILLING OPERATOR, MATEO R 728.87 MUSCLE WEAKNESS (GENERALIZED) 06/02/2008 NELLY MILLING OPERATOR, MATEO R 716.90 ARTHRITIS/ ARTHROPATHY, UNSPECIFIED 06/02/2008 NELLY MILLING OPERATOR, MATEO R 728.87 MUSCLE WEAKNESS (GENERALIZED) 06/02/2008 NELLY MILLING OPERATOR, MATEO R 716.90 ARTHRITIS/ ARTHROPATHY, UNSPECIFIED 06/02/2008 NELLY MILLING OPERATOR, MATEO R 728.87 MUSCLE WEAKNESS (GENERALIZED) 06/02/2008 NELLY MILLING OPERATOR, MATEO R 716.90 ARTHRITIS/ ARTHROPATHY, UNSPECIFIED 06/02/2008 NELLY MILLING OPERATOR, MATEO R 728.87 MUSCLE WEAKNESS (GENERALIZED) 08/03/2008 840.9 SPRAIN/STRAIN SHOULDER/ARM 08/03/2008 840.9 SPRAIN/STRAIN SHOULDER/ARM 08/03/2008 840.9 SPRAIN/STRAIN SHOULDER/ARM 08/03/2008 840.9 SPRAIN/STRAIN SHOULDER/ARM 08/03/2008 840.9 SPRAIN/STRAIN SHOULDER/ARM 08/03/2008 840.9 SPRAIN/STRAIN SHOULDER/ARM 08/03/2008 840.9 SPRAIN/STRAIN SHOULDER/ARM 08/03/2008 840.9 SPRAIN/STRAIN SHOULDER/ARM 08/03/2008 840.9 SPRAIN/STRAIN SHOULDER/ARM 08/03/2008 840.9 SPRAIN/STRAIN SHOULDER/ARM 08/03/2008 840.9 SPRAIN/STRAIN SHOULDER/ARM 08/03/2008 PHYLLIS MARTINEZ DO 840.9 SPRAIN/STRAIN SHOULDER/ARM 08/03/2008 NELLY URRUTIA, MATEO R 840.9 SPRAIN/STRAIN SHOULDER/ARM 08/03/2008 NELLY URRUTIA, MATEO R 840.9 SPRAIN/STRAIN SHOULDER/ARM 08/03/2008 NELLY URRUTIA, MATEO R 840.9 SPRAIN/STRAIN SHOULDER/ARM 08/03/2008 NELLY URRUTIA, MATEO R 840.9 SPRAIN/STRAIN SHOULDER/ARM 08/03/2008 NELLY URRUTIA, MATEO R 840.9 SPRAIN/STRAIN SHOULDER/ARM 09/09/2008 535.50 GASTRITIS UNSPEC 09/09/2008 535.50 GASTRITIS UNSPEC 09/09/2008 535.50 GASTRITIS UNSPEC 09/09/2008 535.50 GASTRITIS UNSPEC 09/09/2008 535.50 GASTRITIS UNSPEC 09/09/2008 535.50 GASTRITIS UNSPEC 09/09/2008 535.50 GASTRITIS UNSPEC 09/09/2008 535.50 GASTRITIS UNSPEC 09/09/2008 535.50 GASTRITIS UNSPEC 09/09/2008 535.50 GASTRITIS UNSPEC 09/09/2008 535.50 GASTRITIS UNSPEC 09/09/2008 PHYLLIS MARTINEZ DO F 535.50 GASTRITIS UNSPEC 09/09/2008 NELLY URRUTIA, MATEO R 535.50 GASTRITIS UNSPEC 09/09/2008 NELLY URRUTIA, MATEO R 535.50 GASTRITIS UNSPEC 09/09/2008 NELLY URRUTIA, MATEO R 535.50 GASTRITIS UNSPEC 09/09/2008 SB VILLEGAS APRNINA R 535.50 GASTRITIS UNSPEC 09/09/2008 MATEO VILLEGAS APRN R 535.50 GASTRITIS UNSPEC 09/25/2008 959.2 OTHER AND UNSPECIFIED INJURY TO SHOULDER AND UPPER ARM 09/25/2008 959.2 OTHER AND UNSPECIFIED INJURY TO SHOULDER AND UPPER ARM 09/25/2008 959.2 OTHER AND UNSPECIFIED INJURY TO SHOULDER AND UPPER ARM 09/25/2008 959.2 OTHER AND UNSPECIFIED INJURY TO SHOULDER AND UPPER ARM 09/25/2008 959.2 OTHER AND UNSPECIFIED INJURY TO SHOULDER AND UPPER ARM 09/25/2008 959.2 OTHER AND UNSPECIFIED INJURY TO SHOULDER AND UPPER ARM 09/25/2008 959.2 OTHER AND UNSPECIFIED INJURY TO SHOULDER AND UPPER ARM 09/25/2008 959.2 OTHER AND UNSPECIFIED INJURY TO SHOULDER AND UPPER ARM 09/25/2008 959.2 OTHER AND UNSPECIFIED INJURY TO SHOULDER AND UPPER ARM 09/25/2008 959.2 OTHER AND UNSPECIFIED INJURY TO SHOULDER AND UPPER ARM 09/25/2008 959.2 OTHER AND UNSPECIFIED INJURY TO SHOULDER AND UPPER ARM 09/25/2008 PHYLLIS MARTINEZ DO 959.2 OTHER AND UNSPECIFIED INJURY TO SHOULDER AND UPPER ARM 09/25/2008 NELLY MILLING OPERATOR, MATEO R 959.2 OTHER AND UNSPECIFIED INJURY TO SHOULDER AND UPPER ARM 09/25/2008 NELLY MILLING OPERATOR, MTAEO R 959.2 OTHER AND UNSPECIFIED INJURY TO SHOULDER AND UPPER ARM 09/25/2008 NELLY MILLING OPERATOR, MATEO R 959.2 OTHER AND UNSPECIFIED INJURY TO SHOULDER AND UPPER ARM 09/25/2008 NELLY MILLING OPERATOR, MATEO R 959.2 OTHER AND UNSPECIFIED INJURY TO SHOULDER AND UPPER ARM 09/25/2008 NELLY MILLING OPERATOR, MATEO R 959.2 OTHER AND UNSPECIFIED INJURY TO SHOULDER AND UPPER ARM 10/23/2008 719.41 PAIN IN JOINT INVOLVING SHOULDER REGION 10/23/2008 719.41 PAIN IN JOINT INVOLVING SHOULDER REGION 10/23/2008 719.41 PAIN IN JOINT INVOLVING SHOULDER REGION 10/23/2008 719.41 PAIN IN JOINT INVOLVING SHOULDER REGION 10/23/2008 719.41 PAIN IN JOINT INVOLVING SHOULDER REGION 10/23/2008 719.41 PAIN IN JOINT INVOLVING SHOULDER REGION 10/23/2008 719.41 PAIN IN JOINT INVOLVING SHOULDER REGION 10/23/2008 719.41 PAIN IN JOINT INVOLVING SHOULDER REGION 10/23/2008 719.41 PAIN IN JOINT INVOLVING SHOULDER REGION 10/23/2008 719.41 PAIN IN JOINT INVOLVING SHOULDER REGION 10/23/2008 719.41 PAIN IN JOINT INVOLVING SHOULDER REGION 10/23/2008 PHYLLIS MARTINEZ DO 719.41 PAIN IN JOINT INVOLVING SHOULDER REGION 10/23/2008 NELLY BERGN MATEO R 719.41 PAIN IN JOINT INVOLVING SHOULDER REGION 10/23/2008 NELLY BERGN MATEO R 719.41 PAIN IN JOINT INVOLVING SHOULDER REGION 10/23/2008 NELLY URRUTIA MATEO R 719.41 PAIN IN JOINT INVOLVING SHOULDER REGION 10/23/2008 NELLY URRUTIA MATEO R 719.41 PAIN IN JOINT INVOLVING SHOULDER REGION 10/23/2008 MATEO VILLEGAS APRN R 719.41 PAIN IN JOINT INVOLVING SHOULDER REGION 01/06/2009 847.0 SPRAIN/STRAIN NECK 01/06/2009 847.0 SPRAIN/STRAIN NECK 01/06/2009 847.0 SPRAIN/STRAIN NECK 01/06/2009 847.0 SPRAIN/STRAIN NECK 01/06/2009 847.0 SPRAIN/STRAIN NECK 01/06/2009 847.0 SPRAIN/STRAIN NECK 01/06/2009 847.0 SPRAIN/STRAIN NECK 01/06/2009 847.0 SPRAIN/STRAIN NECK 01/06/2009 847.0 SPRAIN/STRAIN NECK 01/06/2009 847.0 SPRAIN/STRAIN NECK 01/06/2009 847.0 SPRAIN/STRAIN NECK 01/06/2009 PHYLLIS MARTINEZ DO 847.0 SPRAIN/STRAIN NECK 01/06/2009 MATEO VILLEGAS APRN R 847.0 SPRAIN/STRAIN NECK 01/06/2009 MATEO VILLEGAS APRN R 847.0 SPRAIN/STRAIN NECK 01/06/2009 SB VILLEGAS APRNINA R 847.0 SPRAIN/STRAIN NECK 01/06/2009 MATEO VILLEGAS APRN R 847.0 SPRAIN/STRAIN NECK 01/06/2009 MATEO VILLEGAS APRN R 847.0 SPRAIN/STRAIN NECK 01/11/2009 842.00 SPRAIN/STRAIN WRIST 01/11/2009 842.00 SPRAIN/STRAIN WRIST 01/11/2009 842.00 SPRAIN/STRAIN WRIST 01/11/2009 842.00 SPRAIN/STRAIN WRIST 01/11/2009 842.00 SPRAIN/STRAIN WRIST 01/11/2009 842.00 SPRAIN/STRAIN WRIST 01/11/2009 842.00 SPRAIN/STRAIN WRIST 01/11/2009 842.00 SPRAIN/STRAIN WRIST 01/11/2009 842.00 SPRAIN/STRAIN WRIST 01/11/2009 842.00 SPRAIN/STRAIN WRIST 01/11/2009 842.00 SPRAIN/STRAIN WRIST 01/11/2009 PHYLLIS MARTINEZ DO 842.00 SPRAIN/STRAIN WRIST 01/11/2009 NELLY MILLING OPERATOR, MATEO R 842.00 SPRAIN/STRAIN WRIST 01/11/2009 NELLY MILLING OPERATOR, MATEO R 842.00 SPRAIN/STRAIN WRIST 01/11/2009 NELLY BERGN, MATEO R 842.00 SPRAIN/STRAIN WRIST 01/11/2009 NELLY MILLING OPERATOR, MATEO R 842.00 SPRAIN/STRAIN WRIST 01/11/2009 NELLY BERGN, MATEO R 842.00 SPRAIN/STRAIN WRIST 08/10/2009 719.46 PAIN IN JOINT, LOWER LEG 08/10/2009 719.46 PAIN IN JOINT, LOWER LEG 08/10/2009 719.46 PAIN IN JOINT, LOWER LEG 08/10/2009 719.46 PAIN IN JOINT, LOWER LEG 08/10/2009 719.46 PAIN IN JOINT, LOWER LEG 08/10/2009 719.46 PAIN IN JOINT, LOWER LEG 08/10/2009 719.46 PAIN IN JOINT, LOWER LEG 08/10/2009 719.46 PAIN IN JOINT, LOWER LEG 08/10/2009 719.46 PAIN IN JOINT, LOWER LEG 08/10/2009 719.46 PAIN IN JOINT, LOWER LEG 08/10/2009 719.46 PAIN IN JOINT, LOWER LEG 08/10/2009 PHYLLIS MARTINEZ DO F 719.46 PAIN IN JOINT, LOWER LEG 08/10/2009 NELLY BERGN, MATEO R 719.46 PAIN IN JOINT, LOWER LEG 08/10/2009 NELLY MILLING OPERATOR, MATEO R 719.46 PAIN IN JOINT, LOWER LEG 08/10/2009 NELLY BERGN, MATEO R 719.46 PAIN IN JOINT, LOWER LEG 08/10/2009 NELLY BERGN, MATEO R 719.46 PAIN IN JOINT, LOWER LEG 08/10/2009 NELLY BERGN, MATEO R 719.46 PAIN IN JOINT, LOWER LEG 08/19/2009 692.6 CONTACT DERMATITIS AND OTHER ECZEMA, DUE TO PLANTS [EXCEPT FOOD] 08/19/2009 692.6 CONTACT DERMATITIS AND OTHER ECZEMA, DUE TO PLANTS [EXCEPT FOOD] 08/19/2009 692.6 CONTACT DERMATITIS AND OTHER ECZEMA, DUE TO PLANTS [EXCEPT FOOD] 08/19/2009 692.6 CONTACT DERMATITIS AND OTHER ECZEMA, DUE TO PLANTS [EXCEPT FOOD] 08/19/2009 692.6 CONTACT DERMATITIS AND OTHER ECZEMA, DUE TO PLANTS [EXCEPT FOOD] 08/19/2009 692.6 CONTACT DERMATITIS AND OTHER ECZEMA, DUE TO PLANTS [EXCEPT FOOD] 08/19/2009 692.6 CONTACT DERMATITIS AND OTHER ECZEMA, DUE TO PLANTS [EXCEPT FOOD] 08/19/2009 692.6 CONTACT DERMATITIS AND OTHER ECZEMA, DUE TO PLANTS [EXCEPT FOOD] 08/19/2009 692.6 CONTACT DERMATITIS AND OTHER ECZEMA, DUE TO PLANTS [EXCEPT FOOD] 08/19/2009 692.6 CONTACT DERMATITIS AND OTHER ECZEMA, DUE TO PLANTS [EXCEPT FOOD] 08/19/2009 692.6 CONTACT DERMATITIS AND OTHER ECZEMA, DUE TO PLANTS [EXCEPT FOOD] 08/19/2009 PHYLLIS MARTINEZ DO F 692.6 CONTACT DERMATITIS AND OTHER ECZEMA, DUE TO PLANTS [EXCEPT FOOD] 08/19/2009 NELLY URRUTIA MATEO R 692.6 CONTACT DERMATITIS AND OTHER ECZEMA, DUE TO PLANTS [EXCEPT FOOD] 08/19/2009 NELLY URRUTIA MATEO R 692.6 CONTACT DERMATITIS AND OTHER ECZEMA, DUE TO PLANTS [EXCEPT FOOD] 08/19/2009 NELLY URRUTIA MATEO R 692.6 CONTACT DERMATITIS AND OTHER ECZEMA, DUE TO PLANTS [EXCEPT FOOD] 08/19/2009 NELLY URRUTIA MATEO R 692.6 CONTACT DERMATITIS AND OTHER ECZEMA, DUE TO PLANTS [EXCEPT FOOD] 08/19/2009 NELLY URRUTIA MATEO R 692.6 CONTACT DERMATITIS AND OTHER ECZEMA, DUE TO PLANTS [EXCEPT FOOD] 08/27/2009 692.9 DERMATITIS CONTACT UNSPECIFIED 08/27/2009 692.9 DERMATITIS CONTACT UNSPECIFIED 08/27/2009 692.9 DERMATITIS CONTACT UNSPECIFIED 08/27/2009 692.9 DERMATITIS CONTACT UNSPECIFIED 08/27/2009 692.9 DERMATITIS CONTACT UNSPECIFIED 08/27/2009 692.9 DERMATITIS CONTACT UNSPECIFIED 08/27/2009 692.9 DERMATITIS CONTACT UNSPECIFIED 08/27/2009 692.9 DERMATITIS CONTACT UNSPECIFIED 08/27/2009 692.9 DERMATITIS CONTACT UNSPECIFIED 08/27/2009 692.9 DERMATITIS CONTACT UNSPECIFIED 08/27/2009 692.9 DERMATITIS CONTACT UNSPECIFIED 08/27/2009 JUAN PHYLLIS F 692.9 DERMATITIS CONTACT UNSPECIFIED 08/27/2009 NELLY URRUTIA MATEO R 692.9 DERMATITIS CONTACT UNSPECIFIED 08/27/2009 NELLY MILLING OPERATOR, MATEO R 692.9 DERMATITIS CONTACT UNSPECIFIED 08/27/2009 NELLY MILLING OPERATOR, MATEO R 692.9 DERMATITIS CONTACT UNSPECIFIED 08/27/2009 NELLY MILLING OPERATOR, MATEO R 692.9 DERMATITIS CONTACT UNSPECIFIED 08/27/2009 NELLY MILLING OPERATOR, MATEO R 692.9 DERMATITIS CONTACT UNSPECIFIED 11/01/2009 296.90 MOOD DISORDER 11/01/2009 296.90 MOOD DISORDER 11/01/2009 296.90 MOOD DISORDER 11/01/2009 296.90 MOOD DISORDER 11/01/2009 296.90 MOOD DISORDER 11/01/2009 296.90 MOOD DISORDER 11/01/2009 296.90 MOOD DISORDER 11/01/2009 296.90 MOOD DISORDER 11/01/2009 296.90 MOOD DISORDER 11/01/2009 296.90 MOOD DISORDER 11/01/2009 296.90 MOOD DISORDER 11/01/2009 JUAN NATH PHYLLIS F 296.90 MOOD DISORDER 11/01/2009 NELLY MILLING OPERATOR, MATEO R 296.90 MOOD DISORDER 11/01/2009 NELLY BERGN, MATEO R 296.90 MOOD DISORDER 11/01/2009 NELLY MILLING OPERATOR, MATEO R 296.90 MOOD DISORDER 11/01/2009 NELLY MILLING OPERATOR, MATEO R 296.90 MOOD DISORDER 11/01/2009 NELLY MILLING OPERATOR, MATEO R 296.90 MOOD DISORDER 01/31/2010 625.3 DYSMENORRHEA 01/31/2010 626.2 EXCESSIVE OR FREQUENT MENSTRUATION 01/31/2010 V72.31 REWINDER OPERATOR HELPER EXAM, ROUTINE 01/31/2010 625.3 DYSMENORRHEA 01/31/2010 626.2 EXCESSIVE OR FREQUENT MENSTRUATION 01/31/2010 V72.31 REWINDER OPERATOR HELPER EXAM, ROUTINE 01/31/2010 625.3 DYSMENORRHEA 01/31/2010 626.2 EXCESSIVE OR FREQUENT MENSTRUATION 01/31/2010 V72.31 REWINDER OPERATOR HELPER EXAM, ROUTINE 01/31/2010 625.3 DYSMENORRHEA 01/31/2010 626.2 EXCESSIVE OR FREQUENT MENSTRUATION 01/31/2010 V72.31 REWINDER OPERATOR HELPER EXAM, ROUTINE 01/31/2010 625.3 DYSMENORRHEA 01/31/2010 626.2 EXCESSIVE OR FREQUENT MENSTRUATION 01/31/2010 V72.31 REWINDER OPERATOR HELPER EXAM, ROUTINE 01/31/2010 625.3 DYSMENORRHEA 01/31/2010 626.2 EXCESSIVE OR FREQUENT MENSTRUATION 01/31/2010 V72.31 REWINDER OPERATOR HELPER EXAM, ROUTINE 01/31/2010 625.3 DYSMENORRHEA 01/31/2010 626.2 EXCESSIVE OR FREQUENT MENSTRUATION 01/31/2010 V72.31 REWINDER OPERATOR HELPER EXAM, ROUTINE 01/31/2010 625.3 DYSMENORRHEA 01/31/2010 626.2 EXCESSIVE OR FREQUENT MENSTRUATION 01/31/2010 V72.31 REWINDER OPERATOR HELPER EXAM, ROUTINE 01/31/2010 625.3 DYSMENORRHEA 01/31/2010 626.2 EXCESSIVE OR FREQUENT MENSTRUATION 01/31/2010 V72.31 REWINDER OPERATOR HELPER EXAM, ROUTINE 01/31/2010 625.3 DYSMENORRHEA 01/31/2010 626.2 EXCESSIVE OR FREQUENT MENSTRUATION 01/31/2010 V72.31 REWINDER OPERATOR HELPER EXAM, ROUTINE 01/31/2010 625.3 DYSMENORRHEA 01/31/2010 626.2 EXCESSIVE OR FREQUENT MENSTRUATION 01/31/2010 V72.31 REWINDER OPERATOR HELPER EXAM, ROUTINE 01/31/2010 JUAN DOKEVEN F 625.3 DYSMENORRHEA 01/31/2010 JUAN DOKEVEN F 626.2 EXCESSIVE OR FREQUENT MENSTRUATION 01/31/2010 JUAN DO, PHYLLIS F V72.31 REWINDER OPERATOR HELPER EXAM, ROUTINE 01/31/2010 NELLY MILLING OPERATOR, MATEO R 625.3 DYSMENORRHEA 01/31/2010 NELLY MILLING OPERATOR, MATEO R 626.2 EXCESSIVE OR FREQUENT MENSTRUATION 01/31/2010 NELLY MILLING OPERATOR, MATEO R V72.31 REWINDER OPERATOR HELPER EXAM, ROUTINE 01/31/2010 NELLY MILLING OPERATOR, MATEO R 625.3 DYSMENORRHEA 01/31/2010 NELLY MILLING OPERATOR, MATEO R 626.2 EXCESSIVE OR FREQUENT MENSTRUATION 01/31/2010 NELLY MILLING OPERATOR, MATEO R V72.31 REWINDER OPERATOR HELPER EXAM, ROUTINE 01/31/2010 NELLY MILLING OPERATOR, MATEO R 625.3 DYSMENORRHEA 01/31/2010 NELLY MILLING OPERATOR, MATEO R 626.2 EXCESSIVE OR FREQUENT MENSTRUATION 01/31/2010 NELLY MILLING OPERATOR, MATEO R V72.31 REWINDER OPERATOR HELPER EXAM, ROUTINE 01/31/2010 NELLY MILLING OPERATOR, MATEO R 625.3 DYSMENORRHEA 01/31/2010 NELLY MILLING OPERATOR, MATEO R 626.2 EXCESSIVE OR FREQUENT MENSTRUATION 01/31/2010 NELLY MILLING OPERATOR, MATEO R V72.31 REWINDER OPERATOR HELPER EXAM, ROUTINE 01/31/2010 MATEO VILLEGAS APRN R 625.3 DYSMENORRHEA 01/31/2010 MATEO VILLEGAS APRN 626.2 EXCESSIVE OR FREQUENT MENSTRUATION 01/31/2010 MATEO VILLEGAS APRN R V72.31 REWINDER OPERATOR HELPER EXAM, ROUTINE 03/25/2010 995.3 ALLERGY UNSPECIFIED NOT ELSEWHERE CLASSIFIED 03/25/2010 995.3 ALLERGY UNSPECIFIED NOT ELSEWHERE CLASSIFIED 03/25/2010 995.3 ALLERGY UNSPECIFIED NOT ELSEWHERE CLASSIFIED 03/25/2010 995.3 ALLERGY UNSPECIFIED NOT ELSEWHERE CLASSIFIED 03/25/2010 995.3 ALLERGY UNSPECIFIED NOT ELSEWHERE CLASSIFIED 03/25/2010 995.3 ALLERGY UNSPECIFIED NOT ELSEWHERE CLASSIFIED 03/25/2010 995.3 ALLERGY UNSPECIFIED NOT ELSEWHERE CLASSIFIED 03/25/2010 995.3 ALLERGY UNSPECIFIED NOT ELSEWHERE CLASSIFIED 03/25/2010 995.3 ALLERGY UNSPECIFIED NOT ELSEWHERE CLASSIFIED 03/25/2010 995.3 ALLERGY UNSPECIFIED NOT ELSEWHERE CLASSIFIED 03/25/2010 995.3 ALLERGY UNSPECIFIED NOT ELSEWHERE CLASSIFIED 03/25/2010 PHYLLIS MARTINEZ DO 995.3 ALLERGY UNSPECIFIED NOT ELSEWHERE CLASSIFIED 03/25/2010 MATEO VILLEGAS APRN R 995.3 ALLERGY UNSPECIFIED NOT ELSEWHERE CLASSIFIED 03/25/2010 MATEO VILLEGAS APRN R 995.3 ALLERGY UNSPECIFIED NOT ELSEWHERE CLASSIFIED 03/25/2010 MATEO VILLEGAS APRN R 995.3 ALLERGY UNSPECIFIED NOT ELSEWHERE CLASSIFIED 03/25/2010 MATEO VILLEGAS APRN R 995.3 ALLERGY UNSPECIFIED NOT ELSEWHERE CLASSIFIED 03/25/2010 MATEO VILLEGAS APRN R 995.3 ALLERGY UNSPECIFIED NOT ELSEWHERE CLASSIFIED 05/31/2010 724.2 LUMBAGO 05/31/2010 724.2 LUMBAGO 05/31/2010 724.2 LUMBAGO 05/31/2010 724.2 LUMBAGO 05/31/2010 724.2 LUMBAGO 05/31/2010 724.2 LUMBAGO 05/31/2010 724.2 LUMBAGO 05/31/2010 724.2 LUMBAGO 05/31/2010 724.2 LUMBAGO 05/31/2010 724.2 LUMBAGO 05/31/2010 724.2 LUMBAGO 05/31/2010 JUAN NATH PHYLLIS F 724.2 LUMBAGO 05/31/2010 NELLY MILLING OPERATOR, MATEO R 724.2 LUMBAGO 05/31/2010 NELLY MILLING OPERATOR, MATEO R 724.2 LUMBAGO 05/31/2010 NELLY MILLING OPERATOR, MATEO R 724.2 LUMBAGO 05/31/2010 NELLY MILLING OPERATOR, MATEO R 724.2 LUMBAGO 05/31/2010 NELLY MILLING OPERATOR, MATEO R 724.2 LUMBAGO 06/23/2010 278.00 OBESITY UNSPECIFIED 06/23/2010 616.10 VAGINITIS VULVOVAGINITIS UNSPECIFIED 06/23/2010 724.1 PAIN IN THORACIC SPINE 06/23/2010 V74.5 STD SCREEN 06/23/2010 278.00 OBESITY UNSPECIFIED 06/23/2010 616.10 VAGINITIS VULVOVAGINITIS UNSPECIFIED 06/23/2010 724.1 PAIN IN THORACIC SPINE 06/23/2010 V74.5 STD SCREEN 06/23/2010 278.00 OBESITY UNSPECIFIED 06/23/2010 616.10 VAGINITIS VULVOVAGINITIS UNSPECIFIED 06/23/2010 724.1 PAIN IN THORACIC SPINE 06/23/2010 V74.5 STD SCREEN 06/23/2010 278.00 OBESITY UNSPECIFIED 06/23/2010 616.10 VAGINITIS VULVOVAGINITIS UNSPECIFIED 06/23/2010 724.1 PAIN IN THORACIC SPINE 06/23/2010 V74.5 STD SCREEN 06/23/2010 278.00 OBESITY UNSPECIFIED 06/23/2010 616.10 VAGINITIS VULVOVAGINITIS UNSPECIFIED 06/23/2010 724.1 PAIN IN THORACIC SPINE 06/23/2010 V74.5 STD SCREEN 06/23/2010 278.00 OBESITY UNSPECIFIED 06/23/2010 616.10 VAGINITIS VULVOVAGINITIS UNSPECIFIED 06/23/2010 724.1 PAIN IN THORACIC SPINE 06/23/2010 V74.5 STD SCREEN 06/23/2010 278.00 OBESITY UNSPECIFIED 06/23/2010 616.10 VAGINITIS VULVOVAGINITIS UNSPECIFIED 06/23/2010 724.1 PAIN IN THORACIC SPINE 06/23/2010 V74.5 STD SCREEN 06/23/2010 278.00 OBESITY UNSPECIFIED 06/23/2010 616.10 VAGINITIS VULVOVAGINITIS UNSPECIFIED 06/23/2010 724.1 PAIN IN THORACIC SPINE 06/23/2010 V74.5 STD SCREEN 06/23/2010 278.00 OBESITY UNSPECIFIED 06/23/2010 616.10 VAGINITIS VULVOVAGINITIS UNSPECIFIED 06/23/2010 724.1 PAIN IN THORACIC SPINE 06/23/2010 V74.5 STD SCREEN 06/23/2010 278.00 OBESITY UNSPECIFIED 06/23/2010 616.10 VAGINITIS VULVOVAGINITIS UNSPECIFIED 06/23/2010 724.1 PAIN IN THORACIC SPINE 06/23/2010 V74.5 STD SCREEN 06/23/2010 278.00 OBESITY UNSPECIFIED 06/23/2010 616.10 VAGINITIS VULVOVAGINITIS UNSPECIFIED 06/23/2010 724.1 PAIN IN THORACIC SPINE 06/23/2010 V74.5 STD SCREEN 06/23/2010 PHYLLIS MARTINEZ DO F 278.00 OBESITY UNSPECIFIED 06/23/2010 PHYLLIS MARTINEZ DO F 616.10 VAGINITIS VULVOVAGINITIS UNSPECIFIED 06/23/2010 PHYLLIS MARTINEZ DO F 724.1 PAIN IN THORACIC SPINE 06/23/2010 PHYLLIS MARTINEZ DO F V74.5 STD SCREEN 06/23/2010 NELLY MILLING OPERATOR, MATEO R 278.00 OBESITY UNSPECIFIED 06/23/2010 NELLY MILLING OPERATOR, MATEO R 616.10 VAGINITIS VULVOVAGINITIS UNSPECIFIED 06/23/2010 NELLY MILLING OPERATOR, MATEO R 724.1 PAIN IN THORACIC SPINE 06/23/2010 NELLY MILLING OPERATOR, MATEO R V74.5 STD SCREEN 06/23/2010 NELLY MILLING OPERATOR, MATEO R 278.00 OBESITY UNSPECIFIED 06/23/2010 NELLY MILLING OPERATOR, MATEO R 616.10 VAGINITIS VULVOVAGINITIS UNSPECIFIED 06/23/2010 NELLY MILLING OPERATOR, MATEO R 724.1 PAIN IN THORACIC SPINE 06/23/2010 NELLY MILLING OPERATOR, MATEO R V74.5 STD SCREEN 06/23/2010 NELLY MILLING OPERATOR, MATEO R 278.00 OBESITY UNSPECIFIED 06/23/2010 NELLY MILLING OPERATOR, MATEO R 616.10 VAGINITIS VULVOVAGINITIS UNSPECIFIED 06/23/2010 NELLY MILLING OPERATOR, MATEO R 724.1 PAIN IN THORACIC SPINE 06/23/2010 NELLY MILLING OPERATOR, MATEO R V74.5 STD SCREEN 06/23/2010 NELLY MILLING OPERATOR, MATEO R 278.00 OBESITY UNSPECIFIED 06/23/2010 NELLY MILLING OPERATOR, MATEO R 616.10 VAGINITIS VULVOVAGINITIS UNSPECIFIED 06/23/2010 NELLY MILLING OPERATOR, MATEO R 724.1 PAIN IN THORACIC SPINE 06/23/2010 NELLY MILLING OPERATOR, MATEO R V74.5 STD SCREEN 06/23/2010 NELLY MILLING OPERATOR, MATEO R 278.00 OBESITY UNSPECIFIED 06/23/2010 NELLY MILLING OPERATOR, MATEO R 616.10 VAGINITIS VULVOVAGINITIS UNSPECIFIED 06/23/2010 NELLY MILLING OPERATOR, MATEO R 724.1 PAIN IN THORACIC SPINE 06/23/2010 NELLY BERGN, MATEO R V74.5 STD SCREEN 06/28/2010 611.0 INFLAMMATORY DISEASE OF BREAST 06/28/2010 611.0 INFLAMMATORY DISEASE OF BREAST 06/28/2010 611.0 INFLAMMATORY DISEASE OF BREAST 06/28/2010 611.0 INFLAMMATORY DISEASE OF BREAST 06/28/2010 611.0 INFLAMMATORY DISEASE OF BREAST 06/28/2010 611.0 INFLAMMATORY DISEASE OF BREAST 06/28/2010 611.0 INFLAMMATORY DISEASE OF BREAST 06/28/2010 611.0 INFLAMMATORY DISEASE OF BREAST 06/28/2010 611.0 INFLAMMATORY DISEASE OF BREAST 06/28/2010 611.0 INFLAMMATORY DISEASE OF BREAST 06/28/2010 611.0 INFLAMMATORY DISEASE OF BREAST 06/28/2010 PHYLLIS MARTINEZ DO 611.0 INFLAMMATORY DISEASE OF BREAST 06/28/2010 NELLY MILLING OPERATOR, MATEO R 611.0 INFLAMMATORY DISEASE OF BREAST 06/28/2010 NELLY MILLING OPERATOR, MATEO R 611.0 INFLAMMATORY DISEASE OF BREAST 06/28/2010 NELLY MILLING OPERATOR, MATEO R 611.0 INFLAMMATORY DISEASE OF BREAST 06/28/2010 NELLY BERGN, MATEO R 611.0 INFLAMMATORY DISEASE OF BREAST 06/28/2010 NELLY BERGN, MATEO R 611.0 INFLAMMATORY DISEASE OF BREAST 08/30/2010 788.1 DYSURIA 08/30/2010 788.1 DYSURIA 08/30/2010 788.1 DYSURIA 08/30/2010 788.1 DYSURIA 08/30/2010 788.1 DYSURIA 08/30/2010 788.1 DYSURIA 08/30/2010 788.1 DYSURIA 08/30/2010 788.1 DYSURIA 08/30/2010 788.1 DYSURIA 08/30/2010 788.1 DYSURIA 08/30/2010 788.1 DYSURIA 08/30/2010 PHYLLIS MARTINEZ DO F 788.1 DYSURIA 08/30/2010 NELLY URRUTIA MATEO R 788.1 DYSURIA 08/30/2010 SB VILLEGAS APRNINA R 788.1 DYSURIA 08/30/2010 SB VILLEGAS APRNINA R 788.1 DYSURIA 08/30/2010 SB VILLEGAS APRNINA R 788.1 DYSURIA 08/30/2010 SB VILLEGAS APRNINA R 788.1 DYSURIA 09/28/2010 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 09/28/2010 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 09/28/2010 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 09/28/2010 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 09/28/2010 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 09/28/2010 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 09/28/2010 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 09/28/2010 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 09/28/2010 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 09/28/2010 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 09/28/2010 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 09/28/2010 PHYLLIS MARTINEZ DO F 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 09/28/2010 MATEO VILLEGAS APRN R 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 09/28/2010 MATEO VILLEGAS APRN R 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 09/28/2010 MATEO VILLEGAS APRN R 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 09/28/2010 MATEO VILLEGAS APRN R 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 09/28/2010 NELLY MILLING OPERATOR, MATEO R 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 02/14/2011 296.36 MO DEPRESSIVE RECURRENT IN FULL REMISSION 02/14/2011 296.36 MO DEPRESSIVE RECURRENT IN FULL REMISSION 02/14/2011 296.36 MO DEPRESSIVE RECURRENT IN FULL REMISSION 02/14/2011 296.36 MO DEPRESSIVE RECURRENT IN FULL REMISSION 02/14/2011 296.36 MO DEPRESSIVE RECURRENT IN FULL REMISSION 02/14/2011 296.36 MO DEPRESSIVE RECURRENT IN FULL REMISSION 02/14/2011 296.36 MO DEPRESSIVE RECURRENT IN FULL REMISSION 02/14/2011 296.36 MO DEPRESSIVE RECURRENT IN FULL REMISSION 02/14/2011 296.36 MO DEPRESSIVE RECURRENT IN FULL REMISSION 02/14/2011 296.36 MO DEPRESSIVE RECURRENT IN FULL REMISSION 02/14/2011 296.36 MO DEPRESSIVE RECURRENT IN FULL REMISSION 02/14/2011 PHYLLIS MARTINEZ DO 296.36 MO DEPRESSIVE RECURRENT IN FULL REMISSION 02/14/2011 NELLY URRUTIA MATEO R 296.36 MO DEPRESSIVE RECURRENT IN FULL REMISSION 02/14/2011 NELLY URRUTIA MATEO R 296.36 MO DEPRESSIVE RECURRENT IN FULL REMISSION 02/14/2011 NELLY URRUTIA MATEO R 296.36 MO DEPRESSIVE RECURRENT IN FULL REMISSION 02/14/2011 NELLY URRUTIA MATEO R 296.36 MO DEPRESSIVE RECURRENT IN FULL REMISSION 02/14/2011 NELLY URRUTIA MATEO R 296.36 MO DEPRESSIVE RECURRENT IN FULL REMISSION 06/19/2012 826.0 CLOSED FRACTURE OF ONE OR MORE PHALANGES OF FOOT 06/19/2012 826.0 CLOSED FRACTURE OF ONE OR MORE PHALANGES OF FOOT 06/19/2012 826.0 CLOSED FRACTURE OF ONE OR MORE PHALANGES OF FOOT 06/19/2012 826.0 CLOSED FRACTURE OF ONE OR MORE PHALANGES OF FOOT 06/19/2012 826.0 CLOSED FRACTURE OF ONE OR MORE PHALANGES OF FOOT 06/19/2012 826.0 CLOSED FRACTURE OF ONE OR MORE PHALANGES OF FOOT 06/19/2012 826.0 CLOSED FRACTURE OF ONE OR MORE PHALANGES OF FOOT 06/19/2012 826.0 CLOSED FRACTURE OF ONE OR MORE PHALANGES OF FOOT 06/19/2012 826.0 CLOSED FRACTURE OF ONE OR MORE PHALANGES OF FOOT 06/19/2012 PHYLLIS MARTINEZ DO 826.0 CLOSED FRACTURE OF ONE OR MORE PHALANGES OF FOOT 06/19/2012 NELLY MILLING OPERATOR, MATEO R 826.0 CLOSED FRACTURE OF ONE OR MORE PHALANGES OF FOOT 06/19/2012 NELLY MILLING OPERATOR, MATEO R 826.0 CLOSED FRACTURE OF ONE OR MORE PHALANGES OF FOOT 06/19/2012 NELLY MILLING OPERATOR, MATEO R 826.0 CLOSED FRACTURE OF ONE OR MORE PHALANGES OF FOOT 06/19/2012 NELLY MILLING OPERATOR, MATEO R 826.0 CLOSED FRACTURE OF ONE OR MORE PHALANGES OF FOOT 06/19/2012 NELLY MILLING OPERATOR, MATEO R 826.0 CLOSED FRACTURE OF ONE OR MORE PHALANGES OF FOOT 07/19/2012 296.30 MO DEPRESSIVE RECURRENT UNSPECIFIED 07/19/2012 300.23 AN SOCIAL PHOBIA 07/19/2012 296.30 MO DEPRESSIVE RECURRENT UNSPECIFIED 07/19/2012 300.23 AN SOCIAL PHOBIA 07/19/2012 296.30 MO DEPRESSIVE RECURRENT UNSPECIFIED 07/19/2012 300.23 AN SOCIAL PHOBIA 07/19/2012 296.30 MO DEPRESSIVE RECURRENT UNSPECIFIED 07/19/2012 300.23 AN SOCIAL PHOBIA 07/19/2012 296.30 MO DEPRESSIVE RECURRENT UNSPECIFIED 07/19/2012 300.23 AN SOCIAL PHOBIA 07/19/2012 296.30 MO DEPRESSIVE RECURRENT UNSPECIFIED 07/19/2012 300.23 AN SOCIAL PHOBIA 07/19/2012 296.30 MO DEPRESSIVE RECURRENT UNSPECIFIED 07/19/2012 300.23 AN SOCIAL PHOBIA 07/19/2012 PHYLLIS MARTINEZ DO F 296.30 MO DEPRESSIVE RECURRENT UNSPECIFIED 07/19/2012 PHYLLIS MARTINEZ DO F 300.23 AN SOCIAL PHOBIA 07/19/2012 NELLY BERGN, MATEO R 296.30 MO DEPRESSIVE RECURRENT UNSPECIFIED 07/19/2012 NELLY MILLING OPERATOR, MATEO R 300.23 AN SOCIAL PHOBIA 07/19/2012 NELLY MILLING OPERATOR, MATEO R 296.30 MO DEPRESSIVE RECURRENT UNSPECIFIED 07/19/2012 NELLY MILLING OPERATOR, MATEO R 300.23 AN SOCIAL PHOBIA 07/19/2012 NELLY MILLING OPERATOR, MATEO R 296.30 MO DEPRESSIVE RECURRENT UNSPECIFIED 07/19/2012 NELLY MILLING OPERATOR, MATEO R 300.23 AN SOCIAL PHOBIA 07/19/2012 NELLY MILLING OPERATOR, MATEO R 296.30 MO DEPRESSIVE RECURRENT UNSPECIFIED 07/19/2012 NELLY BERGN, MATEO R 300.23 AN SOCIAL PHOBIA 07/19/2012 NELLY URRUTIA, MATEO R 296.30 MO DEPRESSIVE RECURRENT UNSPECIFIED 07/19/2012 NELLY URRUTIA, MATEO R 300.23 AN SOCIAL PHOBIA 08/01/2012 914.4 INSECT BITE 08/01/2012 914.4 INSECT BITE 08/01/2012 914.4 INSECT BITE 08/01/2012 914.4 INSECT BITE 08/01/2012 914.4 INSECT BITE 08/01/2012 914.4 INSECT BITE 08/01/2012 PHYLLIS MARTINEZ DO F 914.4 INSECT BITE 08/01/2012 NELLY BERGN, MATEO R 914.4 INSECT BITE 08/01/2012 NELLY BERGN, MATEO R 914.4 INSECT BITE 08/01/2012 NELLY URRUTIA, MATEO R 914.4 INSECT BITE 08/01/2012 NELLY URRUTIA, MATEO R 914.4 INSECT BITE 08/01/2012 NELLY URRUTIA, MATEO R 914.4 INSECT BITE 09/24/2012 789.03 ABDOMINAL PAIN RIGHT LOWER QUADRANT 09/24/2012 789.03 ABDOMINAL PAIN RIGHT LOWER QUADRANT 09/24/2012 789.03 ABDOMINAL PAIN RIGHT LOWER QUADRANT 09/24/2012 PHYLLIS MARTINEZ DO F 789.03 ABDOMINAL PAIN RIGHT LOWER QUADRANT 09/24/2012 NELLY URRUTIA, MATEO R 789.03 ABDOMINAL PAIN RIGHT LOWER QUADRANT 09/24/2012 NELLY URRUTIA, MATEO R 789.03 ABDOMINAL PAIN RIGHT LOWER QUADRANT 09/24/2012 NELLY URRUTIA, MATEO R 789.03 ABDOMINAL PAIN RIGHT LOWER QUADRANT 09/24/2012 NELLY URRUTIA, MATEO R 789.03 ABDOMINAL PAIN RIGHT LOWER QUADRANT 09/24/2012 NELLY URRUTIA, MATEO R 789.03 ABDOMINAL PAIN RIGHT LOWER QUADRANT 11/06/2012 780.4 DIZZINESS AND GIDDINESS 11/06/2012 788.41 URINARY FREQUENCY 11/06/2012 780.4 DIZZINESS AND GIDDINESS 11/06/2012 788.41 URINARY FREQUENCY 11/06/2012 PHYLLIS MARTINEZ DO F 780.4 DIZZINESS AND GIDDINESS 11/06/2012 PHYLLIS MARTINEZ DO 788.41 URINARY FREQUENCY 11/06/2012 NELLY URRUTIA MATEO R 780.4 DIZZINESS AND GIDDINESS 11/06/2012 NELLY URRUTIA, MATEO R 788.41 URINARY FREQUENCY 11/06/2012 SB VILLEGAS APRNINA R 780.4 DIZZINESS AND GIDDINESS 11/06/2012 NELLY URRUTIA, MATEO R 788.41 URINARY FREQUENCY 11/06/2012 NELLY BERGN, MATEO R 780.4 DIZZINESS AND GIDDINESS 11/06/2012 NELLY BERGN, MATEO R 788.41 URINARY FREQUENCY 11/06/2012 NELLY BERGN, MATEO R 780.4 DIZZINESS AND GIDDINESS 11/06/2012 NELLY BERGN, MATEO R 788.41 URINARY FREQUENCY 11/06/2012 NELLY BERGN, MATEO R 780.4 DIZZINESS AND GIDDINESS 11/06/2012 NELLY URRUTIA, MATEO R 788.41 URINARY FREQUENCY 05/13/2014 MATEO VILLEGAS APRN R 110.4 DERMATOPHYTOSIS OF FOOT 05/13/2014 SB VILLEGAS APRNINA R V70.0 ROUTINE GENERAL MEDICAL EXAMINATION AT A HEALTH CARE FACILITY Procedures Code [place] [address] PSYCH DIAGNOSTIC EVALUATION 04/26/2012 41877 PSYTX PT&/FAMILY 45 MINUTES 05/29/2012 67333 XRAY FOOT LEFT 2 VIEWS 06/19/2012 71983 PSYTX PT&/FAMILY 45 MINUTES 07/18/2012 11632 PSYTX PT&/FAMILY 45 MINUTES 08/02/2012 83084 PSYTX PT&/FAMILY 45 MINUTES 09/03/2012 74569 EKG, TRACING (IN-HOUSE) 09/17/2012 68266 ROUTINE VENIPUNCTURE 09/18/2012 44244 RISPERIDONE AND METABOLITE 09/18/2012 87046 GLUCOSE 09/18/2012 24480 LIPID PANEL 09/18/2012 67570 ROUTINE VENIPUNCTURE 11/06/2012 29004 UA W/ CULTURE IF INDICATED 11/06/2012 78290 CBC 11/06/2012 52816 CMP 11/06/2012 [id number] GFR CALC (RESULT ONLY) 11/06/2012 39274 XRAY LUMBAR SPINE 2 OR 3 VIEWS 03/17/2013 44964 ROUTINE VENIPUNCTURE 06/12/2014 00507 CBC 06/12/2014 [id number] GFR CALC (RESULT ONLY) 06/12/2014 82042 CMP 06/12/2014 89275 LIPID PANEL 06/12/2014 45790 TSH 06/12/2014 Results Test Result Range TSH - 05/24/17 08:29 TSH 1.80 mIU/L NRG Encounters ACCT No. Visit Date/Time Discharge Status Pt. Type Provider Facility Loc./Unit Complaint [id number] 09/24/2018 11:20:00 09/24/2018 23:59:59 CLS Outpatient [facility] [id number] 05/24/2017 08:20:00 Document Registration [id number] 06/12/2014 08:04:00 06/12/2014 23:59:59 CLS Outpatient MATEO VILLEGAS APRN [id number] 2014 15:11:00 2014 23:59:59 CLS Outpatient MATEO VILLEGAS APRN [id number] 11/19/2013 14:16:00 11/19/2013 23:59:59 CLS Outpatient MATEO VILLEGAS APRN [id number] 03/17/2013 10:34:00 03/17/2013 23:59:59 CLS Outpatient MATEO VILLEGAS APRN [id number] 03/14/2013 13:21:00 03/14/2013 23:59:59 CLS Outpatient MATEO VILLEGAS APRN [id number] 12/02/2012 10:51:00 12/02/2012 23:59:59 CLS Outpatient PHYLLIS MARTINEZ DO [id number] 06/19/2012 10:51:00 06/19/2012 23:59:59 CLS Outpatient [id number] 05/24/2012 14:52:00 05/24/2012 23:59:59 CLS Outpatient [id number] 04/23/2012 09:46:00 04/23/2012 23:59:59 CLS Outpatient [id number] 11/06/2012 08:51:00 Document Registration [id number] 11/06/2012 08:51:00 Document Registration [id number] 10/04/2012 12:48:00 Document Registration [id number] 09/02/2012 14:48:00 Document Registration [id number] 08/02/2012 14:43:00 Document Registration [id number] 08/01/2012 14:22:00 Document Registration [id number] 07/19/2012 16:18:00 Document Registration [id number] 07/16/2012 15:49:00 Document Registration
[2018-10-21] MEDS ORDERED: IBUPROFEN 800 MG (MOTRIN) TAB PO ONE (14:45)
--- NOTE | 2018-10-21 14:46 | ED Lower Extremity ---
General Stated Complaint: L FOOT INJ Source: patient Exam Limitations: no limitations History of Present Illness Date Seen by Provider: Oct 21, 2018 Time Seen by Provider: 14:44 Initial Comments To ER with reports of left foot injury. She tripped and fell earlier today and now has pain to the fourth and fifth toes on the lateral aspect of the left foot Onset: just prior to arrival Severity: moderate Pain/Injury Location: left foot Method of Injury: fell Modifying Factors: Worse With Movement Allergies and Home Medications Allergies Coded Allergies: Sulfa (Sulfonamide Antibiotics) (Unverified Allergy, Mild, 12/19/08) Home Medications Clindamycin HCl 300 Mg Capsule, 300 MG PO QID Prescribed by: ANNA MARIE TEMPLE on 05/03/16 1703 Ferrous Sulfate, Dried 159 Mg Tablet.er, Unknown Dose PO DAILY, (Reported) Hydrocodone Bit/Acetaminophen 1 Each Tablet, 1-2 EACH PO Q6H PRN Prescribed by: HIRA ALCALA on 08/02/11 1854 Methylprednisolone 4 Mg Tab.ds.pk, 4 MG PO UD Prescribed by: ANNA MARIE TEMPLE on 05/03/16 1703 Naltrexone HCl/Bupropion HCl 1 Each Tablet.er, 2 EACH PO BID, (Reported) Patient Home Medication List Home Medication List Reviewed: Yes Review of Systems Constitutional: see HPI EENTM: see HPI Respiratory: no symptoms reported Genitourinary: no symptoms reported Musculoskeletal: see HPI Skin: no symptoms reported Psychiatric/Neurological: No Symptoms Reported Past Dlgquqf-Lnbclk-Hatlpf Hx Patient Social History Recent Foreign Travel: No Contact w/Someone Who Travel: No Recent Hopitalizations: No Immunizations Up To Date PED Vaccines UTD: Yes Date of Influenza Vaccine: Dec 17, 2010 Seasonal Allergies Seasonal Allergies: No Past Medical History Section, Orthopedic, Vascular Surgery Reproductive Disorders: No Sexually Transmitted Disease: No Ulcer Arthritis Anxiety, Depression Physical Exam Vital Signs Capillary Refill : Height, Weight, BMI Height: 5'11" Weight: 240lbs. oz. 108.373538ew; BMI Method:Stated General Appearance: WD/WN, no apparent distress HEENT: PERRL/EOMI, normal ENT inspection Respiratory: no respiratory distress, no accessory muscle use Hips: bilateral hip non-tender, bilateral hip normal inspection, bilateral hip normal range of motion Legs: bilateral leg non-tender, bilateral leg normal inspection, bilateral leg normal range of motion Knees: bilateral knee non-tender, bilateral knee normal inspection, bilateral knee normal range of motion Ankles: bilateral ankle non-tender, bilateral ankle normal inspection, bilateral ankle normal range of motion Feet: left foot pain, left foot soft tissue tenderness, left foot other (deformity to the fourth toe ecchymosis) Neurologic/Psychiatric: alert, normal mood/affect, oriented x 3 Skin: normal color, warm/dry Progress/Results/Core Measures Results/Orders My Orders Orders - CANDIDO LIMA APRN Ibuprofen Tablet (Motrin Tablet) (10/21/18 14:45) Foot, Left, 3 Views (10/21/18 14:42) Medications Given in ED Current Medications Medications Dose Ordered Sig/Iesha Route Start Time Stop Time Status Last Admin Dose Admin Ibuprofen 800 mg ONCE ONCE PO 10/21/18 14:45 10/21/18 14:46 DC 10/21/18 14:45 800 MG Departure Impression Primary Impression: Toe sprain Qualified Codes: S93.509A - Unspecified sprain of unspecified toe(s), initial encounter Disposition: 01 HOME, SELF-CARE Condition: Stable Departure-Patient Inst. Decision time for Depature: 14:56 Referrals: [facility] (PCP/Family) Primary Care Physician Patient Instructions: Toe Injury Add. Discharge Instructions: 1. Ice pack to the toe as much as possible today at 30 minute intervals. Ibuprofen and Tylenol for pain. Return to ER for any worsening symptoms or other concerns. Follow-up with your doctor next week. CANDIDO LIMA APRN Oct 21, 2018 14:45
--- NOTE | 2018-10-21 15:26 | NUR ---
pt related earlier. she did not want any narcotic pain meds.
--- NOTE | 2018-10-21 15:28 | Diagnostic Imaging Report ---
PATIENT HISTORY: Left foot pain, fall at home. TECHNIQUE: Three views of the left foot. COMPARISON: None. FINDINGS: No acute fracture or dislocation is seen in the left foot. Alignment appears normal. Joint spaces are preserved. An os peroneum and an accessory navicular are noted. There is mild cortical thickening of the second, and to a lesser extent the third, metatarsal shafts. This could be from remote trauma or stress reaction. Mild deformity in the region of the Lisfranc ligament is suggestive of a chronic injury. No fracture line is seen. There is enthesopathy at the calcaneus. IMPRESSION: 1. Mild cortical thickening of the second metatarsal shaft and cortical irregularity in the region of the Lisfranc ligament are thought to be from remote trauma. No acute osseous abnormality is seen in the left foot. Dictated by: Dictated on workstation # [id number]
[2018-10-21 15:46] VITALS: BP 147/103
--- NOTE | 2018-10-21 15:46 | NUR ---
d/c instructions to pt. told to read all papers. no scripts given. pt left ambulatory by self. pt knows f/u. i went over the handtyped by dr information on the chart. pt had no iv. pt requested some type of wrap. v/o dr tape last three toes together. i did that to pt last 3 toes on pinky side left foot.
== END 2018-10-21 15:46 | disposition home or self-care (01) ==
LOC: EDUNIT# 14:32 → ER 14:33
DX: S93.505A Unspecified sprain of left lesser toe(s), initial encounter (principal); F41.9 Anxiety disorder, unspecified; F32.9 Major depressive disorder, single episode, unspecified; Z88.2 Allergy status to sulfonamides; Z79.52 Long term (current) use of systemic steroids; W01.0XXA Fall on same level from slipping, tripping and stumbling without subsequent striking against object, initial encounter
CPT/HCPCS: 73630

== ENCOUNTER 2019-02-03 20:29 | Emergency (ER) | payer SELFPAY ==
[~2019-02-03] VITALS: Ht 193 cm; Wt 91.4 kg
[2019-02-03] MEDS ORDERED: LACTATED RINGERS 1,000 ML IV ONE (20:35)
[2019-02-03 20:44] LABS: BASOPHILS # (AUTO) 0.1 10^3/uL (0.0-0.1); BASOPHILS % (AUTO) 1 % (0-10); EOSINOPHILS # (AUTO) 0.2 10^3/uL (0.0-0.3); EOSINOPHILS % (AUTO) 2 % (0-10); HEMATOCRIT 36 % (35-52); LYMPHOCYTES # (AUTO) 3.4 X 10^3 (1.0-4.0); LYMPHOCYTES % (AUTO) 38 % (12-44); MEAN CORPUSCULAR HEMOGLOBIN 23 PG (25-34); MEAN CORPUSCULAR HGB CONC 31 G/DL (32-36); MEAN CORPUSCULAR VOLUME 75 FL (80-99); MEAN PLATELET VOLUME 9.7 FL (7.4-10.4); MONOCYTES # (AUTO) 0.6 X 10^3 (0.0-1.0); MONOCYTES % (AUTO) 6 % (0-12); NEUTROPHILS # (AUTO) 4.7 X 10^3 (1.8-7.8); NEUTROPHILS % (AUTO) 53 % (42-75); PLATELET COUNT 370 10^3/uL (130-400); RED CELL DISTRIBUTION WIDTH 17.5 % (10.0-14.5); WHITE BLOOD COUNT 8.8 10^3/uL (4.3-11.0)
[2019-02-03] MEDS ORDERED: PANT20TA3 (20:48)
--- NOTE | 2019-02-03 20:50 | NUR ---
PT DENIES BEING ABLE TO VOID AT THIS TIME.
[2019-02-03 20:58] LABS: ALANINE AMINOTRANSFERASE 14 U/L (0-55); ALBUMIN 4.2 GM/DL (3.2-4.5); ALKALINE PHOSPHATASE 65 U/L (40-136); BILIRUBIN,TOTAL 0.3 MG/DL (0.1-1.0); BUN/CREATININE RATIO 10; CARBON DIOXIDE 22 MMOL/L (21-32); CHLORIDE 105 MMOL/L (98-107); CREATININE SERUM 0.92 MG/DL (0.60-1.30); GFR ESTIMATED > 60; GLUCOSE 98 MG/DL (70-105); MAGNESIUM 1.8 MG/DL (1.6-2.4); POTASSIUM 3.8 MMOL/L (3.6-5.0); SODIUM 140 MMOL/L (135-145)
[2019-02-03] MEDS ORDERED: KETOROLAC 30 MG/ML VIAL IVP STA (21:12)
[2019-02-03] MEDS ORDERED: ONDANSETRON 4 MG/2 ML (SDV) Z0FRAN IVP ONE (21:15)
--- NOTE | 2019-02-03 21:15 | NUR ---
PT AMBULATED TO RESTROOM WITHOUT DIFFICULTY.
--- NOTE | 2019-02-03 21:22 | ED GI ---
General Chief Complaint: Dizziness/Syncope Stated Complaint: N/V SYNCOPE Nursing Triage Note: N/V/ SYNCOPE Sepsis Screen: No Definite Risk Source of Information: Patient, EMS Exam Limitations: No Limitations (MARELY SAUNDERS) History of Present Illness Date Seen by Provider: Feb 03, 2019 Time Seen by Provider: 20:30 Initial Comments This is a 49 y/o pt who presents to the ED with few episodes of N/V and 3 episodes of syncope. Pt also has been having episodes of diarrhea, though she states she has IBS and her current episodes of diarrhea is not different from her usual IBS exacerbations. Pt denies hematemesis but does report blood loss w/ BMs due to her IBS and states she take Iron supplements. Pt states she "passed out" 3 times tonight, states she fell on her elbows from standing position for one of the episodes but for the others she just fell to her side from sitting position. Denies hitting her head. Denies neck pain. Denies preceding sx to her syncopal episodes and describes the feeling as "room spinning and then dark spots in my vision". Does report headache that wraps around her head like a headband and is accompanied by photophobia. Denies any abd pain, flu/cold-like sx, or any other sx at this time. Pt does report hx of similar episodes 3 wks ago and reports "I wish I could just go home, and just ride it out like last time, last time it just went away on its own". Pt was given 4 of Zofran prior to arrival but she has not tried anything else for her sx. Pt has hx of GERD and takes Protonix. Also has hx of arthritis but denies any other major PMH. Timing/Duration: 1 Day Severity/Quality: Other (No abd pain) Location: Other (No abd pain) Activities at Onset: None Modifying Factors: Improves With Other (antiemetics) Associated Symptoms: Nausea/Vomiting, Shortness of Air (MARELY SAUNDERS) Allergies and Home Medications Allergies Coded Allergies: Sulfa (Sulfonamide Antibiotics) (Unverified Allergy, Mild, 12/19/08) Home Medications Ferrous Sulfate, Dried 159 Mg Tablet.er, Unknown Dose PO DAILY, (Reported) Patient Home Medication List Home Medication List Reviewed: Yes (HIRA ALCALA MD) Review of Systems Review of Systems Constitutional: No chills, No diaphoresis, No fever EENTM: No Symptoms Reported Respiratory: Denies Cough; Shortness of Air Cardiovascular: Denies Chest Pain, Denies Lightheadedness, Denies Palpitations; Syncope Gastrointestinal: Denies Abdominal Pain, Denies Constipated; Diarrhea (IBS), Nausea, Vomiting Genitourinary: No Symptoms Reported Musculoskeletal: No back pain, No neck pain Skin: No pruritus, No rash Psychiatric/Neurological: Headache; Denies Numbness Hematologic/Lymphatic: Anemia (Iron deficiency anemia) (MARELY SAUNDERS [facility]) All Other Systems Reviewed Negative Unless Noted: Yes (HIRA ALCALA MD) Past Soabyre-Ttvnnp-Jmzzmc Hx Past Med/Social Hx: Reviewed Nursing Past Med/Soc Hx (HIRA ALCALA MD) Patient Social History Alcohol Use: Denies Use Recreational Drug Use: No Smoking Status: Former Smoker Type Used: Cigarettes Recent Foreign Travel: No Contact w/Someone Who Travel: No Recent Infectious Disease Expo: No Recent Hopitalizations: No (EKATERINA SAUNDERS [employer] [facility]) Immunizations Up To Date Tetanus Booster (TDap): Unknown PED Vaccines UTD: Yes Date of Influenza Vaccine: Dec 17, 2010 (JAM SAUNDERSSHERIF [employer] [facility]) Seasonal Allergies Seasonal Allergies: No ([facility] Past Medical History Surgeries: Yes (C-SECTIONS, VEIN SURG IN LEGS, RIGHT SHOULDER, DXLS) Section, Orthopedic, Vascular Surgery Respiratory: No Cardiac: No Neurological: No : No Reproductive Disorders: No Sexually Transmitted Disease: No Genitourinary: No Gastrointestinal: Yes Gastroesophageal Reflux, Ulcer, Irritable Bowel Musculoskeletal: Yes Arthritis Endocrine: No HEENT: No Cancer: No Psychosocial: Yes Anxiety, Depression Integumentary: No Blood Disorders: Yes (ANEMIA) (EKTAERINA SAUNDERS [employer] [facility]) Family Medical History Reviewed Nursing Family Hx (HIRA ALCALA MD) Physical Exam Vital Signs Vital Signs - First Documented 02/03/19 20:30 Temp 36.3 Pulse 78 Resp 18 B/P (MAP) 128/65 (86) Pulse Ox 98 O2 Delivery Room Air (HIRA ALCALA MD) Vital Signs Capillary Refill : Less Than 3 Seconds ([facility]) Height/Weight/BMI Height: 5'11.00" Weight: 200lbs. oz. 90.566225rk; 24.00 BMI Method:Stated General Appearance: WD/WN, no apparent distress HEENT: PERRL/EOMI, normal ENT inspection, pharynx normal Neck: non-tender, full range of motion, supple, normal inspection Respiratory: chest non-tender, lungs clear, normal breath sounds, no respiratory distress, no accessory muscle use Cardiovascular: normal peripheral pulses, regular rate, rhythm, no edema, no gallop, no JVD, no murmur Gastrointestinal: normal bowel sounds, non tender, soft, no organomegaly, no pulsatile mass Extremities: normal range of motion, non-tender, normal inspection, normal capillary refill Back: normal inspection, no CVA tenderness, no vertebral tenderness; No muscle spasm Neurologic/Psychiatric: melter operator II-XII nml as tested, no motor/sensory deficits, alert, normal mood/affect, oriented x 3 Skin: normal color, warm/dry Lymphatic: no adenopathy (MARELY SAUNDERS [facility]) General Appearance: WD/WN, no apparent distress HEENT: PERRL/EOMI, pharynx normal Neck: full range of motion, supple Respiratory: lungs clear, normal breath sounds Cardiovascular: regular rate, rhythm, no murmur Gastrointestinal: non tender, soft Extremities: non-tender, normal inspection Neurologic/Psychiatric: alert, oriented x 3 Skin: normal color, warm/dry (HIRA ALCALA MD) Progress/Results/Core Measures Results/Orders Lab Results Laboratory Tests Test 02/03/19 20:32 02/03/19 21:15 Range/Units White Blood Count 8.8 4.3-11.0 10^3/uL Red Blood Count 4.76 4.35-5.85 10^6/uL Hemoglobin 11.0 L 11.5-16.0 G/DL Hematocrit 36 35-52 % Mean Corpuscular Volume 75 L 80-99 FL Mean Corpuscular Hemoglobin 23 L 25-34 PG Mean Corpuscular Hemoglobin Concent 31 L 32-36 G/DL Red Cell Distribution Width 17.5 H 10.0-14.5 % Platelet Count 370 130-400 10^3/uL Mean Platelet Volume 9.7 7.4-10.4 FL Neutrophils (%) (Auto) 53 42-75 % Lymphocytes (%) (Auto) 38 12-44 % Monocytes (%) (Auto) 6 0-12 % Eosinophils (%) (Auto) 2 0-10 % Basophils (%) (Auto) 1 0-10 % Neutrophils # (Auto) 4.7 1.8-7.8 X 10^3 Lymphocytes # (Auto) 3.4 1.0-4.0 X 10^3 Monocytes # (Auto) 0.6 0.0-1.0 X 10^3 Eosinophils # (Auto) 0.2 0.0-0.3 10^3/uL Basophils # (Auto) 0.1 0.0-0.1 10^3/uL Sodium Level 140 135-145 MMOL/L Potassium Level 3.8 3.6-5.0 MMOL/L Chloride Level 105 98-107 MMOL/L Carbon Dioxide Level 22 21-32 MMOL/L Anion Gap 13 5-14 MMOL/L Blood Urea Nitrogen 9 7-18 MG/DL Creatinine 0.92 0.60-1.30 MG/DL Estimat Glomerular Filtration Rate > 60 BUN/Creatinine Ratio 10 Glucose Level 98 70-105 MG/DL Calcium Level 10.0 8.5-10.1 MG/DL Corrected Calcium 9.8 8.5-10.1 MG/DL Magnesium Level 1.8 1.6-2.4 MG/DL Total Bilirubin 0.3 0.1-1.0 MG/DL Aspartate Amino Transf (AST/SGOT) 16 5-34 U/L Alanine Aminotransferase (ALT/SGPT) 14 0-55 U/L Alkaline Phosphatase 65 40-136 U/L Total Protein 7.0 6.4-8.2 GM/DL Albumin 4.2 3.2-4.5 GM/DL Urine Color YELLOW Urine Clarity CLEAR Urine pH 5.5 5-9 Urine Specific [place] <=1.005 1.016-1.022 Urine Protein NEGATIVE NEGATIVE Urine Glucose (UA) NEGATIVE NEGATIVE Urine Ketones NEGATIVE NEGATIVE Urine Nitrite NEGATIVE NEGATIVE Urine Bilirubin NEGATIVE NEGATIVE Urine Urobilinogen 0.2 < = 1.0 MG/DL Urine Leukocyte Esterase 1+ H NEGATIVE Urine RBC (Auto) NEGATIVE NEGATIVE Urine RBC NONE /HPF Urine WBC 5-10 H /HPF Urine Squamous Epithelial Cells 10-25 H /HPF Urine Crystals NONE /LPF Urine Bacteria FEW H /HPF Urine Casts NONE /LPF Urine Mucus NEGATIVE /LPF Urine Culture Indicated YES (HIRA ALCALA MD) My Orders Orders - HIRA ALCALA MD Cbc With Automated Diff (02/03/19 20:35) Comprehensive Metabolic Panel (02/03/19 20:35) Magnesium (02/03/19 20:35) Ua Culture If Indicated (02/03/19 20:35) Ed Iv/Invasive Line Start (02/03/19 20:35) Lactated Ringers (Lr 1000 Ml Iv Solution (02/03/19 20:35) Ketorolac Injection (Toradol Injection) (02/03/19 21:12) Ondansetron Injection (Zofran Injectio (02/03/19 21:15) Urine Culture (02/03/19 21:15) (HIRA ALCALA MD) Medications Given in ED Current Medications Medications Dose Ordered Sig/Iesha Route Start Time Stop Time Status Last Admin Dose Admin Lactated Ringer's 1,000 ml @ 0 mls/hr Q0M ONCE IV 02/03/19 20:35 02/03/19 20:37 DC 02/03/19 20:39 0 MLS/HR Ondansetron HCl 4 mg ONCE ONCE IVP 02/03/19 21:15 02/03/19 21:17 DC 02/03/19 21:29 4 MG (HIRA ALCALA MD) Vital Signs/I&O 02/03/19 20:30 Temp 36.3 Pulse 78 Resp 18 B/P (MAP) 128/65 (86) Pulse Ox 98 O2 Delivery Room Air (HIRA ALCALA MD) 2 Blood Pressure Mean: 86 POS Progress Progress Note : Time: 20:30 Progress Note Seen and Evaluated. DDx include viral gastroenteritis, IBS exacerbation, dehydration, vasovagal syncope, situational syncope. Will order CBC, CMP w/ Mg, and UA and 1L of IVF LR. 2100: Reevaluated. pt feeling somewhat better, still nauseated, has ISIDRO. Will give Toradol for ISIDRO and more Zofran for nausea. Will monitor pt. (MARELY SAUNDERS [facility]) Progress Note : Progress Note I have seen and evaluated the patient and agree with above except as indicated I have directed the plan of care. Patient is here with her syncopal episode a few times as well as vomiting and headache. She states that she gets these once or twice a month and states that she does have migraines. She typically just sleeps her way through these 100 day or 2 but she had a very concerned boyfriend who was concerned and wanted her evaluated and also her 7-year-old child called 911. Labs, IV fluids, Zofran and Toradol given. Monitor patient. 2155: Overall doing much better and states that she feels that she can go home safely. I discussed with her about follow-up with her doctor regarding her migraine headaches and she states she will. I will send a copy of the chart to the clinic. Discharged home with return precautions. Patient verbalize understanding instructions and agreement with plan. (HIRA ALCALA MD) Departure Impression Primary Impression: Migraine Qualified Codes: G43.909 - Migraine, unspecified, not intractable, without status migrainosus Additional Impression: Nausea and vomiting Qualified Codes: R11.2 - Nausea with vomiting, unspecified Disposition: 01 HOME, SELF-CARE Condition: Stable Departure-Patient Inst. Decision time for Depature: 21:59 (HIRA ALCALA MD) Referrals: [facility] [place] (PCP/Family) Primary Care Physician Patient Instructions: Syncope (Fainting) (DC), Nausea and Vomiting, Adult (DC), Acute Abdomen (Belly Pain), Migraine Headache (DC) Add. Discharge Instructions: All discharge instructions reviewed with patient and/or family. Voiced understanding. Drink plenty of fluids. You may take ibuprofen and/or Tylenol as needed for pain. Follow-up with her doctor and discussed with them regarding her migraine headaches as you may have options for better control. Resume normal diet when tolerated. Return for worsening, fever, vomiting, weakness, breathing problems o r other concerns as needed. Work/School Note: Work Release Form Date Seen in the Emergency Department: Feb 03, 2019 Return to Work: Feb 05, 2019 Restrictions: No Restrictions Copy Copies To 1: [facility] Feb 03, 2019 21:22 HIRA SPIVEY MD Feb 03, 2019 22:00 POS
[2019-02-03 21:31] LABS: BILIRUBIN,URINE NEGATIVE (NEGATIVE); CLARITY,URINE CLEAR; COLOR,URINE YELLOW; GLUCOSE, URINE (UA) NEGATIVE (NEGATIVE); KETONES,URINE NEGATIVE (NEGATIVE); LEUKOCYTE ESTERASE ,URINE 1+ (NEGATIVE); NITRITE,URINE NEGATIVE (NEGATIVE); PH,URINE 5.5 (5-9); PROTEIN,URINE NEGATIVE (NEGATIVE)
[2019-02-03 21:38] LABS: BACTERIA,URINE FEW /HPF
[2019-02-03 22:04] VITALS: BP 111/69
== END 2019-02-03 22:07 | disposition home or self-care (01) ==
LOC: EDUNIT# 20:29 → ER 20:30
DX: G43.909 Migraine, unspecified, not intractable, without status migrainosus (principal); K21.9 Gastro-esophageal reflux disease without esophagitis; K58.9 Irritable bowel syndrome, unspecified; F32.9 Major depressive disorder, single episode, unspecified; F41.9 Anxiety disorder, unspecified; D64.9 Anemia, unspecified; Z88.2 Allergy status to sulfonamides; Z87.891 Personal history of nicotine dependence
CPT/HCPCS: 36415; 80053; 81000; 83735; 85025; 87088

== ENCOUNTER 2021-08-01 10:35 | Emergency (ER) | payer SELFPAY ==
[~2021-08-01 10:35] MED LIST changes: +CLIN-144 PO; -CLIN300C11 PO; +PANT20TA18
--- NOTE | 2021-08-01 10:59 | ED Back Pain ---
General Chief Complaint: Back Problems Stated Complaint: BACK PAIN Source of Information: Patient Exam Limitations: No Limitations History of Present Illness Date Seen by Provider: August 01, 2021 Time Seen by Provider: 10:45 Initial Comments Patient is a 51-year-old female who presents to the emergency department today with a chief complaint of low back pain onset of last week, 5 days ago. Patient states the pain is across her low back just above the posterior superior anterior iliac crest bilaterally. She denies any trauma, falls, heavy lifting, straining. She states standing from a seated position makes her pain much worse. But generally all movements are causing discomfort. She is taken Tylenol and ibuprofen and used heat and ice without relief. She complains of urinary frequency without dysuria. She complains of stress incontinence. No actual loss of bowel or bladder function. She denies any radiation of the pain down into her legs. No numbness, weakness or tingling. No recent fevers or chills. No rashes. She does have a history of sciatica on the right. She alwa ys has trouble with her right leg. She does have lymphedema in her bilateral lower extremities right greater than left as well. All other review of systems reviewed and negative except as stated. Timing/Duration: 4-5 Days Severity: Severe ("9") Pain/Injury Location: Back (low back) Method of Injury: Unknown Modifying Factors: Improves With Immobilization Associated Symptoms: lower back pain Allergies and Home Medications Allergies Coded Allergies: Sulfa (Sulfonamide Antibiotics) (Unverified Allergy, Mild, 12/19/08) Latex, Natural Rubber (Verified Allergy, Unknown, Rash, 08/01/21) risperidone (Verified Allergy, Unknown, Rash, 08/01/21) sulfamethoxazole (Verified Allergy, Unknown, Rash, 08/01/21) trimethoprim (Verified Allergy, Unknown, Rash, 08/01/21) Patient Home Medication List Home Medication List Reviewed: Yes Ferrous Sulfate, Dried (Iron) 159 Mg Tablet.er, Unknown Dose PO DAILY, (Reported) Entered as Reported by: JANETTE COVINGTON on 05/03/16 1606 Pantoprazole Sodium (Pantoprazole Sodium) 20 Mg Tablet., (Reported) Entered as Reported by: BIMAL BERMAN on 02/03/192047 Review of Systems Constitutional: see HPI EENTM: no symptoms reported Respiratory: no symptoms reported Cardiovascular: no symptoms reported Gastrointestinal: no symptoms reported Genitourinary: no symptoms reported : No Musculoskeletal: back pain Skin: no symptoms reported Psychiatric/Neurological: No Symptoms Reported All Other Systems Reviewed Negative Unless Noted: Yes Past Tsppqdy-Nrvncy-Aiqcnn Hx Patient Social History Tobacco Use?: No Smoking Status: Former Smoker Use of E-Cig and/or Vaping dev: No Substance use?: No Alcohol Use?: Yes Alcohol type: Wine Alcohol Frequency: Rarely Pt feels they are or have been: No Immunizations Up To Date Tetanus Booster (TDap): Unknown PED Vaccines UTD: Yes First/Initial COVID19 Vaccinat: 2020 Second COVID19 Vaccination Augustus: 2020 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: [employer] Seasonal Allergies Seasonal Allergies: No Past Medical History Surgery/Hospitalization HX: ARTHRITIS, DEPRESSION Surgeries: Yes (C-SECTIONS, VEIN SURG IN LEGS, RIGHT SHOULDER, DXLS) Section, Orthopedic, Vascular Surgery Respiratory: No Cardiac: No Neurological: No Reproductive Disorders: No Sexually Transmitted Disease: No Genitourinary: No Gastrointestinal: Yes Gastroesophageal Reflux, Ulcer, Irritable Bowel Musculoskeletal: Yes Arthritis Endocrine: No HEENT: No Cancer: No Psychosocial: Yes Anxiety, Depression Integumentary: No Blood Disorders: Yes (ANEMIA) Physical Exam Vital Signs Vital Signs - First Documented 08/01/21 10:42 Temp 36.8 Pulse 71 Resp 18 B/P (MAP) 146/92 (110) Capillary Refill : Height, Weight, BMI Height: 5'11.00" Weight: 200lbs. oz. 90.865380ml; 24.00 BMI Method:Stated General Appearance: No Apparent Distress, WD/WN HEENT: PERRL/EOMI Neck: Normal Inspection Cardiovascular: Regular Rate, Rhythm, Normal Peripheral Pulses Respiratory: Lungs Clear, Normal Breath Sounds, No Accessory Muscle Use, No Respiratory Distress Gastrointestinal: Soft, Tenderness (supropubic tenderness) Back: Normal Inspection, Vertebral Tenderness (T12/L1; no lower vertebral tenderness. tenderness to palpation left paraspinous lower lumbar area more than right) Extremity: Normal Capillary Refill, Normal Inspection, Normal Range of Motion, Non Tender, No Calf Tenderness, Swelling (RLE) Neurologic/Psychiatric: Alert, Oriented x3, No Motor/Sensory Deficits, Normal Mood/Affect, rod puller II-XII Norm as Tested, Other (normal dorsiflexion of the great toes bilat. Neg SLR bilat; no perineal numbness) Skin: Normal Color, Warm/Dry Progress/Results/Core Measures Results/Orders Lab Results Laboratory Tests Test 08/01/21 10:57 Range/Units Urine Color YELLOW Urine Clarity CLEAR Urine pH 6.0 5-9 Urine Specific [place] 1.010 L 1.016-1.022 Urine Protein NEGATIVE NEGATIVE Urine Glucose (UA) NEGATIVE NEGATIVE Urine Ketones NEGATIVE NEGATIVE Urine Nitrite NEGATIVE NEGATIVE Urine Bilirubin NEGATIVE NEGATIVE Urine Urobilinogen 0.2 < = 1.0 MG/DL Urine Leukocyte Esterase NEGATIVE NEGATIVE Urine RBC (Auto) 3+ H NEGATIVE Urine RBC 25-50 H /HPF Urine WBC NONE /HPF Urine Squamous Epithelial Cells RARE /HPF Urine Crystals NONE /LPF Urine Bacteria NEGATIVE /HPF Urine Casts NONE /LPF Urine Mucus NEGATIVE /LPF Urine Culture Indicated NO My Orders Orders - ZEB HARRIS MD Ua Culture If Indicated (08/01/21 10:54) Ketorolac Injection (Toradol Injection) (08/01/21 11:00) Orphenadrine Inj (Ed Only) (Norflex Inje (08/01/21 11:00) Medications Given in ED Current Medications Medications Dose Ordered Sig/Iesha Route Start Time Stop Time Status Last Admin Dose Admin Ketorolac Tromethamine 30 mg ONCE ONCE IM 08/01/21 11:00 08/01/21 11:01 DC 08/01/21 11:04 30 MG Orphenadrine Citrate 60 mg ONCE ONCE IM 08/01/21 11:00 08/01/21 11:01 DC 08/01/21 11:04 60 MG Vital Signs/I&O 08/01/21 10:42 Temp 36.8 Pulse 71 Resp 18 B/P (MAP) 146/92 (110) Progress Progress Note : Time: 12:13 Progress Note Patient evaluated, feeling much better. We discussed muscle relaxers, heat, continued Mobic and a couple of days of pain medication. She remains neurol ogically intact. No clinical or objective findings to warrant further studies from the emergency department she is comfortable with the plan of care. All questions are sought and answered Departure Impression Primary Impression: Low back pain Qualified Codes: M54.50 - Low back pain, unspecified Disposition: 01 HOME, SELF-CARE Condition: Stable Departure-Patient Inst. Decision time for Depature: 12:14 Referrals: [facility] (PCP/Family) Primary Care Physician Patient Instructions: Low Back Pain (DC) Add. Discharge Instructions: Drink any fluids to stay well-hydrated. Continue your Mobic daily. Continue to use heat and ice off-and-on to the sore areas of your back. I have prescribed you a muscle relaxer that you can take 3 times daily. This medication should not make you sleepy however the first time you take it do not drive until you assess how it makes you feel Also hydrocodone 1 every 6 hours with food as needed for pain. Return to the emergency room for any worsening back pain especially with numbness, weakness in your legs or loss of bowel or bladder function or any other emergent concerning symptoms. Please follow-up with your primary care provider. Scripts Hydrocodone/Acetaminophen (Hydrocodone-Acetamin 5-325 mg) 5 Mg-325 Mg Tablet 1 TAB PO Q6H PRN for PAIN-MODERATE (5-7), #8 TAB Prov: ZEB HARRIS MD 08/01/21 Methocarbamol (Methocarbamol) 500 Mg Tablet 1000 MG PO Q6-8HR for Back Pain, #20 TAB Prov: ZEB HARRIS MD 08/01/21 Copy Copies To 1: PHILLIP JACKSON KATHRYN M MD August 01, 2021 10:59
[2021-08-01] MEDS ORDERED: KETOROLAC 30 MG/ML VIAL IM ONE (11:00)
[2021-08-01] MEDS ORDERED: ORPHENADRINE 60 MG/2 ML (NORFLEX) AMP (ED ONLY) IM ONE (11:00)
[2021-08-01 11:02] LABS: BILIRUBIN,URINE NEGATIVE (NEGATIVE); CLARITY,URINE CLEAR; COLOR,URINE YELLOW; GLUCOSE, URINE (UA) NEGATIVE (NEGATIVE); KETONES,URINE NEGATIVE (NEGATIVE); LEUKOCYTE ESTERASE ,URINE NEGATIVE (NEGATIVE); NITRITE,URINE NEGATIVE (NEGATIVE); PROTEIN,URINE NEGATIVE (NEGATIVE)
[2021-08-01 11:08] LABS: BACTERIA,URINE NEGATIVE /HPF; RBC,URINE 25-50 /HPF
[2021-08-01 11:10] LABS: SQUAMOUS EPITHELIAL CELL,UR RARE /HPF
[2021-08-01] MEDS ORDERED: ACHD5005 PO (12:16)
[2021-08-01] MEDS ORDERED: METH-731 PO (12:16)
[2021-08-01 12:28] VITALS: BP 117/62
== END 2021-08-01 12:30 | disposition home or self-care (01) ==
LOC: EDUNIT# 10:35 → ER 10:36
DX: M54.50 Low back pain, unspecified (principal); Z87.891 Personal history of nicotine dependence
CPT/HCPCS: 81000; 99284

== ENCOUNTER → 2022-01-24 | Outpatient (CLI) | payer OTHER ==
[~2022-01-24] MED LIST changes: +METH-731 PO
[2022-01-24 08:25] LABS: HEMATOCRIT 41 % (35-52); HEMOGLOBIN 13.1 g/dL (11.5-16.0); MEAN CORPUSCULAR HEMOGLOBIN 27 pg (25-34); MEAN CORPUSCULAR HGB CONC 32 g/dL (32-36); MEAN CORPUSCULAR VOLUME 85 fL (80-99); MEAN PLATELET VOLUME 8.9 fL (9.0-12.2); PLATELET COUNT 272 10^3/uL (130-400); WHITE BLOOD COUNT 5.4 10^3/uL (4.3-11.0)
[2022-01-24 08:45] LABS: POTASSIUM 4.2 MMOL/L (3.6-5.0)
[2022-01-24 08:46] LABS: ALBUMIN 3.8 GM/DL (3.2-4.5)
[2022-01-24 08:47] LABS: CALCIUM 9.1 MG/DL (8.5-10.1)
[2022-01-24 08:48] LABS: TOTAL PROTEIN 6.7 GM/DL (6.4-8.2)
[2022-01-24 08:50] LABS: BILIRUBIN,TOTAL 0.5 MG/DL (0.1-1.0)
[2022-01-24 08:52] LABS: CREATININE SERUM 0.94 MG/DL (0.60-1.30)
== END ==
LOC: LAB 08:08
PROVIDERS: ATTEND Internal Medicine Cardiovascular Disease
DX: I25.10 Atherosclerotic heart disease of native coronary artery without angina pectoris (principal); I10 Essential (primary) hypertension
CPT/HCPCS: 36415; 80053; 80061; 83036; 84443; 85027

== ENCOUNTER → 2022-01-30 | Outpatient (CLI) | payer OTHER ==
[2022-01-30 10:52] VITALS: BP 121/70
--- NOTE | 2022-01-30 12:18 | Cardiology Stress Test Report ---
Stress Test Report Date of Procedure/Referring: Date of Procedure: Jan 30, 2022 [facility] Admitting Physician Admitting Physician: Attending Physician: Josi Wright MD Indications: HTN Baseline Heart Rate: 77 Baseline Blood Pressure: Blood Pressure Systolic: 121 Blood Pressure Diastolic: 70 Baseline EKG: Baseline EKG: NSR Summary/Conclusion: Summary: In summary, the patient started exercising with a baseline heart rate, blood pressure and EKG mentioned above Patient was able to exercise for a total of 6 minutes on Carlos protocol, METs 7.3 Maximum heart rate 153 Maximum blood pressure 187/96 Stress EKG, Minimal nondiagnostic changes Recovery EKG , Return to baseline Conclusion: 1. Good exercise tolerance for a total of 6 minutes on Carlos protocol, 7.3 METs, achieving 90 percent of maximum expected heart rate 2. Minimal nondiagnostic EKG changes with exercise returned to baseline during recovery 3. No arrhythmia was noted Copy Copies To 1: [facility]/ JOSI WRIGHT MD Jan 30, 2022 12:18
== END ==
LOC: CARD 09:30
PROVIDERS: ATTEND Internal Medicine Cardiovascular Disease
DX: R07.9 Chest pain, unspecified (principal); R00.2 Palpitations
CPT/HCPCS: 93017; C8929; 93306

== ENCOUNTER 2022-04-12 05:47 | Outpatient (CLI) | payer OTHER ==
[~2022-04-12] VITALS: Ht 182.8 cm; Wt 110.7 kg
[2022-04-12] MEDS ORDERED: BIOT1TAB PO (13:03)
[2022-04-12] MEDS ORDERED: MTP25TSR PO (13:03)
[2022-04-12] MEDS ORDERED: MELO15TA39 PO (13:03)
[2022-04-12] MEDS ORDERED: MULT-1136 PO (13:03)
[2022-04-12] MEDS ORDERED: ASCO100024 PO (13:03)
[2022-04-12] MEDS ORDERED: DICY20TA PO (13:03)
== END 2022-04-12 13:10 | disposition home or self-care (01) ==
LOC: PREOP 05:47
PROVIDERS: ATTEND Surgery
DX: Z01.818 Encounter for other preprocedural examination (principal)

== ENCOUNTER 2022-04-19 08:55 | Day surgery (SDC) | payer OTHER ==
[2022-04-19] VITALS (11 sets, daily range): BP systolic 104–130; BP diastolic 62–77
[~2022-04-19] VITALS: Ht 182.8 cm; Wt 110.7 kg
[~2022-04-19 08:55] MED LIST changes: +ASCO100024 PO; +BIOT1TAB PO; +DICY20TA PO; +MELO15TA39 PO; +MTP25TSR PO; +MULT-1136 PO
[2022-04-19] MEDS ORDERED: ceFAZolin INJECTION 2,000 MG in NS (IVPB) 50 ML IV ONE (09:15)
[2022-04-19] MEDS: LACTATED RINGERS 1,000 ML IV PRN ×2 (09:58→11:06)
--- NOTE | 2022-04-19 09:59 | Progress Note-Pre Operative ---
Pre-Operative Progress Note Date of Available H&P: Apr 11, 2022 Date H&P Reviewed: Apr 19, 2022 Time H&P Reviewed: 09:57 History & Physical: H&P Reviewed, Patient Examed, No changes noted Pre-Operative Diagnosis: right breast mass, site marked DINORAH GODOY DO Apr 19, 2022 09:59
[2022-04-19] MEDS ORDERED: BUP/EPI 0.5% 1:200,000 (SENSORCAINE) 30 ML VIAL ONE (10:22)
[2022-04-19] MEDS ORDERED: ONDANSETRON 4 MG/2 ML (SDV) Z0FRAN ONE (10:26)
[2022-04-19] MEDS ORDERED: LIDOCAINE PF 2% 5 ML (XYLOCAINE) VIAL ONE (10:26)
[2022-04-19] MEDS ORDERED: proPOfol 200 MG/20 ML (DIPRIVAN) VIAL IV ONE (10:26)
[2022-04-19] MEDS ORDERED: fentaNYL INJ 100 MCG/2 ML AMP ONE (10:26)
[2022-04-19] MEDS ORDERED: MIDAZOLAM 2 MG/2 ML (VERSED) VIAL ONE (10:27)
[2022-04-19] MEDS ORDERED: BUP/EPI 0.5% 1:200,000 (SENSORCAINE) 30 ML VIAL INJ ONE (10:45)
[2022-04-19] MEDS ORDERED: ACHD5005 PO (11:07)
--- NOTE | 2022-04-19 11:07 | Progress Note-Post Operative ---
Post-Operative Progess Note Surgeon (s)/Winding Machine Operator (s) Surgeon DINORAH GODOY DO Winding Machine Operator: TYRELL Loco Pre-Operative Diagnosis right breast mass, site marked Post-Operative Diagnosis same pending path Procedure & Operative Findings Date of Procedure 04/19/22 Procedure Performed/Findings Right breast biopsy Anesthesia Type LMA Estimated Blood Loss Estimated blood loss (mL): less than 5ml Specimens/Packing Specimens Removed right breast mass and breast tissue DINORAH GODOY DO Apr 19, 2022 11:06
--- NOTE | 2022-04-19 11:09 | Discharge Inst-Surgical ---
Discharge Inst-Surgical Depart Medication/Instructions New, Converted or Re-Newed RX: Transmitted to Pharmacy Patient Instructions Follow up Appt: Make appointment for 1 week. [phone] Instructions: No lifting greater than 20 pounds. No strenuous activity. May shower in 24 hours, no tub bath or soaking. Use incentive spirometer at home as directed. No Smoking Skin/Wound Care: May remove bandages in am. You need to leave the Dermabond on incision it will fall off on it's own. Symptoms to Report: Appetite Changes, Extremity Discoloration, Numbness/Tingling, Swelling Increased, Bleeding Excessive, Eyesight Changes, Pain Increased, Urine Color Change, Constipation(Persistent), Fever over 101 degree F, Pain/Pressure in chest, Urinating Difficulty, Cough Up/Vomit Blood, Heart Beat Irreg/Pounding, Pain/Pressure in jaw, Cramps in feet or legs, Lightheadedness, Pain/Pressure in shoulder, Diarrhea(Persistent), Memory Changes Suddenly, Questions/Concerns, Weight gain consecutive days, Dizziness/Fainting, Nausea/Vomiting, Shortness of Breath, Weight gain over 2 pounds If questions or concerns contact your physician Or seek help at emergency department. Activity Activity as Tolerated: Yes Activity Instructions: Avoid Stress to Incision Driving Instructions: No Driving/Refer to Dr. Ortiz Discharge Diet: No Restrictions Diet After 24 Hours: Clear Liquid if Nauseous If Any Problems/Questions/Issu: Contact Your Physician, Go to Emergency Room Skin/Wound Care Infection Signs and Symptoms: Increased Redness, Foul Odor of Wound, Increased Drainage, Skin Itchy or Has a Rash, Increased Swelling, Temperature Above 101 F Wound Care Comment: Wear a tight fitting bra (sports bra) for the next week, 24 hours per day except to shower Bathing Instructions: Shower Stitches/Kelsey/Dermabond Dis: DINORAH Ceballos DO Apr 19, 2022 11:09
[2022-04-19] MEDS ORDERED: SEVOFLURANE (ULTANE) 15 ML INHAL SOLN ONE (11:22)
[2022-04-19] MEDS ORDERED: morphine INJ 10 MG/ML 1ML (SYR OR VIAL) IVP ONE (11:30)
[2022-04-19] MEDS ORDERED: ONDANSETRON 4 MG/2 ML (SDV) Z0FRAN IVP PRN (11:30)
--- NOTE | 2022-04-19 11:53 | Anesthesia-General Post-Op ---
General Patient Condition Mental Status/LOC: Same as Preop Cardiovascular: Satisfactory Nausea/Vomiting: Absent Respiratory: Satisfactory Pain: Controlled Complications: Absent Post Op Complications Complications None Follow Up Care/Instructions Patient Instructions None needed. Anesthesia/Patient Condition Patient Condition Patient is in PACU awake and doing well with no complaints, stable vital signs, no apparent adverse anesthesia problems. No complications reported per nursing. ROCKY MAI DO Apr 19, 2022 11:53
[2022-04-19] MEDS ORDERED: HYDROcodone/APAP 5 MG/325 MG (LORTAB) TAB ONE (12:34)
[2022-04-19] MEDS ORDERED: HYDROcodone/APAP 5 MG/325 MG (LORTAB) TAB PO ONE (12:45)
--- NOTE | 2022-04-19 18:54 | OPERATIVE REPORT ---
DATE OF SERVICE: 04/19/2022 PREOPERATIVE DIAGNOSIS: Right breast mass. POSTOPERATIVE DIAGNOSIS: Right breast mass, pending pathology. PROCEDURE: Excision of right breast mass. SURGEON: Jono Galindo DO WET CROWN BLOCKING OPERATOR: , MS3. ANESTHESIA: LMA. BLOOD LOSS: Scant. FLUIDS: Per anesthesia. POSTOPERATIVE CONDITION: Stable. INDICATIONS FOR PROCEDURE: The patient is a 52-year-old female who has a mass in the right breast has been getting bigger, causing pain. She wanted this removed. FINDINGS: The patient had a right breast mass removed and sent to pathology. DESCRIPTION OF PROCEDURE: After informed consent was obtained, the patient was brought to the operating room and placed on the table in supine position. She was sterilely prepped and draped in normal fashion. The breast mass was at about the 7-8 o'clock position. I elected to make a radial incision directly over this mass. Infiltrated the skin with local and then around this mass with local to create a regional block. I then made an incision with 15 blade, carried down through skin and subcutaneous tissue, deep down to subcutaneous tissue with electrocautery, creating flaps superiorly and inferiorly to go down and around this mass, grasped this mass with an Allis and then started dissecting around with Bovie electrocautery, completely removing this en bloc and passed off table, copiously irrigated with normal saline, approximately 250 mL at least and then obtained hemostasis using electrocautery. I elected to close the incision, closing the subcutaneous tissue, the breast tissue with 3-0 Vicryl three interrupted subcuticular stitches and subcutaneous stitches and then closed the incision with a 4-0 undyed Monocryl in a running subcuticular fashion. Area was cleaned and dried. Dermabond placed as well as then fluff and pressure dressing. The patient tolerated the procedure well. She was transferred to recovery room in stable condition. Sponge and needle count correct at the end of the case. Job ID: [id number] DocumentID: [id number] Dictated Date: 04/19/2022 11:15:44 Plywood Scarfer Tender Date: 04/19/2022 18:52:00 Dictated By: JONO GALINDO DO
== END 2022-04-19 13:25 | disposition home or self-care (01) ==
LOC: SDC 08:55
PROVIDERS: ATTEND Surgery
DX: D24.1 Benign neoplasm of right breast (principal); E66.9 Obesity, unspecified; G47.33 Obstructive sleep apnea (adult) (pediatric); Z68.33 Body mass index [BMI] 33.0-33.9, adult; Z87.891 Personal history of nicotine dependence
CPT/HCPCS: 84703; 87081; 88305

== ENCOUNTER 2022-07-04 05:42 | Outpatient (CLI) | payer OTHER ==
[~2022-07-04] VITALS: Ht 182.9 cm; Wt 106.5 kg
[2022-07-05] MEDS ORDERED: SEMA1PEN3 SQ (09:02)
[2022-07-05] MEDS ORDERED: BUPR-42 PO (09:02)
[2022-07-05] MEDS ORDERED: MECL-149 PO (09:02)
== END 2022-07-05 09:39 | disposition home or self-care (01) ==
LOC: PREOP 05:42
PROVIDERS: ATTEND Obstetrics & Gynecology
DX: Z01.818 Encounter for other preprocedural examination (principal)

== ENCOUNTER 2022-07-11 08:03 | Day surgery (SDC) | payer OTHER ==
[2022-07-11] VITALS (10 sets, daily range): BP systolic 97–121; BP diastolic 60–77
[~2022-07-11] VITALS: Ht 182 cm; Wt 106.5 kg
[~2022-07-11 08:03] MED LIST changes: +BUPR-42 PO; +MECL-149 PO; +SEMA1PEN3 SQ
[2022-07-11] MEDS ORDERED: LACTATED RINGERS 1,000 ML IV PRN (09:00)
[2022-07-11] MEDS ORDERED: BUPIVACAINE 0.25% 30 ML (SENSORCAINE) VIAL ONE (09:41)
[2022-07-11] MEDS ORDERED: proPOfol 200 MG/20 ML (DIPRIVAN) VIAL IV ONE (10:34)
[2022-07-11] MEDS ORDERED: ONDANSETRON 4 MG/2 ML (SDV) Z0FRAN ONE (10:34)
[2022-07-11] MEDS ORDERED: fentaNYL INJ 100 MCG/2 ML AMP ONE (10:34)
[2022-07-11] MEDS ORDERED: LIDOCAINE PF 2% 5 ML (XYLOCAINE) VIAL ONE (10:34)
[2022-07-11] MEDS ORDERED: MIDAZOLAM 2 MG/2 ML (VERSED) VIAL ONE (10:35)
[2022-07-11] MEDS ORDERED: KETOROLAC 30 MG/ML VIAL ONE (11:30)
--- NOTE | 2022-07-11 11:36 | Progress Note-Pre Operative ---
Pre-Operative Progress Note Date of Available H&P: Jul 11, 2022 Date H&P Reviewed: Jul 11, 2022 Time H&P Reviewed: 11:15 History & Physical: H&P Reviewed, Patient Examed, No changes noted Pre-Operative Diagnosis: NATY CHENG DO Jul 11, 2022 11:36
--- NOTE | 2022-07-11 11:37 | Discharge Inst-Women's Service ---
Discharge Inst-Women's Serv Depart Medication/Instructions New, Converted or Re-Newed RX: Other (OTC meds) Problems Reviewed?: Yes Consults/Follow Up Additional Follow Up: Yes Activity Activity: Activity as Tolerated Driving Instructions: No Driving for 1 Week NO SMOKING: NO SMOKING Nothing Inside Vagina: No Douching, No [place], No Tampons Diet Discharge Diet: No Restrictions Symptoms to Report to : Bleeding Excessive, Pain Increased, Fever Over 101 Degrees F, Vaginal Bleeding Increase, Questions/Concerns For Any Problems or Questions: Contact Your Physician NATY BAILON DO Jul 11, 2022 11:37
[2022-07-11] MEDS ORDERED: HYDROcodone/APAP 5 MG/325 MG (LORTAB) TAB PO PRN (11:45)
[2022-07-11] MEDS ORDERED: SEVOFLURANE (ULTANE) 15 ML INHAL SOLN ONE (11:45)
[2022-07-11] MEDS ORDERED: D5 LR IV SOLUTION 1,000 ML IV SCH (11:45)
[2022-07-11] MEDS ORDERED: ONDANSETRON 4 MG/2 ML (SDV) Z0FRAN IVP PRN ×2 (11:45→12:00)
[2022-07-11] MEDS ORDERED: KETOROLAC 30 MG/ML VIAL IVP ONE (11:45)
[2022-07-11] MEDS ORDERED: morphine INJ 10 MG/ML 1ML (SYR OR VIAL) IVP ONE (12:00)
[2022-07-11] MEDS ORDERED: HYDROmorphone 2 MG/ML VIAL (DILAUDID) IV ONE (12:00)
[2022-07-11] MEDS ORDERED: MEPERIDINE (DEMEROL) INJ 50 MG/ML IVP ONE (12:00)
[2022-07-11] MEDS ORDERED: BUPIVACAINE 0.25% 30 ML (SENSORCAINE) VIAL INJ ONE (12:02)
--- NOTE | 2022-07-11 13:32 | Anesthesia-General Post-Op ---
General Patient Condition Mental Status/LOC: Same as Preop Cardiovascular: Satisfactory Nausea/Vomiting: Absent Respiratory: Satisfactory Pain: Controlled Complications: Absent Post Op Complications Complications None Follow Up Care/Instructions Patient Instructions None needed. Anesthesia/Patient Condition Patient Condition Patient is doing well, no complaints, stable vital signs, no apparent adverse anesthesia problems. No complications reported per nursing. AZALEA COOPER CRNA Jul 11, 2022 13:32
--- NOTE | 2022-07-11 21:42 | OPERATIVE REPORT ---
DATE OF SERVICE: 07/11/2022 PREOPERATIVE DIAGNOSIS: A 52-year-old female with abnormal uterine bleeding. POSTOPERATIVE DIAGNOSIS: A 52-year-old female with abnormal uterine bleeding. PROCEDURE: D and C. SURGEON: Naty Bailon DO ANESTHESIA: LMA general. ESTIMATED BLOOD LOSS: Minimal. URINE OUTPUT: 50 mL drained at the start of the procedure. FLUIDS: 800 mL lactated Ringer's solution. FINDINGS: A moderate to copious amount of endometrial curettings. Grossly normal-appearing external female genitalia, normal-appearing vaginal mucosa and cervix. SPECIMEN SENT: Endometrial curettings. INDICATIONS FOR PROCEDURE: This 52-year-old female patient had sought care in my office for abnormal uterine bleeding. She did have a thickened endometrium noted at 52 years of age and had heavy bleeding, change in her pattern, which indicated an endometrial biopsy. Discussed with the patient D and C versus endometrial biopsy in the office. With the potential curative factors of D and C. The patient opted to proceed with D and C. Risks of the procedure were discussed with the patient in detail and after all of her questions were answered, she agreed to proceed. Consent was obtained. The patient was taken to the operating room. OPERATIVE REPORT IN DETAIL: Once in the operating room, general anesthesia was found to be adequate, she was placed in dorsal lithotomy position, prepped and draped in normal sterile fashion. A timeout was performed. A straight catheterization was performed to empty the bladder. A weighted speculum was inserted to the patient's vagina. Right angle retractor was utilized to visualize the cervix, was grasped at 12 o'clock position using a long single tooth tenaculum. I then performed a paracervical block at 3 and 9 o'clock positions on the cervix. Care was taken to aspirate for injecting, a total of 5 mL are injected into each site. I then gently sound the uterine cavity, depth was found to be 8 cm. I then gently dilated the cervix using Hanks dilators to maximum dilatation of 8 mm, at which point I performed a gentle curettage using a medium size endometrial curette. All of this tissue was collected from all endometrial surfaces in all directions until a gentle uterine cry is appreciated. All the tissue was collected and sent as endometrial curettings together, after which, no active bleeding noted from the external cervical os or the tenaculum site and the tenaculum was removed. All instruments were removed from the patient's vagina. The patient tolerated the procedure well and was taken to recovery area in stable condition. Lap and sponge counts were correct at the end of the procedure. Instrument counts correct as well. Job ID: [id number] DocumentID: [id number] Dictated Date: 07/11/2022 12:16:07 Putaway Driver Date: 07/11/2022 21:41:00 Dictated By: NATY BAILON DO
== END 2022-07-11 14:05 | disposition home or self-care (01) ==
LOC: SDC 08:03
PROVIDERS: ATTEND Obstetrics & Gynecology
DX: N84.0 Polyp of corpus uteri (principal); E66.9 Obesity, unspecified; Z68.32 Body mass index [BMI] 32.0-32.9, adult; G47.33 Obstructive sleep apnea (adult) (pediatric); K21.9 Gastro-esophageal reflux disease without esophagitis; Z87.891 Personal history of nicotine dependence; Z79.899 Other long term (current) drug therapy
CPT/HCPCS: 84703; 87081

== ENCOUNTER 2022-08-16 05:53 | Outpatient (CLI) | payer OTHER ==
[~2022-08-16] VITALS: Ht 182.9 cm; Wt 104.3 kg
[2022-08-16] MEDS ORDERED: PRAZ1CAP2 PO (10:35)
[2022-08-16] MEDS ORDERED: SEMA0.258 SQ (10:35)
== END 2022-08-16 10:38 | disposition home or self-care (01) ==
LOC: PREOP 05:53
PROVIDERS: ATTEND Surgery
DX: Z01.818 Encounter for other preprocedural examination (principal)

== ENCOUNTER 2022-08-28 08:00 | Day surgery (SDC) | payer OTHER ==
[~2022-08-28] VITALS: Ht 182 cm; Wt 104.0 kg
[~2022-08-28 08:00] MED LIST changes: +PRAZ1CAP2 PO; +SEMA0.258 SQ
[2022-08-28] MEDS ORDERED: LACTATED RINGERS 1,000 ML IV STA (08:08)
[2022-08-28] MEDS ORDERED: HURRICAINE EXT TUBE (BENZOCAINE) XX PRN (08:15)
[2022-08-28 08:39] VITALS: BP 121/80
--- NOTE | 2022-08-28 08:58 | Progress Note-Pre Operative ---
Pre-Operative Progress Note Date of Available H&P: August 03, 2022 Date H&P Reviewed: Aug 28, 2022 Time H&P Reviewed: 08:55 History & Physical: H&P Reviewed, Patient Examed, No changes noted Pre-Operative Diagnosis: Screening, DINORAH SUAREZ DO Aug 28, 2022 08:58
[2022-08-28] MEDS ORDERED: PROPOFOL INJECTION 50 ML IV ONE (09:18)
[2022-08-28 09:40] VITALS: BP 86/51
--- NOTE | 2022-08-28 09:40 | Anesthesia-General Post-Op ---
MAC Patient Condition Mental Status/LOC: Same as Preop Cardiovascular: Satisfactory Nausea/Vomiting: Absent Respiratory: Satisfactory Pain: Controlled Complications: Absent Post Op Complications Complications None Follow Up Care/Instructions Patient Instructions None needed. Anesthesiology Discharge Order Discharge Order Patient is doing well, no complaints, stable vital signs, no apparent adverse anesthesia problems. No complications reported per nursing. ABRAHAN QUIGLEY CRNA Aug 28, 2022 09:40
[2022-08-28 09:45] VITALS: BP 87/51
--- NOTE | 2022-08-28 09:47 | Progress Note-Post Operative ---
Post-Operative Progess Note Surgeon (s)/Asbestos Worker (s) Surgeon DINORAH GODOY DO Asbestos Worker: none Pre-Operative Diagnosis Screening, GERD Post-Operative Diagnosis Gastritis with bleed Poor prep Procedure & Operative Findings Date of Procedure 08/28/22 Procedure Performed/Findings EGD with biopsy Colonoscopy cut short PROCEDURE NOTE: After informed consent was obtained, the patient was brought to the endoscopy suite, placed in bed in left lateral decubitus position. She was administered IV sedation by the COMMUNITY RELATIONS ASSISTANT who then monitored vitals the entire time, heart rate, blood pressure and pulse ox and the scope was inserted down the mouth through the esophagus into the stomach. On the way down, noted some mild esophagitis, took a picture, pushed into the stomach, pushed past the antrum into the duodenum. Duodenum looked good. Pulled back and did a biopsy of antrum, then retroflexed the scope, did not see a hiatal hernia and then pulled the scope into the GE junction. Took another picture and then did a biopsy of the GE junction. Pushed the scope back into the stomach, suctioned all the air out of the stomach. At this point pulled the scope up the esophagus and out the mouth. Switched camera, switched gloves, went down below, started the colonoscopy. Unfortunately, as soon as I put the scope in I encountered fully formed stool and liquid fecal material. I pushed up to about the splenic flexure but continued to encounter fecal material and elected to stop. Gently removed the scope into the descending colon down into the sigmoid and then into the rectum and took a picture of the internal hemorrhoids as I pulled the scope out. The patient tolerated the procedure and she recovered in the endoscopy suite. Recommended for repeat colonoscopy in 1 year because of the unsuccessful colonoscopy. Anesthesia Type IV sedation by COMMUNITY RELATIONS ASSISTANT Estimated Blood Loss Estimated blood loss (mL): scant Specimens/Packing Specimens Removed antral bx GE jxn bx DINORAH GODOY DO Aug 28, 2022 09:47
--- NOTE | 2022-08-28 09:49 | Endoscopy Discharge Instruct ---
Endo Procedure/Findings Findings 1.: Gastritis 2.: Internal Hemorrhoids 3.: Other Findings (poor prep) Discharge Instructions - Activity: You might feel a little sleepy until tomorrow. This is due to the medicine you received to relax you. Until tomorrow, you should: NOT drive a car, operate machinery or power tools. NOT drink any alcoholic beverages. NOT make any important decisions or sign importortant papers. Do not return to work until tomorrow, unless otherwise instructed. Resume previous activities tomorrow. Diet: Start by taking liquids. If you tolerate liquids, advance to solid food. 1.: EGD in 3 years 2.: Other Recommendation (colonoscopy in less than a year) Notify Physician - If you experience excessive bleeding, unusual abdominal pain, fever, or chest pain, contact your doctor immediately. Follow-Up: Other Follow up in my office in one week DINORAH GODOY DO Aug 28, 2022 09:49
[2022-08-28 09:50] VITALS: BP 94/57
[2022-08-28 10:09] VITALS: BP 94/57
== END 2022-08-28 10:44 | disposition home or self-care (01) ==
LOC: ENDO 08:00
PROVIDERS: ATTEND Surgery
DX: Z12.11 Encounter for screening for malignant neoplasm of colon (principal); K21.00 Gastro-esophageal reflux disease with esophagitis, without bleeding; K29.51 Unspecified chronic gastritis with bleeding
CPT/HCPCS: 84703; 88305

== ENCOUNTER → 2023-01-31 | Outpatient (CLI) | payer OTHER ==
[~2023-01-31] MED LIST changes: -MECL-149 PO; +MECL-291 PO
[2023-01-31 10:33] VITALS: BP 105/66
--- NOTE | 2023-01-31 16:49 | Cardiology Stress Test Report ---
Stress Test Report Date of Procedure/Referring: Date of Procedure: Jan 31, 2023 [facility] Admitting Physician Admitting Physician: Attending Physician: Josi Wright MD Baseline Heart Rate: 61 Baseline Blood Pressure: Blood Pressure Systolic: 105 Blood Pressure Diastolic: 66 Baseline EKG: Baseline EKG: NSR Summary/Conclusion: Summary: In summary, the patient started exercising with a baseline heart rate, blood pressure and EKG mentioned above Patient was able to exercise for a total of 9 minutes on Carlos protocol, METs 10.5 Maximum heart rate 136 Maximum blood pressure 193/105 Stress EKG, Minimal nondiagnostic changes Recovery EKG , Return to baseline Conclusion: 1. Good exercise tolerance for a total of 9 minutes on Carlos protocol, 10.5 METs, achieving 80 percent of maximum expected heart rate 2. Minimal nondiagnostic EKG changes with exercise returned to baseline during recovery 3. No arrhythmia was noted Copy Copies To 1: [facility]/ JOSI WRIGHT MD Jan 31, 2023 16:49
== END ==
LOC: RAD 08:32
PROVIDERS: ATTEND Internal Medicine Cardiovascular Disease
DX: R00.2 Palpitations (principal); G43.909 Migraine, unspecified, not intractable, without status migrainosus; R07.9 Chest pain, unspecified
CPT/HCPCS: 93017

== ENCOUNTER 2023-02-16 07:52 | Outpatient (CLI) | payer OTHER ==
[~2023-02-16] VITALS: Ht 182 cm; Wt 98.8 kg
== END 2023-02-19 13:27 ==
LOC: PREOP 07:52
PROVIDERS: ATTEND Surgery
DX: Z01.818 Encounter for other preprocedural examination (principal)